=== PATIENT | female | born 1955 | race Caucasian/White ===

== ENCOUNTER 2020-09-13 16:33 | Outpatient (REF) | payer BC, SELFPAY | END 2020-09-13 16:34 | disposition home or self-care (01) | LOC: HO.LNP 16:33 | PROVIDERS: Visit Provider Hospitalist | DX: R30.0 Dysuria (principal) | CPT/HCPCS: 87086 ==

== ENCOUNTER 2020-09-23 11:01 | Outpatient (REF) | payer BC, SELFPAY | END 2020-09-23 11:02 | disposition home or self-care (01) | LOC: HO.BBR 11:01 | PROVIDERS: Visit Provider Internal Medicine Medical Oncology | DX: E83.110 Hereditary hemochromatosis (principal) | CPT/HCPCS: 99195 ==

== ENCOUNTER → 2020-10-14 11:32 | Outpatient (BNVA) | payer BC, SELFPAY | PROVIDERS: Visit Provider Internal Medicine | DX: Z76.89 Persons encountering health services in other specified circumstances (principal) ==

== ENCOUNTER 2020-10-21 12:48 | Outpatient (REF) | payer BC, SELFPAY ==
[2020-10-21 15:19] LABS: Glucose Urine UA NEG (NEG); Leukocyte Esterase Urine NEG (NEG); Nitrite Urine NEG (NEG); PH 5.5 (5.0-8.0); Urine Blood 1+ (NEG); Urine Ketones NEG (NEG); Urine Protein NEG (NEG-TRACE)
[2020-10-21 15:20] LABS: Appearance Urine CLEAR; Color Urine YELLOW
[2020-10-21 15:29] LABS: Thyroid Stimulating Hormone 5.18 uIU/mL (0.32-4.0)
[2020-10-21 15:35] LABS: Squamous Epithelial Cell Urine TRACE /LPF; WBC Urine 0 /HPF (0-4)
== END 2020-10-21 12:49 | disposition home or self-care (01) ==
LOC: HO.LAB 12:48
PROVIDERS: PCP Internal Medicine; Visit Provider Internal Medicine
DX: E03.9 Hypothyroidism, unspecified (principal); R35.0 Frequency of micturition
CPT/HCPCS: 81001; 81003; 84439; 84443

== ENCOUNTER → 2021-01-06 13:00 | Outpatient (BNV) | payer BC, SELFPAY | PROVIDERS: PCP Internal Medicine; Visit Provider Internal Medicine Medical Oncology | DX: E83.119 Hemochromatosis, unspecified (principal); M81.0 Age-related osteoporosis without current pathological fracture; Z86.000 Personal history of in-situ neoplasm of breast | CPT/HCPCS: 99213; 99214 ==

== ENCOUNTER 2021-01-10 14:59 | Outpatient (REF) | payer BC, SELFPAY | END 2021-01-10 15:00 | disposition home or self-care (01) | LOC: HO.BBR 14:59 | PROVIDERS: Visit Provider Internal Medicine Medical Oncology | DX: Z13.89 Encounter for screening for other disorder (principal) ==

== ENCOUNTER 2021-02-13 16:36 | Outpatient (REF) | payer BC, SELFPAY ==
[2021-02-13 18:09] LABS: Free T4 (Free Thyroxine) 1.22 ng/dL (0.71-1.85); Thyroid Stimulating Hormone 1.55 uIU/mL (0.32-4.0)
== END 2021-02-13 16:37 | disposition home or self-care (01) ==
LOC: HO.LAB 16:36
PROVIDERS: PCP Internal Medicine; Visit Provider Internal Medicine
DX: E03.9 Hypothyroidism, unspecified (principal)
CPT/HCPCS: 36415; 84439; 84443

== ENCOUNTER 2021-04-15 12:34 | Outpatient (REF) | payer BC, SELFPAY ==
[2021-04-15 13:56] LABS: Cholesterol 212 mg/dL; HDL Cholesterol 74 mg/dL; LDL Cholesterol Calculated 123 mg/dl; Triglycerides 76 mg/dL
== END 2021-04-15 12:35 | disposition home or self-care (01) ==
LOC: HO.LAB 12:34
PROVIDERS: Absent Provider Internal Medicine; PCP Internal Medicine; Visit Provider Internal Medicine
DX: Z00.01 Encounter for general adult medical examination with abnormal findings (principal); E03.9 Hypothyroidism, unspecified
CPT/HCPCS: 36415; 80061; 84443

== ENCOUNTER → 2021-04-21 12:50 | Outpatient (BNVA) | payer BC, SELFPAY | PROVIDERS: PCP Internal Medicine; Visit Provider Internal Medicine ==

== ENCOUNTER 2021-04-26 07:49 | Outpatient (REF) | payer BC, SELFPAY ==
--- NOTE | ~2021-04-26 | MM_ITS ---
EXAMINATION: MM SCREENING DIGITAL BREAST TOMOSYNTHESIS, BILATERAL CLINICAL INFORMATION: Screening. Asymptomatic. Prior history left lumpectomy and radiation 1997 for breast cancer. Due for yearly exam. COMPARISON: Mammography: 12/29/2019, 11/05/2018, 09/14/2017 TECHNIQUE: Digital breast tomosynthesis is performed in both the craniocaudal and mediolateral oblique views along with computer-aided detection (CAD). Synthesized 2D images are generated from the tomosynthesis. FINDINGS: There are scattered areas of fibroglandular density (ACR BI-RADS breast composition Category b). Parenchymal pattern is similar to prior exams. Left breast has post therapy changes with reduced breast size, old scarring and dystrophic calcifications posterior upper outer quadrant. Right breast is stable oval nodule posterior 3:00 position. Neither breast shows interval mass or developing density or interval architectural abnormality. There are no abnormal calcifications. The axilla are unremarkable. No significant changes. MM/MM tomosynthesis screening BI IMPRESSION: 1. No mammographic evidence of malignancy. 2. No significant changes from prior exams. 3. Post therapy changes left breast. ASSESSMENT: BI-RADS 2: Benign RECOMMENDATION: Routine annual mammography screening. This patient's information was entered into a reminder system with a target due date for their next mammogram.
== END 2021-04-26 07:50 | disposition home or self-care (01) ==
LOC: HO.MAMMO 07:49
PROVIDERS: PCP Internal Medicine; Visit Provider Internal Medicine
DX: Z12.31 Encounter for screening mammogram for malignant neoplasm of breast (principal)
CPT/HCPCS: 77063; 77067

== ENCOUNTER 2021-04-29 11:03 | Outpatient (REF) | payer BC, SELFPAY ==
[2021-04-29 14:02] LABS: Iron 147 mcg/dL (30-160); Percent Iron Saturation 49 % (15-50); Total Iron Binding Capacity 302 mcg/dL (228-428); Unsaturated Iron Binding 155 ug/dL
[2021-04-29 14:20] LABS: Ferritin 29 ng/mL (10-250)
== END 2021-04-29 11:04 | disposition home or self-care (01) ==
LOC: HO.BBR 11:03
PROVIDERS: Visit Provider Internal Medicine Medical Oncology
DX: E83.110 Hereditary hemochromatosis (principal)
CPT/HCPCS: 36415; 82728; 83540

== ENCOUNTER 2021-06-30 09:47 | Outpatient (REF) | payer BC, SELFPAY ==
--- NOTE | ~2021-06-30 | US_ITS ---
EXAMINATION: US RETROPERITONEAL COMPLETE (RENAL) CLINICAL INFORMATION: Urgency of urination. COMPARISON: None TECHNIQUE: Real-time imaging of the kidneys and bladder. FINDINGS: RIGHT KIDNEY: 11.0 x 3.9 x 5.3 cm (SAG x AP x TRV). The kidney is normal in size, contour, and echogenicity. Renal cortical thickness is normal. No calculi or focal parenchymal lesions. No hydronephrosis. LEFT KIDNEY: 10.4 x 4.3 x 4.3 cm (SAG x AP x TRV). The kidney is normal in size, contour, and echogenicity. Renal cortical thickness is normal. No calculi or focal parenchymal lesions. No hydronephrosis. BLADDER: Well distended and normal. Bilateral ureteral jets are demonstrated. Prevoid bladder volume is 492 mL. Postvoid bladder volume is 12.4 mL. US/US retroperitoneal comp IMPRESSION: Normal renal and bladder ultrasound.
== END 2021-06-30 09:48 | disposition home or self-care (01) ==
LOC: HO.US 09:47
PROVIDERS: Visit Provider Urology
DX: R39.15 Urgency of urination (principal)
CPT/HCPCS: 76770

== ENCOUNTER 2021-07-09 17:16 | Outpatient (REF) | payer BC, SELFPAY ==
[2021-07-09 18:34] LABS: Alanine Aminotransferase 15 U/L (0-31); Albumin Level 4.5 g/dL (3.5-5.0); Alkaline Phosphatase 79 U/L (39-117); Anion Gap 16 (12-20); Aspartate Amino Transferase 21 U/L (5-31); Bilirubin Total 0.3 mg/dL (0.0-1.0); Blood Urea Nitrogen 17 mg/dL (9-16); Carbon Dioxide 21 mmol/L (22-29); Chloride 106 mmol/L (96-108); Estimated Glomerular Filt Rate > 60; Glucose Random 109 mg/dL (60-115); Phosphorus 4.5 mg/dL (2.7-4.5); Potassium 4.6 mmol/L (3.3-5.1); Sodium 138 mmol/L (135-145); Total Protein 6.9 g/dL (6.5-8.0)
[2021-07-09 18:51] LABS: Free T4 (Free Thyroxine) 1.15 ng/dL (0.71-1.85); Thyroid Stimulating Hormone 2.27 uIU/mL (0.32-4.0); Vitamin D 25-OH Total 27.1 ng/mL (>30)
[2021-07-10 15:56] LABS: Calcium (PTHI) 10.2 mg/dL (8.6-10.4); PTHI 74 pg/mL (14-64)
== END 2021-07-09 17:17 | disposition home or self-care (01) ==
LOC: HO.LAB 17:16
PROVIDERS: PCP Internal Medicine; Visit Provider Internal Medicine
DX: E21.3 Hyperparathyroidism, unspecified (principal); E03.9 Hypothyroidism, unspecified; M81.0 Age-related osteoporosis without current pathological fracture; E55.9 Vitamin D deficiency, unspecified
CPT/HCPCS: 36415; 80053; 82306; 83970; 84100; 84439; 84443

== ENCOUNTER 2021-07-14 10:59 | Outpatient (REF) | payer BC, SELFPAY ==
[2021-07-14 12:04] LABS: Total Volume 24 Hour Urine 2675 mL
[2021-07-14 12:12] LABS: Creatinine, 24Hr Urine 1.1 G/Day (1.0-2.0); Creatinine, mg/dL 40.34
[2021-07-16 17:11] LABS: Calcium, 24 Hr Urine 64 mg/24 h; Calcium/Creatinine Ratio 59 mg/g creat (30-275)
== END 2021-07-14 11:00 | disposition home or self-care (01) ==
LOC: HO.LNP 10:59
PROVIDERS: Visit Provider Internal Medicine
DX: M81.0 Age-related osteoporosis without current pathological fracture (principal)
CPT/HCPCS: 82340; 82570

== ENCOUNTER 2021-07-22 15:14 | Outpatient (REF) | payer BC, SELFPAY ==
[2021-07-22 15:58] LABS: COVID-19 Test Negative (Negative); IDNOW Serial# 08D9AD1C
== END 2021-07-22 15:15 | disposition home or self-care (01) ==
LOC: HO.LAB 15:14
PROVIDERS: PCP Internal Medicine; Visit Provider Internal Medicine
DX: Z20.822 Contact with and (suspected) exposure to COVID-19 (principal)
CPT/HCPCS: 36415; 87635; C9803

== ENCOUNTER → 2021-07-28 09:41 | Outpatient (BNVA) | payer BC, SELFPAY | PROVIDERS: PCP Internal Medicine; Visit Provider Internal Medicine ==

== ENCOUNTER 2021-07-29 08:53 | Outpatient (REF) | payer BC, SELFPAY ==
--- NOTE | ~2021-07-29 | XR_ITS ---
EXAMINATION: XR CHEST CLINICAL INFORMATION: J40 - Bronchitis, not specified as acute or chronic COMPARISON: None TECHNIQUE: 2 views of the chest were obtained. FINDINGS: There are subtle bilateral apical densities which may represent pleural-parenchymal scarring and/or superimposed apical blebs. There is a subtle opacity left suprahilar region just over a centimeter. There is no hyperinflation. No lobar or segmental airspace consolidation, vascular congestion, or effusion. The heart is normal in size and the hilar and mediastinal contours are normal. The costophrenic sulci are clear. Bony structures are unremarkable. XR/XR chest 2V IMPRESSION: 1. Subtle small bilateral apical densities and left suprahilar opacity of uncertain chronicity. 2. No lobar or segmental airspace consolidation, vascular congestion, or effusion.
== END 2021-07-29 08:54 | disposition home or self-care (01) ==
LOC: HO.HMGCX 08:53
PROVIDERS: PCP Internal Medicine; Visit Provider Internal Medicine
DX: Z20.822 Contact with and (suspected) exposure to COVID-19 (principal); J40 Bronchitis, not specified as acute or chronic; J06.9 Acute upper respiratory infection, unspecified
CPT/HCPCS: 71046; U0003; U0005

== ENCOUNTER 2021-08-07 14:54 | Outpatient (REF) | payer BC, SELFPAY ==
[2021-08-07 16:29] LABS: Iron 124 mcg/dL (30-160); Percent Iron Saturation 45 % (15-50); Total Iron Binding Capacity 277 mcg/dL (228-428); Unsaturated Iron Binding 153 ug/dL
[2021-08-07 16:50] LABS: Ferritin 25 ng/mL (10-250)
== END 2021-08-07 14:55 | disposition home or self-care (01) ==
LOC: HO.BBR 14:54
PROVIDERS: Visit Provider Internal Medicine Medical Oncology
DX: E83.110 Hereditary hemochromatosis (principal)
CPT/HCPCS: 36415; 82728; 83540

== ENCOUNTER 2021-11-07 12:26 | Outpatient (REF) | payer BC, SELFPAY ==
[2021-11-07 14:31] LABS: Iron 146 mcg/dL (30-160); Percent Iron Saturation 48 % (15-50); Total Iron Binding Capacity 305 mcg/dL (228-428); Unsaturated Iron Binding 159 ug/dL
[2021-11-07 14:39] LABS: Ferritin 28 ng/mL (10-250)
== END 2021-11-07 12:27 | disposition home or self-care (01) ==
LOC: HO.BBR 12:26
PROVIDERS: PCP Internal Medicine; Visit Provider Internal Medicine Medical Oncology
DX: E83.110 Hereditary hemochromatosis (principal)
CPT/HCPCS: 36415; 82728; 83540

== ENCOUNTER 2022-01-13 08:22 | Outpatient (REF) | payer BC, SELFPAY ==
--- NOTE | ~2022-01-13 | XR_ITS ---
EXAMINATION: XR CHEST CLINICAL INFORMATION: Pleurisy. COMPARISON: Chest 07/29/2021 TECHNIQUE: 2 views of the chest were obtained. FINDINGS: The lungs are well-expanded with patchy opacity in the left upper lobe. Also visualized is bilateral apical parenchymal densities likely scarring with apical pleural thickening. Rest of the lungs are clear. Heart size and pulmonary vascularity is normal. No gross bony abnormality seen. XR/XR chest 2V IMPRESSION: The lungs are well-expanded with patchy opacity seen in left upper lobe and bilateral apical densities. No major change compared to previous study 07/29/2021.
== END 2022-01-13 08:23 | disposition home or self-care (01) ==
LOC: HO.HMGCX 08:22
PROVIDERS: PCP Internal Medicine; Visit Provider Internal Medicine
DX: R09.1 Pleurisy (principal)
CPT/HCPCS: 71046

== ENCOUNTER 2022-02-06 12:01 | Outpatient (REF) | payer BC, SELFPAY | END 2022-02-06 12:02 | disposition home or self-care (01) | LOC: HO.BBR 12:01 | PROVIDERS: Visit Provider Internal Medicine Medical Oncology | DX: Z13.89 Encounter for screening for other disorder (principal) ==

== ENCOUNTER 2022-02-26 12:49 | Outpatient (REF) | payer BC, SELFPAY | END 2022-02-26 12:50 | disposition home or self-care (01) | LOC: HO.BBR 12:49 | PROVIDERS: Visit Provider Internal Medicine Medical Oncology | DX: Z13.89 Encounter for screening for other disorder (principal) ==

== ENCOUNTER 2022-05-15 13:00 | Outpatient (REF) | payer BC, SELFPAY ==
[2022-05-15 13:18] LABS: MANUAL DIFF FLAG NO
[2022-05-15 13:20] LABS: Basophils Percent Auto 0.5 % (0-2); Eosinophils Absolute Auto 0.1 X10*3/uL (0.0-0.4); Eosinophils Percent Auto 1.8 % (0-4); Hematocrit 36.9 % (37.0-47.0); Hemoglobin 12.6 g/dl (12.0-16.0); Imm Gran Abs Auto 0.02 X10*3/uL (0.00-0.03); Imm Gran Pct Auto 0.3 % (0.0-0.4); Lymphocytes Absolute Auto 2.5 X10*3/uL (1.2-4.9); Lymphocytes Percent Auto 32.5 % (20-40); Mean Corpuscular HGB Conc 34.1 g/dl (31.0-35.0); Mean Corpuscular Volume 90.9 fL (80.0-98.0); Mean Platelet Volume 9.7 fL (9.4-12.3); Monocytes Absolute Auto 0.8 X10*3/uL (0.1-1.2); Monocytes Percent Auto 10.7 % (2-11); Neutrophils Absolute Auto 4.1 x10*3/uL (2.0-8.3); Neutrophils Percent Auto 54.2 % (45-73); Platelet Count 232 X10*3/uL (160-400); Red Blood Count 4.06 X10*6/uL (4.20-5.50); Red Cell Distribution Width 13.7 % (11.0-16.0); White Blood Count 7.6 X10*3/uL (4.8-10.8)
[2022-05-15 13:43] LABS: Iron 121 mcg/dL (30-160); Percent Iron Saturation 39 % (15-50); Total Iron Binding Capacity 310 mcg/dL (228-428); Unsaturated Iron Binding 189 ug/dL
[2022-05-15 14:03] LABS: Ferritin 20 ng/mL (10-250)
== END 2022-05-15 13:01 | disposition home or self-care (01) ==
LOC: HO.BBR 13:00
PROVIDERS: Visit Provider Internal Medicine Medical Oncology
DX: E83.110 Hereditary hemochromatosis (principal)
CPT/HCPCS: 36415; 82728; 83540; 85025

== ENCOUNTER 2022-05-22 06:22 | Day surgery (SDC) | payer BC, SELFPAY ==
[2022-05-14 10:40] VITALS: BMI 24.6
--- NOTE | 2022-05-21 12:01 | HO.ANESPROP2 ---
Documented by User: Prerna Castaneda NP 05/21/22 12:02 HPI - Anesthesia Eval Consult details Narrative: 66yo F for Colonoscopy PMFSH Active Problems Active Problems: All Active Problems (Updated 05/14/22 @ 09:47 by Olga Watson RN) Dysuria (Acute) Osteoporosis (Acute) Vitamin D deficiency (Acute) Hypothyroidism (Acute) Hyperparathyroidism (Acute) Urinary urgency (Acute) Hemochromatosis (Acute) Encounter for general adult medical examination with abnormal findings (Acute) Urinary frequency (Acute) Acute sinusitis (Acute) Bronchitis (Acute) Allergic rhinitis (Acute) Pleuritis (Acute) Past Medical History Medical History COVID-19 vaccine series completed DCIS (ductal carcinoma in situ) of breast Hemochromatosis History of breast cancer History of Graves' disease Osteoporosis Family History Family History Sister Hemochromatosis Mother Heart problem Hypertension Type 2 diabetes mellitus Hyperlipidemia Substance use disorder Mental health disorder Daughter Type 1 diabetes mellitus Father Hyperlipidemia Hypertension Type 2 diabetes mellitus Substance use disorder Daughter Mental health disorder Surgical History Surgical History H/O colonoscopy History of back surgery Hx of cataract extraction Hx of lumpectomy Social History Social History Household Members: Children Housing: House Are you a primary nurse behavioral health care to a significant other at home: No Do you presently have visiting nurse or other home services: No Alcohol intake: current Alcohol intake frequency: a few times a month Patient Tobacco Use Status: Former Tobacco user Quit Date: >5 yrs ago Years Smoked: 40 yrs Use of substances other than those prescribed or required for medical reasons: No Are you DNR?: No Advance Directives: No Advance Directives Information Provided: Yes service: No Current occupational status: employed Current occupation: [employer] Meds Allergies Allergy/AdvReac Type Severity Reaction Status Date / Time erythromycin base Allergy Intermediate Rash Verified 05/22/22 06:34 Sulfa (Sulfonamide Allergy Intermediate rash Verified 05/22/22 06:34 Antibiotics) Home Medications Medication Instructions Recorded Confirmed Last Taken Type alendronate 70 mg tablet (Fosamax) 70 mg PO QWEEK 02/14/22 06/24/22 Unknown History Exam Exam Date and Time: May 21, 2022 1201 Height,Weight and Vital Signs: Height 5 ft 3 in Weight 63.049 kg Pertinent Lab Results Pertinent Lab Results: Laboratory Tests 01/12/22 05/15/22 09:48 13:16 WBC 7.6 Hgb 12.6 Hct 36.9 L Plt Count 232 Sodium 138 Potassium 4.3 Chloride 108 Carbon Dioxide 23 BUN 12 Creatinine 0.73 Assessment and Plan Assessment Anesthesia Assessment: Chart Reviewed Documented by User: Wil Calhoun MD 05/22/22 07:28 PMFSH Past Medical History Medical History COVID-19 vaccine series completed DCIS (ductal carcinoma in situ) of breast Hemochromatosis History of breast cancer History of Graves' disease Osteoporosis Family History Family History Sister Hemochromatosis Mother Heart problem Hypertension Type 2 diabetes mellitus Hyperlipidemia Substance use disorder Mental health disorder Daughter Type 1 diabetes mellitus Father Hyperlipidemia Hypertension Type 2 diabetes mellitus Substance use disorder Daughter Mental health disorder Family history of problems with anesthesia: No Surgical History Surgical History H/O colonoscopy History of back surgery Hx of cataract extraction Hx of lumpectomy History of Problems with Anesthesia: No Social History Social History Household Members: Children Housing: House Are you a primary nurse behavioral health care to a significant other at home: No Do you presently have visiting nurse or other home services: No Alcohol intake: current Alcohol intake frequency: a few times a month Patient Tobacco Use Status: Former Tobacco user Quit Date: >5 yrs ago Years Smoked: 40 yrs Use of substances other than those prescribed or required for medical reasons: No Are you DNR?: No Advance Directives: No Advance Directives Information Provided: Yes service: No Current occupational status: employed Current occupation: [employer] Meds Allergies Allergy/AdvReac Type Severity Reaction Status Date / Time erythromycin base Allergy Intermediate Rash Verified 05/22/22 06:34 Sulfa (Sulfonamide Allergy Intermediate rash Verified 05/22/22 06:34 Antibiotics) Home Medications Medication Instructions Recorded Confirmed Last Taken Type alendronate 70 mg tablet (Fosamax) 70 mg PO QWEEK 01/12/22 05/22/22 Unknown History Exam Airway Mallampati Class: II TM Dist: >3cm Neck ROM: Full Assessment and Plan Final Anesthetic Review Family History of Problems with Anesthesia: No History of Problems with Anesthesia: No NPO: Yes ASA Class: III Final Preanesthetic Review: No Changes in Pt Med Stat, Meds/Allgs Chart Reviewed, Consent Obtained/Reviewed and Anes Risks/Benef Reviewed Patient Risk: Low Procedure Risk: Low Anesthetic Plan Anesthetic Plan: MAC: Disposition: Standard PACU
[2022-05-22 06:43] VITALS: BP 95/70; PULSE 93; RESP 16; TEMP 36.1; O2SAT 97
[2022-05-22] MEDS: Lactated Ringers 1,000 ML 100 ML IVCONT (07:00)
--- NOTE | 2022-05-22 07:29 | P.HPSUR_ITS ---
Pre-Procedural Eval Section A Date of Service: 05/22/22 Section B Chief Complaint: screening Details of Present Illness: see H&P no changes Relevant Family History (Specify if Yes): No Relevant Social History: None Present Medications: see Short Stay Collaborative assessment Medical History: No relevant PMH History of Previous Operations: No relevant previous surgery Allergies: Allergies Allergy/AdvReac Type Severity Reaction Status Date / Time erythromycin base Allergy Intermediate Rash Verified 05/22/22 06:34 Sulfa (Sulfonamide Allergy Intermediate rash Verified 05/22/22 06:34 Antibiotics) Review of Systems Sugical H&P ROS: Negative: Constitution, Cardiovascular, Respiratory, Neurological, Psychiatric, Hem-Onc, Allergic/Immunologic, Gastrointestinal, Genitourinary, Musculoskeletal, Integumentary, Endocrine and Eyes/ Ears/Nose/Throat Exam Surgical H&P Exam: Normal: HEENT, Normal: Heart, Normal: Lungs, Normal: Extremities, Normal: Abdomen, Normal: Skin and Normal: Neurological Plan Diagnosis/Plan: Unchanged I have reviewed the history and physical and performed a pertinent physical examination on my patient. No changes have occurred unless specified.
[2022-05-22 08:07] VITALS: BP 93/59; PULSE 79; RESP 16; TEMP 36.2; O2SAT 100
--- NOTE | 2022-05-22 08:10 | PM.OP ---
Brief Operative Note Date of Service: 05/22/22 Pre-op diagnosis: screening Post-op diagnosis: same Procedure: colonoscopy Surgeon: Baldemar Roger Anesthesia: MAC Was an Personal Care Worker used for this Procedure?: No Estimated blood loss (mL): 0 Pathology: other (polyp x1) Condition: stable Disposition: PACU
[2022-05-22 08:22] VITALS: BP 96/60; PULSE 78; RESP 18; TEMP 36.2; O2SAT 97
--- NOTE | 2022-05-22 08:42 | OP_ITS ---
SURGEON: Baldemar Roger MD INDICATIONS: Colon cancer screening. PREOPERATIVE DIAGNOSIS: POSTOPERATIVE DIAGNOSIS: PROCEDURE PERFORMED: Colonoscopy to the terminal ileum with snare polypectomy. ESTIMATED BLOOD LOSS: COMPLICATIONS: ANESTHESIA: ASSISTANTS: SPECIMENS: MEDICATIONS: Monitored anesthesia care. DESCRIPTION OF PROCEDURE: History and physical performed. The risks and benefits of the procedure were explained to the patient. Informed consent was obtained. The patient was placed in the left lateral decubitus position. A digital rectal exam was performed and was found to be normal. The Olympus pediatric video colonoscope was introduced into the rectum and advanced to the cecum without difficulty. The cecum was identified by transillumination, palpation, and identification of the ileocecal valve. Examination was performed. The scope was removed. She tolerated the procedure well and was taken to the recovery area in stable condition. FINDINGS: The terminal ileum was normal. The visualized colonic mucosa was normal. The quality of the prep was good. At 15 cm from the anal verge was a less than 10 mm polyp, which was removed with a snare and recovered via suction. Retroflexed examination showed small internal hemorrhoids. No other polyps were identified. IMPRESSION: Colon polyp. RECOMMENDATION: Follow up the biopsy results. MD KRYSTINA Winter/ZOHAIB / [id number]
== END 2022-05-22 08:44 | disposition home or self-care (01) ==
PROVIDERS: PCP Internal Medicine; Visit Provider Internal Medicine Gastroenterology
PROC: 0DJD8ZZ Inspection of Lower Intestinal Tract, Via Natural or Artificial Opening Endoscopic (ICD-10-PCS; CPT 45378; principal; 2022-05-22 07:30)
DX: Z12.11 Encounter for screening for malignant neoplasm of colon (principal); Z86.010 Personal history of colon polyps; K63.5 Polyp of colon; K64.8 Other hemorrhoids; E03.9 Hypothyroidism, unspecified; E83.119 Hemochromatosis, unspecified; M81.0 Age-related osteoporosis without current pathological fracture; Z85.3 Personal history of malignant neoplasm of breast; Z92.3 Personal history of irradiation; Z79.899 Other long term (current) drug therapy; Z88.1 Allergy status to other antibiotic agents; Z88.2 Allergy status to sulfonamides
CPT/HCPCS: 45385; 88305; J2405

== ENCOUNTER 2022-07-04 09:48 | Outpatient (REF) | payer BC, SELFPAY ==
[2022-07-04 10:35] LABS: Alanine Aminotransferase 13 U/L (0-31); Albumin Level 4.3 g/dL (3.5-5.0); Alkaline Phosphatase 77 U/L (39-117); Anion Gap 14 (12-20); Aspartate Amino Transferase 19 U/L (5-31); Bilirubin Total 0.5 mg/dL (0.0-1.0); Blood Urea Nitrogen 14 mg/dL (9-16); Calcium 9.4 mg/dL (8.4-10.2); Carbon Dioxide 22 mmol/L (22-29); Chloride 105 mmol/L (96-108); Estimated Glomerular Filt Rate > 60; Glucose Random 97 mg/dL (60-115); Phosphorus 3.7 mg/dL (2.7-4.5); Potassium 4.5 mmol/L (3.3-5.1); Sodium 136 mmol/L (135-145); Total Protein 6.7 g/dL (6.5-8.0)
[2022-07-04 10:58] LABS: Free T4 (Free Thyroxine) 1.62 ng/dL (0.71-1.85); Thyroid Stimulating Hormone 0.27 uIU/mL (0.32-4.0); Vitamin D 25-OH Total 30.7 ng/mL (>30)
[2022-07-06 17:32] LABS: Calcium (PTHI) 9.6 mg/dL (8.6-10.4); PTHI 77 pg/mL (16-77)
== END 2022-07-04 09:49 | disposition home or self-care (01) ==
LOC: HO.LAB 09:48
PROVIDERS: PCP Internal Medicine; Visit Provider Internal Medicine
DX: E03.9 Hypothyroidism, unspecified (principal); E55.9 Vitamin D deficiency, unspecified; M81.0 Age-related osteoporosis without current pathological fracture
CPT/HCPCS: 36415; 80053; 82306; 83970; 84100; 84439; 84443

== ENCOUNTER 2022-08-04 11:29 | Outpatient (REF) | payer BC, SELFPAY ==
--- NOTE | ~2022-08-04 | MM_ITS ---
EXAMINATION: BONE DENSITOMETRY CLINICAL INDICATION: Age-related osteoporosis without current pathological fracture. COMPARISON: Baseline BD dated 01/09/2020. This is the patient's baseline examination for the left forearm. TECHNIQUE: Using a Telly DXA System (software version: 13.1) manufactured by [employer], dual-energy x-ray absorptiometry was performed of the lumbar spine, left hip and left forearm radius 33%. The images are of good technical quality. Summary results are attached. FINDINGS: AP SPINE L1-L4: Current: BMD 0.813 g/cm2, Z-score -1.4, T-score -3.1, osteoporosis, 4.0% decrease from baseline (<5% change is not significant). Baseline: BMD 0.847 g/cm2. LEFT FEMUR, NECK: Current: BMD 0.951 g/cm2, Z-score 0.9, T-score -0.6, normal. Baseline: BMD 0.910 g/cm2. LEFT FEMUR, TOTAL: Current: BMD 0.959 g/cm2, Z-score 0.9, T-score -0.4, normal, 3.8% increase from baseline (<5% change is not significant). Baseline: BMD 0.924 g/cm2. LEFT FOREARM RADIUS 33%: BMD 0.632 g/cm2, Z-score -1.4, T-score -2.8, osteoporosis. Baseline: Not previously measured. IDENTIFIED RISK FACTORS: Hyperparathyroidism, osteoporosis, menopause. HISTORY OF FRACTURE: None listed. MEDICATIONS: Calcium supplements or multivitamin, vitamin D, bisphosphonate. MM/XR DEXA appendicular skeleton IMPRESSION: 1. DIAGNOSIS: Osteoporosis based on the lowest T-score value of -3.1 in the lumbar spine applying World Health Organization criteria. 2. 10-YEAR FRACTURE RISK PREDICTION, FRAX: According to the guidelines, FRAX calculation should only be performed on patients in the osteopenia bone density category. Therefore, FRAX was not performed on this patient. 3. Treatment Recommendations: NOF guidelines recommend consideration for treatment in postmenopausal women and men age 50 and older presenting with the following: -A hip or vertebral (clinical or morphometric) fracture. -T-score less than or equal to -2.5 at the femoral neck or spine after appropriate evaluation to exclude secondary causes. -Low bone mass at the hip or spine and a 10-year fracture probability by FRAX of greater than or equal to 3% for hip fracture or greater than or equal to 20% for major osteoporotic fracture based on the [place] adapted WHO algorithm. 4. Other Recommendations: All treatment decisions require clinical judgment and consideration of individual patient factors, including patient preferences, comorbidities, previous drug use, risk factors not captured in the FRAX model (e.g. frailty, falls, vitamin D deficiency, increased bone turnover, interval significant decline in bone density) and possible under or overestimation of fracture risk by FRAX. Additional medical evaluation for secondary cause of low bone mineral density may be appropriate. FUTURE SCAN RECOMMENDATION: People with diagnosed cases of osteoporosis or at high risk for fracture should have regular bone mineral density tests. For patients eligible for Medicare, routine testing is allowed once every 2 years. The testing frequency can be increased to one year for patients who have rapidly progressing disease, those who are receiving or discontinuing medical therapy to restore bone mass, or have additional risk factors.
== END 2022-08-04 11:30 | disposition home or self-care (01) ==
LOC: HO.MAMMO 11:29
PROVIDERS: Visit Provider Internal Medicine
DX: Z13.820 Encounter for screening for osteoporosis (principal); M81.0 Age-related osteoporosis without current pathological fracture; Z78.0 Asymptomatic menopausal state
CPT/HCPCS: 77081

== ENCOUNTER 2022-08-07 12:44 | Outpatient (REF) | payer BC, SELFPAY ==
[2022-08-07 13:08] LABS: MANUAL DIFF FLAG NO
[2022-08-07 13:11] LABS: Basophils Percent Auto 0.6 % (0-2); Eosinophils Absolute Auto 0.1 X10*3/uL (0.0-0.4); Eosinophils Percent Auto 1.6 % (0-4); Hematocrit 42.3 % (37.0-47.0); Hemoglobin 14.3 g/dl (12.0-16.0); Imm Gran Abs Auto 0.02 X10*3/uL (0.00-0.03); Imm Gran Pct Auto 0.3 % (0.0-0.4); Lymphocytes Absolute Auto 1.7 X10*3/uL (1.2-4.9); Lymphocytes Percent Auto 24.5 % (20-40); Mean Corpuscular HGB Conc 33.8 g/dl (31.0-35.0); Mean Corpuscular Hemoglobin 30.4 pg (27.0-33.0); Mean Platelet Volume 9.5 fL (9.4-12.3); Monocytes Absolute Auto 0.8 X10*3/uL (0.1-1.2); Monocytes Percent Auto 10.8 % (2-11); Neutrophils Absolute Auto 4.4 x10*3/uL (2.0-8.3); Neutrophils Percent Auto 62.2 % (45-73); Platelet Count 219 X10*3/uL (160-400); Red Cell Distribution Width 13.5 % (11.0-16.0); White Blood Count 7.1 X10*3/uL (4.8-10.8)
[2022-08-07 14:04] LABS: Iron 204 mcg/dL (30-160); Percent Iron Saturation 65 % (15-50); Total Iron Binding Capacity 313 mcg/dL (228-428); Unsaturated Iron Binding 109 ug/dL
[2022-08-07 14:23] LABS: Ferritin 21 ng/mL (10-250)
== END 2022-08-07 12:45 | disposition home or self-care (01) ==
LOC: HO.BBR 12:44
PROVIDERS: Visit Provider Internal Medicine Medical Oncology
DX: E83.110 Hereditary hemochromatosis (principal)
CPT/HCPCS: 36415; 82728; 83540; 85025

== ENCOUNTER 2022-09-10 11:45 | Outpatient (REF) | payer BC, SELFPAY ==
[2022-09-10 13:59] LABS: Free T4 (Free Thyroxine) 1.12 ng/dL (0.71-1.85); Thyroid Stimulating Hormone 4.52 uIU/mL (0.32-4.0)
== END 2022-09-10 11:46 | disposition home or self-care (01) ==
LOC: HO.LAB 11:45
PROVIDERS: PCP Internal Medicine; Visit Provider Internal Medicine
DX: E03.9 Hypothyroidism, unspecified (principal)
CPT/HCPCS: 36415; 84439; 84443

== ENCOUNTER 2022-10-30 14:00 | Outpatient (REF) | payer BC, SELFPAY | END 2022-10-30 14:01 | disposition home or self-care (01) | LOC: HO.BBR 14:00 | PROVIDERS: Visit Provider Internal Medicine Medical Oncology | DX: Z13.89 Encounter for screening for other disorder (principal) ==

== ENCOUNTER 2023-02-01 16:37 | Outpatient (REF) | payer BC, SELFPAY | END 2023-02-01 16:38 | disposition home or self-care (01) | LOC: HO.LAB 16:37 | PROVIDERS: PCP Internal Medicine; Visit Provider Internal Medicine | DX: Z13.89 Encounter for screening for other disorder (principal) ==

== ENCOUNTER → 2023-02-03 14:46 | Outpatient (BNVA) | payer BC, SELFPAY | PROVIDERS: PCP Internal Medicine; Visit Provider Internal Medicine | DX: Z13.89 Encounter for screening for other disorder (principal) ==

== ENCOUNTER 2023-02-05 11:52 | Outpatient (REF) | payer BC, SELFPAY | END 2023-02-05 11:53 | disposition home or self-care (01) | LOC: HO.BBR 11:52 | PROVIDERS: PCP Internal Medicine; Visit Provider Internal Medicine Medical Oncology | DX: Z13.89 Encounter for screening for other disorder (principal) ==

== ENCOUNTER 2023-02-22 08:50 | Outpatient (REF) | payer BC, SELFPAY ==
[2023-02-22 10:21] LABS: Total Volume 24 Hour Urine 2500 mL
[2023-02-22 10:30] LABS: Creatinine, 24Hr Urine 0.9 G/Day (1.0-2.0)
[2023-02-23 17:49] LABS: Calcium, 24 Hr Urine 25 mg/24 h; Calcium/Creatinine Ratio 30 mg/g creat (30-275); Creatinine 24Hr Urine 0.83 g/24 h (0.50-2.15)
[2023-02-28 16:54] LABS: N-Telopeptide 15 (see note); NTXCreaRU 34 mg/dL (20-275)
== END 2023-02-22 08:51 | disposition home or self-care (01) ==
LOC: HO.LNP 08:50
PROVIDERS: Visit Provider Internal Medicine
DX: M81.0 Age-related osteoporosis without current pathological fracture (principal)
CPT/HCPCS: 82340; 82523; 82570

== ENCOUNTER 2023-03-09 15:38 | Outpatient (REF) | payer BC, SELFPAY ==
--- NOTE | ~2023-03-09 | MM_ITS ---
EXAMINATION: MM SCREENING DIGITAL BREAST TOMOSYNTHESIS, BILATERAL CLINICAL INFORMATION: Screening. Asymptomatic. Remote left breast cancer status post lumpectomy and radiation, 1996. COMPARISON: Multiple prior breast imaging exams, most recent mammography 04/26/2021. TECHNIQUE: Digital breast tomosynthesis is performed in both the craniocaudal and mediolateral oblique views along with computer-aided detection (CAD). Synthesized 2D images are generated from the tomosynthesis. FINDINGS: There are scattered areas of fibroglandular density (ACR BI-RADS breast composition Category b). There are post therapy changes on the left with reduced breast size and stable scarring. There are dystrophic calcifications again seen in the scar posterior upper outer quadrant. Neither breast shows interval mass or architectural abnormality or developing density. Nodular asymmetry mid to posterior 3:00 right breast is similar to prior studies. Neither breast shows abnormal calcifications. The axilla are unremarkable. No significant changes. MM/MM tomosynthesis screening BI IMPRESSION: -No mammographic evidence of malignancy. -Post therapy changes left breast. ASSESSMENT: BI-RADS 2: Benign RECOMMENDATION: Routine annual mammography screening. This patient's information was entered into a reminder system with a target due date for their next mammogram.
== END 2023-03-09 15:39 | disposition home or self-care (01) ==
LOC: HO.MAMMO 15:38
PROVIDERS: Absent Provider Internal Medicine Medical Oncology; PCP Internal Medicine; Visit Provider Internal Medicine
DX: Z12.31 Encounter for screening mammogram for malignant neoplasm of breast (principal)
CPT/HCPCS: 77063; 77067

== ENCOUNTER 2023-03-15 16:09 | Outpatient (REF) | payer BC, SELFPAY ==
[2023-03-15 17:35] LABS: Appearance Urine Clear; Color Urine Yellow; Glucose Urine UA Negative (Negative); Leukocyte Esterase Urine Trace (Negative); Nitrite Urine Negative (Negative); Specific Gravity - Urine <= 1.005 (1.005-1.025); UMIC TRIGGER UACC YES; Urine Blood Negative (Negative); Urine Ketones Negative (Negative); Urine Protein Negative (Neg-Trace)
[2023-03-15 17:41] LABS: Bacteria Urine None Seen (None Seen); Hyaline Casts Urine 0-2 /LPF (0-2); RBC Urine 0-2 /HPF (0-2); Squamous Epithelial Cell Urine 0-2 /HPF (0-2); WBC Urine 0-5 /HPF (0-5)
[2023-03-15 18:16] LABS: Free T4 (Free Thyroxine) 1.39 ng/dL (0.71-1.85); Thyroid Stimulating Hormone 0.12 uIU/mL (0.32-4.0)
== END 2023-03-15 16:10 | disposition home or self-care (01) ==
LOC: HO.LAB 16:09
PROVIDERS: Internal Medicine; Visit Provider Internal Medicine
DX: E03.9 Hypothyroidism, unspecified (principal); R30.0 Dysuria
CPT/HCPCS: 36415; 81001; 84439; 84443

== ENCOUNTER 2023-04-13 13:55 | Outpatient (REF) | payer BC, SELFPAY | END 2023-04-13 13:56 | disposition home or self-care (01) | LOC: HO.BBR 13:55 | PROVIDERS: PCP Internal Medicine; Visit Provider Internal Medicine Medical Oncology | DX: Z13.89 Encounter for screening for other disorder (principal) ==

== ENCOUNTER 2023-05-08 10:21 | Outpatient (REF) | payer BC, SELFPAY ==
[2023-05-08 11:39] LABS: Alanine Aminotransferase 18 U/L (0-31); Albumin Level 4.4 g/dL (3.5-5.0); Alkaline Phosphatase 68 U/L (39-117); Anion Gap 15 (12-20); Aspartate Amino Transferase 24 U/L (5-31); Bilirubin Total 0.5 mg/dL (0.0-1.0); Blood Urea Nitrogen 11 mg/dL (9-16); Calcium 9.9 mg/dL (8.4-10.2); Carbon Dioxide 20 mmol/L (22-29); Chloride 108 mmol/L (96-108); Estimated Glomerular Filt Rate > 60; Glucose Random 100 mg/dL (60-115); Phosphorus 3.3 mg/dL (2.7-4.5); Potassium 4.8 mmol/L (3.3-5.1); Sodium 138 mmol/L (135-145)
[2023-05-08 11:57] LABS: Thyroid Stimulating Hormone 0.17 uIU/mL (0.32-4.0); Vitamin D 25-OH Total 38.4 ng/mL (>30)
[2023-05-11 12:39] LABS: Calcium (PTHI) 9.6 mg/dL (8.6-10.4); PTHI 111 pg/mL (16-77)
[2023-05-13 20:18] LABS: Alkaline Phosphatase Bone 9.1 mcg/L (5.6-29.0)
== END 2023-05-08 10:22 | disposition home or self-care (01) ==
LOC: HO.LAB 10:21
PROVIDERS: PCP Internal Medicine; Visit Provider Internal Medicine
DX: E03.9 Hypothyroidism, unspecified (principal); M81.0 Age-related osteoporosis without current pathological fracture; E55.9 Vitamin D deficiency, unspecified
CPT/HCPCS: 36415; 80053; 82306; 83970; 84075; 84100; 84439; 84443

== ENCOUNTER 2023-06-21 10:04 | Outpatient (REF) | payer BC, SELFPAY ==
[2023-06-21 10:23] LABS: MANUAL DIFF FLAG NO
[2023-06-21 10:26] LABS: Basophils Percent Auto 0.6 % (0-2); Eosinophils Absolute Auto 0.2 X10*3/uL (0.0-0.4); Eosinophils Percent Auto 2.2 % (0-4); Hematocrit 40.8 % (37.0-47.0); Imm Gran Abs Auto 0.02 X10*3/uL (0.00-0.03); Imm Gran Pct Auto 0.3 % (0.0-0.4); Lymphocytes Absolute Auto 1.8 X10*3/uL (1.2-4.9); Lymphocytes Percent Auto 25.9 % (20-40); Mean Corpuscular HGB Conc 34.3 g/dl (31.0-35.0); Mean Corpuscular Hemoglobin 30.3 pg (27.0-33.0); Mean Corpuscular Volume 88.3 fL (80.0-98.0); Mean Platelet Volume 9.7 fL (9.4-12.3); Monocytes Absolute Auto 0.8 X10*3/uL (0.1-1.2); Monocytes Percent Auto 10.8 % (2-11); Neutrophils Absolute Auto 4.2 x10*3/uL (2.0-8.3); Neutrophils Percent Auto 60.2 % (45-73); Platelet Count 233 X10*3/uL (160-400); Red Blood Count 4.62 X10*6/uL (4.20-5.50); Red Cell Distribution Width 13.6 % (11.0-16.0); White Blood Count 6.9 X10*3/uL (4.8-10.8)
[2023-06-21 11:17] LABS: Iron 106 mcg/dL (30-160); Percent Iron Saturation 36 % (15-50); Total Iron Binding Capacity 297 mcg/dL (228-428); Unsaturated Iron Binding 191 ug/dL
[2023-06-21 11:34] LABS: Ferritin 16 ng/mL (10-250)
== END 2023-06-21 10:05 | disposition home or self-care (01) ==
LOC: HO.BBR 10:04
PROVIDERS: PCP Internal Medicine; Visit Provider Internal Medicine Medical Oncology
DX: E83.110 Hereditary hemochromatosis (principal)
CPT/HCPCS: 36415; 82728; 83540; 85025

== ENCOUNTER 2023-06-29 15:32 | Outpatient (AMB) | payer BC, SELFPAY ==
--- NOTE | 2023-06-29 15:55 | MHC.OFFWIV ---
Intake Vital Signs 06/29/23 15:57 Height 5 ft 2 in BP 92/54 L Blood Pressure Location Rt brachial Position Sitting Pulse 87 Pulse Source Pulse Oximeter Temp 97.6 F Temp Source Temporal Artery Scan Pulse Oximetry (%) 96 Oxygen Delivery Method Room Air Intake Visit Reasons: EPRT hear pain/blocked (lobby) Intake Note: Pt is here c/o right ear pain. Pt states its been two weeks. Patient Tobacco Use Status: Former Tobacco user Quit Date: >5 yrs ago Allergies erythromycin base Allergy (Intermediate, Verified 06/29/23 15:56) Rash Sulfa (Sulfonamide Antibiotics) Allergy (Intermediate, Verified 06/29/23 15:56) rash Medication List - Last Reconciled 06/30/23 by Murtaza Awan MD alendronate (Fosamax) 70 mg PO QWEEK 30 days amoxicillin-pot clavulanate 875-125 mg 1 tab PO Q12H [id number]-duncan 325 mg-12.5 mcg -2.75 mg (Citracal-D3 Maximum Plus) 1 tab PO DAILY 30 days cetirizine 10 mg PO DAILY PRN cholecalciferol (vitamin D3) 50 mcg PO DAILY 30 days fluconazole 150 mg PO Q3D PRN 2 doses levothyroxine 100 mcg PO DAILY 30 days Do you need a note to return to daycare/school/sports/work: No HPI EPRT hear pain/blocked (lobby) HPI Details 67-year-old female presents to the office for a sick visit. Patient is unable to hear from the right ear. [facility] Medical History Allergic rhinitis Annual visit for general adult medical examination with abnormal findings COVID-19 vaccine series completed DCIS (ductal carcinoma in situ) of breast Hemochromatosis History of breast cancer History of Graves' disease Hyperparathyroidism Hypothyroidism Insomnia due to anxiety and fear Osteoporosis Osteoporosis Pain, joint, shoulder, right Urinary frequency Vitamin D deficiency Surgical History H/O colonoscopy History of back surgery Hx of cataract extraction Hx of lumpectomy Family History Sister Hemochromatosis Mother Heart problem Hypertension Type 2 diabetes mellitus Hyperlipidemia Substance use disorder Mental health disorder Daughter Type 1 diabetes mellitus Father Hyperlipidemia Hypertension Type 2 diabetes mellitus Substance use disorder Daughter Mental health disorder Social History Household Members: Children Housing: House Are you a primary pediatric care coordinator to a significant other at home: No Do you presently have visiting nurse or other home services: No Alcohol intake: current Alcohol intake frequency: a few times a month Patient Tobacco Use Status: Former Tobacco user Quit Date: >5 yrs ago Years Smoked: 40 yrs e-Cigarette/Vaping Use: Never Used service: No Current occupational status: employed Current occupation: [employer] Cognitive needs: No Hearing needs: No Vision needs: Yes Physical Exam Vital Signs: Last Vital Signs Temp 97.6 F 06/29/23 15:57 Pulse 87 06/29/23 15:57 BP 92/54 L 06/29/23 15:57 Pulse Ox 96 06/29/23 15:57 Oxygen Delivery Method Room Air 06/29/23 15:57 HEENT Other: Right ear: Wax present. Tympanic membrane not visualized Office Procedures Cerumen Removal From which ear canal was the cerumen removed: right Removal: cerumen loop/spoon Notes: patient tolerated procedure well 29875-Zfp Wax Removal by Spoon/Curette Assessment & Plan Assessment & Plan Orders: Orders AMB Cerumen Removal Today H61.21 - Impacted cerumen, right ear Coding Level of Care Code Est Pt Level 3 (73082) Diagnoses CPT Codes Office Procedure - CPT: 05283-Pvt Wax Removal by Spoon/Curette ([id number])
[2023-06-29 15:57] VITALS: BP 92/54; PULSE 87; TEMP 36.4; O2SAT 96
== END 2023-06-29 16:48 | disposition home or self-care (01) ==
PROVIDERS: PCP Internal Medicine; Visit Provider Internal Medicine
DX: H92.01 Otalgia, right ear (principal); H61.21 Impacted cerumen, right ear
CPT/HCPCS: 69210; 99213

== ENCOUNTER 2023-07-05 15:53 | Outpatient (REF) | payer BC, SELFPAY ==
[2023-07-05 17:20] LABS: Free T4 (Free Thyroxine) 1.09 ng/dL (0.71-1.85)
== END 2023-07-05 15:54 | disposition home or self-care (01) ==
LOC: HO.LAB 15:53
PROVIDERS: PCP Internal Medicine; Visit Provider Internal Medicine
DX: E03.9 Hypothyroidism, unspecified (principal)
CPT/HCPCS: 36415; 84439; 84443

== ENCOUNTER 2023-07-17 09:46 | Outpatient (REF) | payer BC, SELFPAY ==
[2023-07-17 11:19] LABS: Alanine Aminotransferase 19 U/L (0-31); Albumin Level 4.5 g/dL (3.5-5.0); Alkaline Phosphatase 68 U/L (39-117); Anion Gap 10 (12-20); Aspartate Amino Transferase 24 U/L (5-31); Bilirubin Total 0.4 mg/dL (0.0-1.0); Blood Urea Nitrogen 12 mg/dL (9-16); Calcium 9.9 mg/dL (8.4-10.2); Carbon Dioxide 23 mmol/L (22-29); Chloride 110 mmol/L (96-108); Cholesterol 252 mg/dL; Estimated Glomerular Filt Rate > 60; Glucose Random 106 mg/dL (60-115); HDL Cholesterol 94 mg/dL; LDL Cholesterol Calculated 145 mg/dl; Phosphorus 2.8 mg/dL (2.7-4.5); Potassium 4.2 mmol/L (3.3-5.1); Sodium 139 mmol/L (135-145); Total Protein 7.5 g/dL (6.5-8.0); Triglycerides 69 mg/dL
[2023-07-17 11:33] LABS: Free T4 (Free Thyroxine) 1.08 ng/dL (0.71-1.85); Vitamin D 25-OH Total 47.2 ng/mL (>30)
[2023-07-17 11:44] LABS: Appearance Urine Clear; Color Urine Yellow; Glucose Urine UA Negative (Negative); Leukocyte Esterase Urine Negative (Negative); Nitrite Urine Negative (Negative); UMIC TRIGGER UACC YES; Urine Blood Trace (Negative); Urine Ketones Negative (Negative); Urine Protein Negative (Neg-Trace)
[2023-07-17 11:48] LABS: Bacteria Urine None Seen (None Seen); Hyaline Casts Urine 0-2 /LPF (0-2); RBC Urine 0-2 /HPF (0-2); Squamous Epithelial Cell Urine 0-2 /HPF (0-2); WBC Urine 0-5 /HPF (0-5)
[2023-07-19 13:48] LABS: Calcium (PTHI) 9.6 mg/dL (8.6-10.4); PTHI 117 pg/mL (16-77)
[2023-07-25 08:34] LABS: Alkaline Phosphatase Bone 10.2 mcg/L (5.6-29.0)
[2023-07-27 03:47] LABS: N-Telopeptide 26 (see note); NTXCreaRU 42 mg/dL (20-275)
== END 2023-07-17 09:47 | disposition home or self-care (01) ==
LOC: HO.LAB 09:46
PROVIDERS: PCP Internal Medicine; Visit Provider Internal Medicine
DX: E55.9 Vitamin D deficiency, unspecified (principal); Z00.01 Encounter for general adult medical examination with abnormal findings; E03.9 Hypothyroidism, unspecified; M81.0 Age-related osteoporosis without current pathological fracture; E21.3 Hyperparathyroidism, unspecified; R30.0 Dysuria
CPT/HCPCS: 36415; 80053; 80061; 81001; 82306; 82523; 83970; 84075; 84100; 84439; 84443

== ENCOUNTER 2023-08-04 12:18 | Outpatient (AMB) | payer BC, SELFPAY ==
--- NOTE | 2023-08-04 12:18 | MHC.OFFVIS ---
Intake Intake Visit Reasons: Osteoporosis Intake Note: Osteoporosis follow up visit. 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: No Allergies erythromycin base Allergy (Intermediate, Verified 08/04/23 12:50) Rash Sulfa (Sulfonamide Antibiotics) Allergy (Intermediate, Verified 08/04/23 12:50) rash Medication List - Last Reconciled 08/04/23 by Jane Marsh, alendronate (Fosamax) 70 mg PO QWEEK 30 days yaciwtt-D8-djgl-copper-duncan 325 mg-12.5 mcg -2.75 mg (Citracal-D3 Maximum Plus) 1 tab PO DAILY 30 days cetirizine 10 mg PO DAILY PRN cholecalciferol (vitamin D3) 50 mcg PO DAILY 30 days levothyroxine 100 mcg PO DAILY 30 days HPI HPI Comments History of Present Illness Details 67 YO Female with PMHx Grave's Disease and Osteoporosis who is seen in F/U for Osteoporosis. First diagnosed in 2019 with her first screening BMD. She does have a history of Grave's disease s/p I131 ablation, now with hypothyroidism on Levothyroxine 112 mcg PO daily. Labs are in the hypothyroid range. She also had very high PTH levels in the past, and has had hypercalcemia off and on since 2003. We checked labs 06/05/2020 with Calcium 10.0, Alb 4.6, PTH 71, Vitamin D 47.5. Urine 24 hour Calcium was 81, and this was an adequate collection. Labs were repeated 08/07/2020 with Calcium 9.8, Albumin 4.4, PTH 68, Vitamin D 34.7. 24 hour urine calcium was assessed and was 59, with an adequate collection. She had an US of the thyroid which revealed what appeared to be a R sided parathyroid adenoma. We had a discussion regarding referral to Endocrine surgery for evaluation for hyperparathyroidism and potential surgical parathyroidectomy, vs attempting Fosamax therapy and reassess her BMD. She opted to attempt Fosamax therapy and this was started 06/2021, however she only used this for 3 weeks and then stopped it of her own accord. She reports no significant side effects of the medication, she stopped it due to life stressors. She then resumed this 06/2022 and remains on it now. No history of pathologic fracture or ONJ. Has 1 servings of dietary calcium per day in the form of milk, cheese or yogurt. Takes Citracal 1 tab PO daily. Taking Vitamin D 2000 IU daily. Denies ever using PPI, anticoagulant, antiepileptic or chronic glucocorticoid medication. Does no weight bearing exercise daily. Fracture history: Denies Height loss: Has lost 2 inches of height. 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 , breast fed for 1 year in total. History of Kidney stones: Denies Denies a family history of Osteoporosis or hip fracture. UTD on dental cleanings and sees dentist every 6 months. No planned upcoming dental work or extractions. DXA: 08/04/2022 FINDINGS: AP SPINE L1-L4: Current: BMD 0.813 g/cm2, Z-score -1.4, T-score -3.1, osteoporosis, 4.0% decrease from baseline (<5% change is not significant). Baseline: BMD 0.847 g/cm2. LEFT FEMUR, NECK: Current: BMD 0.951 g/cm2, Z-score 0.9, T-score -0.6, normal. Baseline: BMD 0.910 g/cm2. LEFT FEMUR, TOTAL: Current: BMD 0.959 g/cm2, Z-score 0.9, T-score -0.4, normal, 3.8% increase from baseline (<5% change is not significant). Baseline: BMD 0.924 g/cm2. LEFT FOREARM RADIUS 33%: BMD 0.632 g/cm2, Z-score -1.4, T-score -2.8, osteoporosis. Baseline: Not previously measured. Thyroid US: 06/11/2020 Right Thyroid Lobe: 2.3 x 0.8 x 1.4 cm, volume 1.4 mL. Parenchyma: The gland echotexture is heterogeneous. Thyroid vascularity is normal. Left Thyroid Lobe: 1.6 x 0.5 x 1.1 cm, volume 0.5 mL. Parenchyma: The gland echotexture is heterogeneous. Thyroid vascularity is normal. Isthmus: 0.1 cm in maximum AP dimension. RIGHT THYROID LOBE: No definitive thyroid nodules. However, there is a well-circumscribed, heterogeneously isoechoic, ovoid structure with peripheral hypoechoic rind posterior to the right thyroid lobe that may represent a lymph node, measuring 0.5 x 0.3 x 0.7 cm. ISTHMUS: No nodules. LEFT THYROID LOBE: No nodules. NODES: Other than the aforementioned nodule directly posterior to the right thyroid lobe, there are no enlarged. Thyroid lymph nodes. Labs: Laboratory Tests 07/17/23 07/17/23 07/17/23 06:35 10:16 10:16 Creatinine 0.77 Estimated GFR > 60 Albumin 4.5 N-Telopeptide X-li nked 26 25-OH Vitamin D To nichelle 47.2 TSH 0.90 Free T4 1.08 PTH Intact Calcium (PTH Intac t) 07/17/23 10:16 Creatinine Estimated GFR Albumin N-Telopeptide X-li nked 25-OH Vitamin D To nichelle TSH Free T4 PTH Intact 117 H Calcium (PTH Intac t) 9.6 PFSH Medical History Allergic rhinitis Annual visit for general adult medical examination with abnormal findings COVID-19 vaccine series completed DCIS (ductal carcinoma in situ) of breast Hemochromatosis History of breast cancer History of Graves' disease Hyperparathyroidism Hypothyroidism Insomnia due to anxiety and fear Osteoporosis Osteoporosis Pain, joint, shoulder, right Urinary frequency Vitamin D deficiency Surgical History H/O colonoscopy History of back surgery Hx of cataract extraction Hx of lumpectomy Family History Sister Hemochromatosis Mother Heart problem Hypertension Type 2 diabetes mellitus Hyperlipidemia Substance use disorder Mental health disorder Daughter Type 1 diabetes mellitus Father Hyperlipidemia Hypertension Type 2 diabetes mellitus Substance use disorder Daughter Mental health disorder Social History Household Members: Children Housing: House Are you a primary physician assistant primary care to a significant other at home: No Do you presently have visiting nurse or other home services: No Alcohol intake: current Alcohol intake frequency: a few times a month Patient Tobacco Use Status: Former Tobacco user Quit Date: >5 yrs ago Years Smoked: 40 yrs e-Cigarette/Vaping Use: Never Used service: No Current occupational status: employed Current occupation: [employer] Cognitive needs: No Hearing needs: No Vision needs: Yes Assessment & Plan Assessment & Plan (1) Hyperparathyroidism: Code(s): E21.3 - Hyperparathyroidism, unspecified Plan: Patient with elevated PTH, but with low urinary calcium. I suspect this is related to low calcium intake, with secondary hyperparathyroidism, however early primary hyperparathyroidism remains in the differential. We reviewed that her labs remain in the rod area. She does have what appears to be a parathyroid adenoma on US, which further complicates things. We reviewed management options in the form of referral to endocrine surgery for discussion about surgical parathyroidectomy. We also reviewed the option of oral bisphosphonate with repeat DEXA to assess for improvements. If BMD worsens, she will have failed treatment which will further convince us this represents PHPT and surgery would be indicated. She opted to begin Fosamax and began this 06/2022. She repeated her DXA 07/2022 which was only 1 month later thus these results are not indictative of treatment failure. Plan for now is to continue with Fosamax and repeat her BMD 06/2024 after 2 full years of treatment. If BMD is worsening, this will lend toward a diagnosis of primary hyperparathyroidism and I will discuss a surgical parathyroidectomy with her. If BMD is improving, we will continue with Fosamax. We discussed potential ADRs of flu like symptoms with body aches, osteonecrosis of the jaw and atypical fracture. All questions were answered. We also discussed proper dosing instructions, once a week on an empty stomach with a glass of water, remaining upright for 30 minutes afterwards. All of her questions were answered. She is in agreement with this plan of care. I spent 20 minutes in reviewing the record, seeing the patient and documenting in the medical record including 5 minutes on the phone with the patient. (2) Hypothyroidism: Code(s): E03.9 - Hypothyroidism, unspecified Plan: Patient with Hypothyroidism. TSH is WNL. She will remain on levothyroxine 100 mcg PO daily. (3) Vitamin D deficiency: Code(s): E55.9 - Vitamin D deficiency, unspecified Plan: Vitamin D at goal. No changes. (4) Osteoporosis: Code(s): M81.0 - Age-related osteoporosis without current pathological fracture Plan: Patient with Osteoporosis of the spine. Workup for secondary causes revealed elevated PTH with low urinary calcium on 2 checks. 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 She does have a history of Hemochromatosis and underwent menopause at a relatively young age, which is likely the reason for her Osteoporosis, but there may be some degree of PHPT. Management as per hyperparathyroidism section. Medications: Refilled levothyroxine 100 mcg PO DAILY 30 days 30 tabs 3RF E03.9 - Hypothyroidism, unspecified alendronate (Fosamax) 70 mg PO QWEEK 30 days 5 tabs 11RF cholecalciferol (vitamin D3) 50 mcg PO DAILY 30 caps 11RF 30 days E55.9 - Vitamin D deficiency, unspecified Telehealth Telehealth Location of provider rendering services: practice address Location of patient: address on file Patient Identification confirmed using: Name, : Yes Telehealth method: voice only Patient verbally consented to treatment: Yes Patient verbally consented to billing insurance company: Yes Patient informed of any privacy concerns related to visit: Yes Coding Level of Care Code Tele Est Pt Level 3 (21520) Diagnoses Hyperparathyroidism E21.3 Hypothyroidism E03.9 Vitamin D deficiency E55.9 Osteoporosis M81.0
== END 2023-08-04 16:25 | disposition home or self-care (01) ==
LOC: HO.ENCR 12:18
PROVIDERS: PCP Internal Medicine; Visit Provider Internal Medicine
DX: E21.3 Hyperparathyroidism, unspecified (principal); E03.9 Hypothyroidism, unspecified; E55.9 Vitamin D deficiency, unspecified; M81.0 Age-related osteoporosis without current pathological fracture
CPT/HCPCS: 99441

== ENCOUNTER → 2023-08-04 12:18 | Outpatient (BNVA) | payer BC, SELFPAY | PROVIDERS: PCP Internal Medicine; Visit Provider Internal Medicine ==

== ENCOUNTER 2023-09-09 12:56 | Outpatient (REF) | payer BC, SELFPAY | END 2023-09-09 12:57 | disposition home or self-care (01) | LOC: HO.BBR 12:56 | PROVIDERS: PCP Internal Medicine; Visit Provider Internal Medicine Medical Oncology | DX: Z13.89 Encounter for screening for other disorder (principal) ==

== ENCOUNTER 2023-11-09 15:35 | Outpatient (AMB) | payer BC, SELFPAY ==
--- NOTE | 2023-11-09 15:48 | A.OFFVIS_ITS ---
Intake Vital Signs 11/09/23 15:49 Height 5 ft 2.54 in Weight 144 lb 9.972 oz BMI 26.0 BP 102/66 Blood Pressure Location Rt brachial Position Sitting Pulse 85 Pulse Source Pulse Oximeter Intake Visit Reasons: Osteoporosis/Hyperparathyroidism-LVM Intake Note: Patient present for Osteoporosis and Hyperparathyroidism follow up visit. Previously followed by Dr. Presley. Soft Shoe Dancer Required: No Accompanied by: Self / Same As Patient Allergies erythromycin base Allergy (Intermediate, Verified 11/09/23 15:51) Rash Sulfa (Sulfonamide Antibiotics) Allergy (Intermediate, Verified 11/09/23 15:51) rash Medication List - Last Reconciled 11/09/23 by Reagan Muniz MD alendronate (Fosamax) 70 mg PO QWEEK 30 days kajunyt-V2-ylje-copper-duncan 325 mg-12.5 mcg -2.75 mg (Citracal-D3 Maximum Plus) 1 tab PO DAILY 30 days cetirizine 10 mg PO DAILY PRN cholecalciferol (vitamin D3) 50 mcg PO DAILY 30 days levothyroxine 100 mcg PO DAILY 30 days HPI HPI Comments History of Present Illness Details 68 YO Female with PMHx Grave's Disease and Osteoporosis who is seen in F/U for Osteoporosis. The patient last saw Dr. Presley on 08/04/2023 First diagnosed in 2019 with her first screening BMD. She does have a history of Grave's disease s/p I131 ablation, now with hypothyroidism on Levothyroxine 112 mcg PO daily. Labs are in the hypothyroid range. She also had very high PTH levels in the past, and has had hypercalcemia off and on since 2003. We checked labs 06/05/2020 with Calcium 10.0, Alb 4.6, PTH 71, Vitamin D 47.5. Urine 24 hour Calcium was 81, and this was an adequate collection. Labs were repeated 08/07/2020 with Calcium 9.8, Albumin 4.4, PTH 68, Vitamin D 34.7. 24 hour urine calcium was assessed and was 59, with an adequate collection. She had an US of the thyroid which revealed what appeared to be a R sided parathyroid adenoma. We had a discussion regarding referral to Endocrine surgery for evaluation for hyperparathyroidism and potential surgical parathyroidectomy, vs attempting Fosamax therapy and reassess her BMD. She opted to attempt Fosamax therapy and this was started 06/2021, however she only used this for 3 weeks and then stopped it of her own accord. She reports no significant side effects of the medication, she stopped it due to life stressors. She then resumed this 06/2022 and remains on it now. No history of pathologic fracture or ONJ. Has 1 servings of dietary calcium per day in the form of milk, cheese or yogurt. Takes Citracal 1 tab PO daily. Taking Vitamin D 2000 IU daily. Denies ever using PPI, anticoagulant, antiepileptic or chronic glucocorticoid medication. Does no weight bearing exercise daily. Fracture history: Denies Height loss: Has lost 2 inches of height. 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 , breast fed for 1 year in total. History of Kidney stones: Denies Denies a family history of Osteoporosis or hip fracture. UTD on dental cleanings and sees dentist every 6 months. No planned upcoming dental work or extractions. DXA: 08/04/2022 FINDINGS: AP SPINE L1-L4: Current: BMD 0.813 g/cm2, Z-score -1.4, T-score -3.1, osteoporosis, 4.0% decrease from baseline (<5% change is not significant). Baseline: BMD 0.847 g/cm2. LEFT FEMUR, NECK: Current: BMD 0.951 g/cm2, Z-score 0.9, T-score -0.6, normal. Baseline: BMD 0.910 g/cm2. LEFT FEMUR, TOTAL: Current: BMD 0.959 g/cm2, Z-score 0.9, T-score -0.4, normal, 3.8% increase from baseline (<5% change is not significant). Baseline: BMD 0.924 g/cm2. LEFT FOREARM RADIUS 33%: BMD 0.632 g/cm2, Z-score -1.4, T-score -2.8, osteoporosis. Baseline: Not previously measured. Thyroid US: 06/11/2020 Right Thyroid Lobe: 2.3 x 0.8 x 1.4 cm, volume 1.4 mL. Parenchyma: The gland echotexture is heterogeneous. Thyroid vascularity is normal. Left Thyroid Lobe: 1.6 x 0.5 x 1.1 cm, volume 0.5 mL. Parenchyma: The gland echotexture is heterogeneous. Thyroid vascularity is normal. Isthmus: 0.1 cm in maximum AP dimension. RIGHT THYROID LOBE: No definitive thyroid nodules. However, there is a well-circumscribed, heterogeneously isoechoic, ovoid structure with peripheral hypoechoic rind posterior to the right thyroid lobe that may represent a lymph node, measuring 0.5 x 0.3 x 0.7 cm. ISTHMUS: No nodules. LEFT THYROID LOBE: No nodules. NODES: Other than the aforementioned nodule directly posterior to the right thyroid lobe, there are no enlarged. Thyroid lymph nodes. Labs: Laboratory Tests 07/17/23 07/17/23 07/17/23 06:35 10:16 10:16 Creatinine 0.77 Estimated GFR > 60 Albumin 4.5 N-Telopeptide X-li nked 26 25-OH Vitamin D To nichelle 47.2 TSH 0.90 Free T4 1.08 PTH Intact Calcium (PTH Intac t) 07/17/23 10:16 Creatinine Estimated GFR Albumin N-Telopeptide X-li nked 25-OH Vitamin D To nichelle TSH Free T4 PTH Intact 117 H Calcium (PTH Intac t) 9.6 PFSH Medical History Allergic rhinitis Annual visit for general adult medical examination with abnormal findings COVID-19 vaccine series completed DCIS (ductal carcinoma in situ) of breast Hemochromatosis History of breast cancer History of Graves' disease Hyperparathyroidism Hypothyroidism Insomnia due to anxiety and fear Osteoporosis Osteoporosis Pain, joint, shoulder, right Urinary frequency Vitamin D deficiency Surgical History History of back surgery H/O colonoscopy Hx of cataract extraction Hx of lumpectomy Family History Sister Hemochromatosis Mother Heart problem Hypertension Type 2 diabetes mellitus Hyperlipidemia Substance use disorder Mental health disorder Daughter Type 1 diabetes mellitus Father Hyperlipidemia Hypertension Type 2 diabetes mellitus Substance use disorder Daughter Mental health disorder Social History Household Members: Children Housing: House Are you a primary home care and home health aides teacher to a significant other at home: No Do you presently have visiting nurse or other home services: No Alcohol intake: current Alcohol intake frequency: a few times a month Patient Tobacco Use Status: Former Tobacco user Quit Date: >5 yrs ago Years Smoked: 40 yrs e-Cigarette/Vaping Use: Never Used service: No Current occupational status: employed Current occupation: [employer] Cognitive needs: No Hearing needs: No Vision needs: Yes Physical Exam Vital Signs: Last Vital Signs Pulse 85 11/09/23 15:49 BP 102/66 11/09/23 15:49 BMI result Body Mass Index 26.0 Assessment & Plan Assessment & Plan (1) Hyperparathyroidism: Code(s): E21.3 - Hyperparathyroidism, unspecified Plan: Plan as per osteoporosis management (2) Osteoporosis: Code(s): M81.0 - Age-related osteoporosis without current pathological fracture Plan: This 68-year-old white female with history of osteoporosis with secondary workup consistent elevated PTH and low urinary calcium consistent with secondary hyperparathyroidism due to low calcium intake. Use of bisphosphonate could also raise PTH The plan is to hold bisphosphonate alendronate and recheck calcium, albumin, PTH, 24 hour urine for calcium and creatinine in 6 wks . Depending on above may consider adjusting calcium intake. If follow-up labs are consistent with primary hyperparathyroidism, patient would be a candidate for parathyroid exploration (3) Hypothyroidism: Code(s): E03.9 - Hypothyroidism, unspecified Plan: Plan is to recheck TSH and free T4 adjust levothyroxine accordingly Orders: Orders Calcium Today E21.3 - Hyperparathyroidism, unspecified, M81.0 - Age-related osteoporosis without current pathological fracture Creatinine, 24 Hr Group Today E21.3 - Hyperparathyroidism, unspecified, M81.0 - Age-related osteoporosis without current pathological fracture Free T4 (Free Thyroxine) Today E03.9 - Hypothyroidism, unspecified Albumin Level Today E21.3 - Hyperparathyroidism, unspecified, M81.0 - Age- related osteoporosis without current pathological fracture Parathyroid Hormone Intact Today E21.3 - Hyperparathyroidism, unspecified, M81.0 - Age-related osteoporosis without current pathological fracture Vitamin D 25-OH Total Today E21.3 - Hyperparathyroidism, unspecified, M81.0 - Age-related osteoporosis without current pathological fracture Calcium, 24 Hr Ur Today E21.3 - Hyperparathyroidism, unspecified, M81.0 - Age- related osteoporosis without current pathological fracture Thyroid Stimulating Hormone Today E03.9 - Hypothyroidism, unspecified Coding Level of Care Code Est Pt Level 3 (60315) Diagnoses Hyperparathyroidism E21.3 Osteoporosis M81.0 Hypothyroidism E03.9
[2023-11-09 15:49] VITALS: BP 102/66; PULSE 85; BMI 26.0
== END 2023-11-09 16:28 | disposition home or self-care (01) ==
PROVIDERS: PCP Internal Medicine; Visit Provider Internal Medicine Endocrinology, Diabetes & Metabolism
DX: E21.3 Hyperparathyroidism, unspecified (principal); M81.0 Age-related osteoporosis without current pathological fracture; E03.9 Hypothyroidism, unspecified
CPT/HCPCS: 99213

== ENCOUNTER → 2023-11-09 15:35 | Outpatient (BNVA) | payer BC, SELFPAY | PROVIDERS: PCP Internal Medicine; Visit Provider Internal Medicine Endocrinology, Diabetes & Metabolism ==

== ENCOUNTER 2023-12-10 13:46 | Outpatient (REF) | payer BC, SELFPAY ==
[2023-12-10 14:39] LABS: MANUAL DIFF FLAG NO
[2023-12-10 14:46] LABS: Basophils Percent Auto 0.4 % (0-2); Eosinophils Absolute Auto 0.1 X10*3/uL (0.0-0.4); Eosinophils Percent Auto 0.8 % (0-4); Hematocrit 40.8 % (37.0-47.0); Hemoglobin 13.9 g/dl (12.0-16.0); Imm Gran Abs Auto 0.02 X10*3/uL (0.00-0.03); Imm Gran Pct Auto 0.2 % (0.0-0.4); Lymphocytes Percent Auto 21.8 % (20-40); Mean Corpuscular HGB Conc 34.1 g/dl (31.0-35.0); Mean Corpuscular Hemoglobin 30.3 pg (27.0-33.0); Mean Corpuscular Volume 88.9 fL (80.0-98.0); Mean Platelet Volume 10.2 fL (9.4-12.3); Monocytes Absolute Auto 0.9 X10*3/uL (0.1-1.2); Monocytes Percent Auto 9.4 % (2-11); Neutrophils Absolute Auto 6.3 x10*3/uL (2.0-8.3); Neutrophils Percent Auto 67.4 % (45-73); Platelet Count 250 X10*3/uL (160-400); Red Blood Count 4.59 X10*6/uL (4.20-5.50); Red Cell Distribution Width 14.4 % (11.0-16.0); White Blood Count 9.3 X10*3/uL (4.8-10.8)
[2023-12-10 15:41] LABS: Iron 163 mcg/dL (30-160); Percent Iron Saturation 56 % (15-50); Total Iron Binding Capacity 293 mcg/dL (228-428); Unsaturated Iron Binding 130 ug/dL
[2023-12-10 15:54] LABS: Ferritin 16 ng/mL (10-250)
== END 2023-12-10 13:47 | disposition home or self-care (01) ==
LOC: HO.BBR 13:46
PROVIDERS: PCP Internal Medicine; Visit Provider Internal Medicine Medical Oncology
DX: E83.110 Hereditary hemochromatosis (principal)
CPT/HCPCS: 36415; 82728; 83540; 85025

== ENCOUNTER 2024-01-29 10:07 | Outpatient (REF) | payer BC, SELFPAY ==
[2024-01-29 11:19] LABS: Parathyroid Hormone Intact 105.9 pg/mL (8.7-77.1)
[2024-01-29 11:23] LABS: Alanine Aminotransferase 14 U/L (0-31); Albumin Level 4.3 g/dL (3.5-5.0); Alkaline Phosphatase 76 U/L (39-117); Anion Gap 12 (12-20); Aspartate Amino Transferase 20 U/L (5-31); Bilirubin Total 0.3 mg/dL (0.0-1.0); Blood Urea Nitrogen 16 mg/dL (9-16); Calcium 9.7 mg/dL (8.4-10.2); Carbon Dioxide 25 mmol/L (22-29); Chloride 104 mmol/L (96-108); Estimated Glomerular Filt Rate > 60; Glucose Random 98 mg/dL (60-115); Phosphorus 3.6 mg/dL (2.7-4.5); Potassium 4.3 mmol/L (3.3-5.1); Sodium 137 mmol/L (135-145); Total Protein 7.1 g/dL (6.5-8.0)
[2024-01-29 11:42] LABS: Free T4 (Free Thyroxine) 1.28 ng/dL (0.71-1.85); Thyroid Stimulating Hormone 2.54 uIU/mL (0.32-4.0); Vitamin D 25-OH Total 48.1 ng/mL (>30)
== END 2024-01-29 10:08 | disposition home or self-care (01) ==
LOC: HO.LAB 10:07
PROVIDERS: PCP Internal Medicine; Visit Provider Internal Medicine Endocrinology, Diabetes & Metabolism
DX: E21.3 Hyperparathyroidism, unspecified (principal); E03.9 Hypothyroidism, unspecified; M81.0 Age-related osteoporosis without current pathological fracture
CPT/HCPCS: 36415; 80053; 82306; 83970; 84100; 84439; 84443

== ENCOUNTER 2024-01-31 07:37 | Outpatient (REF) | payer BC, SELFPAY ==
[2024-01-31 08:25] LABS: Appearance Urine Cloudy; Color Urine Yellow; Glucose Urine UA Negative (Negative); Leukocyte Esterase Urine Large (3+) (Negative); Nitrite Urine Negative (Negative); UMIC TRIGGER UACC YES; Urine Blood Trace (Negative); Urine Ketones Negative (Negative); Urine Protein Negative (Neg-Trace)
[2024-01-31 08:31] LABS: Bacteria Urine Trace (None Seen); Hyaline Casts Urine 0-2 /LPF (0-2); RBC Urine 0-2 /HPF (0-2); UACC Culture Trigger YES; WBC Urine >50 /HPF (0-5)
[2024-01-31 09:03] LABS: Total Volume 24 Hour Urine 2825 mL
[2024-01-31 09:26] LABS: Creatinine, 24Hr Urine 1.1 G/Day (1.0-2.0); Creatinine, mg/dL 38.38
[2024-02-01 17:08] LABS: Calcium, 24 Hr Urine 172 mg/24 h; Calcium/Creatinine Ratio 149 mg/g creat (30-275); Creatinine 24Hr Urine 1.16 g/24 h (0.50-2.15)
== END 2024-01-31 07:38 | disposition home or self-care (01) ==
LOC: HO.LNP 07:37
PROVIDERS: Internal Medicine; Visit Provider Internal Medicine Endocrinology, Diabetes & Metabolism
DX: M81.0 Age-related osteoporosis without current pathological fracture (principal); E21.3 Hyperparathyroidism, unspecified; R30.0 Dysuria
CPT/HCPCS: 81001; 82340; 82570; 87086

== ENCOUNTER → 2024-02-08 16:12 | Outpatient (BNVA) | payer BC, SELFPAY | PROVIDERS: PCP Internal Medicine; Visit Provider Internal Medicine Endocrinology, Diabetes & Metabolism ==

== ENCOUNTER 2024-02-17 10:29 | Outpatient (AMB) | payer BC, SELFPAY ==
[2024-02-17 10:31] VITALS: BP 128/70; PULSE 91; TEMP 36.4; O2SAT 96; BMI 25.8
--- NOTE | 2024-02-17 10:31 | AM.OFFWIN_ITS ---
Intake Vital Signs 02/17/24 10:31 Height 5 ft 2 in Weight 141 lb BMI 25.8 BP 128/70 Blood Pressure Location Lt brachial Position Sitting Pulse 91 Pulse Source Pulse Oximeter Temp 97.5 F Temp Source Temporal Artery Scan Pulse Oximetry (%) 96 Oxygen Delivery Method Room Air Intake Visit Reasons: EP ?Sinus Infection Intake Note: pt is cheryle today for sinus infection started 1 week ago Patient Tobacco Use Status: Former Tobacco user Quit Date: >5 yrs ago Allergies erythromycin base Allergy (Intermediate, Verified 02/08/24 16:33) Rash Sulfa (Sulfonamide Antibiotics) Allergy (Intermediate, Verified 02/08/24 16:33) rash pseudoephedrine [From Sudafed] Allergy (Unknown, Verified 02/17/24 10:39) Unknown Do you need a note to return to daycare/school/sports/work: Yes HPI HPI Comments History of Present Illness Details 68 y/o female patient who presents to [facility] in clinic with c/o sinus pressure and pain x 1 week. Reports having head colds, ringing in ears and runny nose. Denies fevers, chills, nausea or vomiting. [facility] Medical History Allergic rhinitis Annual visit for general adult medical examination with abnormal findings COVID-19 vaccine series completed DCIS (ductal carcinoma in situ) of breast Hemochromatosis History of breast cancer History of Graves' disease Hyperparathyroidism Hypothyroidism Insomnia due to anxiety and fear Osteoporosis Osteoporosis Pain, joint, shoulder, right Urinary frequency Vitamin D deficiency Surgical History History of back surgery H/O colonoscopy Hx of cataract extraction Hx of lumpectomy Family History Sister Hemochromatosis Mother Heart problem Hypertension Type 2 diabetes mellitus Hyperlipidemia Substance use disorder Mental health disorder Daughter Type 1 diabetes mellitus Father Hyperlipidemia Hypertension Type 2 diabetes mellitus Substance use disorder Daughter Mental health disorder Social History Household Members: Children Housing: House Are you a primary interior plant caretaker to a significant other at home: No Do you presently have visiting nurse or other home services: No Alcohol intake: current Alcohol intake frequency: a few times a month Patient Tobacco Use Status: Former Tobacco user Quit Date: >5 yrs ago Years Smoked: 40 yrs e-Cigarette/Vaping Use: Never Used service: No Current occupational status: employed Current occupation: [employer] Cognitive needs: No Hearing needs: No Vision needs: Yes Review of Systems Const All systems reviewed & are unremarkable except as noted in HPI and below Physical Exam Vital Signs: Last Vital Signs Temp 97.5 F 02/17/24 10:31 Pulse 91 02/17/24 10:31 BP 128/70 02/17/24 10:31 Pulse Ox 96 02/17/24 10:31 Oxygen Delivery Method Room Air 02/17/24 10:31 BMI result Body Mass Index 25.8 Const General: comfortable and no acute distress Orientation/consciousness: patient oriented x3 HEENT Head: Yes normocephalic Ears: external ears normal, TM's normal bilaterally and TM abnormal with fluid behind the TM bilateral General nose exam: Abnormal mucous membranes and turbinates present boggy and erythematous Face and sinus: Yes Facial tenderness on exam of face and sinuses Mouth: moist mucous membranes Throat: Yes posterior oropharynx normal Resp Effort & Inspection: normal respiratory effort and able to speak in complete sentences Auscultation: clear to auscultation bilaterally, no crackles, no rales, no rhonchi and no wheezes Cardio Rate: regular rate Rhythm: regular rhythm Neuro General: patient oriented x3 Assessment & Plan Assessment & Plan (1) Acute rhinosinusitis: Code(s): J01.90 - Acute sinusitis, unspecified Plan: - Abx for 7 days - Continue taking Zrytec as directed - RTC if not better. Orders: Orders SARS-CoV2/FLU/RSV Today J01.90 - Acute sinusitis, unspecified Medications: New amoxicillin 500 mg PO BID 7 days 14 caps 0RF J01.90 - Acute sinusitis, unspecified Coding Level of Care Code Est Pt Level 3 (92664) Diagnoses Acute rhinosinusitis J01.90 Time Spent (min) 15
== END 2024-02-17 11:40 | disposition home or self-care (01) ==
PROVIDERS: PCP Internal Medicine; Visit Provider Nurse Practitioner Family
DX: J01.90 Acute sinusitis, unspecified (principal)
CPT/HCPCS: 99213

== ENCOUNTER 2024-02-17 10:54 | Outpatient (REF) | payer BC, SELFPAY ==
[2024-02-17 15:40] LABS: Influenza A PCR NEGATIVE (Negative); Influenza B PCR NEGATIVE (Negative); Resp Syncy Virus RNA Qual PCR NEGATIVE (Negative); SARS COV2 PCR INHOUSE NEGATIVE (Negative)
== END 2024-02-17 10:55 | disposition home or self-care (01) ==
LOC: HO.LAB 10:54
PROVIDERS: Visit Provider Nurse Practitioner Family
DX: J01.90 Acute sinusitis, unspecified (principal)
CPT/HCPCS: 0241U

== ENCOUNTER 2024-03-03 15:34 | Outpatient (REF) | payer BC, SELFPAY | END 2024-03-03 15:35 | disposition home or self-care (01) | LOC: HO.BBR 15:34 | PROVIDERS: PCP Internal Medicine; Visit Provider Internal Medicine Medical Oncology | DX: Z13.89 Encounter for screening for other disorder (principal) ==

== ENCOUNTER 2024-05-02 13:19 | Outpatient (AMB) | payer BC, SELFPAY ==
--- NOTE | 2024-05-02 13:22 | AM.OFFWIN_ITS ---
Intake Vital Signs 05/02/24 13:23 Height 5 ft 2 in BP 108/70 Blood Pressure Location Rt brachial Position Sitting Pulse 92 Pulse Source Pulse Oximeter Temp 98.1 F Temp Source Oral Intake Visit Reasons: EP RT ear blocked/ head pressure Intake Note: pt is here for right ear blocked and head pressure and teeth pain Patient Tobacco Use Status: Former Tobacco user Quit Date: >5 yrs ago Allergies erythromycin base Allergy (Intermediate, Verified 05/02/24 13:23) Rash Sulfa (Sulfonamide Antibiotics) Allergy (Intermediate, Verified 05/02/24 13:23) rash pseudoephedrine [From Sudafed] Allergy (Unknown, Verified 05/02/24 13:23) Unknown Do you need a note to return to daycare/school/sports/work: Yes HPI HPI Comments History of Present Illness Details Patient is a 68-year-old female with past medical history of hypo thyroidism presenting with right ear blockage, pain, head pressure and tooth pain x 6 days. She also is complaining of reduced hearing on the right side. She has been taking a daily allergy pill and the congestion with minimal improvement. She did try Sudafed but it made her heart rate go up. She does have a history of sinus infections requiring Augmentin. Denies fevers. [facility] Medical History Allergic rhinitis Annual visit for general adult medical examination with abnormal findings COVID-19 vaccine series completed DCIS (ductal carcinoma in situ) of breast Hemochromatosis History of breast cancer History of Graves' disease Hyperparathyroidism Hypothyroidism Insomnia due to anxiety and fear Osteoporosis Osteoporosis Pain, joint, shoulder, right Urinary frequency Vitamin D deficiency Surgical History History of back surgery H/O colonoscopy Hx of cataract extraction Hx of lumpectomy Family History Sister Hemochromatosis Mother Heart problem Hypertension Type 2 diabetes mellitus Hyperlipidemia Substance use disorder Mental health disorder Daughter Type 1 diabetes mellitus Father Hyperlipidemia Hypertension Type 2 diabetes mellitus Substance use disorder Daughter Mental health disorder Social History Household Members: Children Housing: House Are you a primary acute care clinical nurse specialist to a significant other at home: No Do you presently have visiting nurse or other home services: No Alcohol intake: current Alcohol intake frequency: a few times a month Patient Tobacco Use Status: Former Tobacco user Years Smoked: 40 yrs e-Cigarette/Vaping Use: Never Used service: No Current occupational status: employed Current occupation: [employer] Cognitive needs: No Hearing needs: No Vision needs: Yes Review of Systems Const All systems reviewed & are unremarkable except as noted in HPI and below Physical Exam Vital Signs: Last Vital Signs Temp 98.1 F 05/02/24 13:23 Pulse 92 05/02/24 13:23 BP 108/70 05/02/24 13:23 Const General: cooperative, healthy appearing, comfortable and no acute distress Orientation/consciousness: patient oriented x3 Limitations: no limitations HEENT Head: Yes normal to inspection Ears: hearing grossly abnormal bilaterally (Reduced hearing on the right side), external ears normal, TM normal on the left, hearing grossly impaired on the right and unable to visualize TM on the right (Cerumen impaction) General nose exam: Normal external nose present, Normal nares present and No nasal discharge present Face and sinus: Yes normal facial exam and Yes sinuses nontender Mouth: Normal oral and palatal mucosa present and moist mucous membranes Throat: Yes posterior oropharynx normal Eyes General: appearance normal, both eyes and all related structures Neck Neck: Yes normal visual inspection Resp Effort & Inspection: normal respiratory effort, able to speak in complete sentences, Actively coughing, no respiratory distress, not tachypneic, no tripod positioning and no use of accessory muscles Auscultation: clear to auscultation bilaterally Cardio Rate: regular rate Rhythm: regular rhythm Heart sounds: normal S1 and S2 Skin General skin exam: no rashes or lesions noted Neuro General: patient oriented x3 Extrem General: Yes normal to inspection and Yes no clubbing, cyanosis or edema Office Procedures Cerumen Removal From which ear canal was the cerumen removed: right Removal: irrigation and otoscope w/curette Notes: patient tolerated procedure well, no complications and ear canal clear [id number] Wax Removal by Spoon/Curette Assessment & Plan Assessment & Plan (1) Impacted cerumen of right ear: Code(s): H61.21 - Impacted cerumen, right ear Plan: Removed cerumen with curette and flushing, hearing greatly improved. Recommended patient use Debrox drops as prophylaxis 1 to 2 times a month. (2) Acute sinusitis: Code(s): J01.90 - Acute sinusitis, unspecified Qualifiers: Sinusitis location: maxillary Recurrence: not specified as recurrent Qualified Code(s): J01.00 - Acute maxillary sinusitis, unspecified Plan: As it has been 6 days and her symptoms are getting worse despite using a decongestant, will prescribe prednisone and Augmentin. Plan as above Medications: New prednisone 20 mg PO DAILY 5 tabs 0RF amoxicillin-pot clavulanate 875-125 mg 1 tab PO Q12H 14 tabs 0RF Coding Level of Care Code Est Pt Level 4 (31371) Diagnoses Impacted cerumen of right ear H61.21 Acute maxillary sinusitis, recurrence not specified J01.00 Sinusitis location: maxillary Recurrence: not specified as recurrent CPT Codes Office Procedure - CPT: 06040-Nau Wax Removal by Spoon/Curette ([id number])
[2024-05-02 13:23] VITALS: BP 108/70; PULSE 92; TEMP 36.7
--- OUTSIDE RECORDS SUMMARY | 2024-05-05 09:58 | XMS_ITS | Patient Health Record ---
Author Organization [facility] Address [address] [place] [address] Care Team Providers Care Technologist Development Name Role Phone Ana BAILON, Cecy Primary Care Provider Baldemar Lopez Jr Unavailable ALLERGIES Allergen (clinical drug ingredient) Drug/Non Drug Allergy documented on EMR Reaction Allergy Type Onset Date Status Sulfa Unknown Drug Allergy Active erythromycin Erythromycin Unknown Drug Allergy A ctive sulfamethoxazole / trimethoprim Bactrim Unknown Drug Allergy Active REASON FOR REFERRAL No Information MEDICATIONS Medication SIG (Take, Route, Frequency, Duration) Notes Start Date End Date Status MiraLax (colon prep) 17 GM/SCOOP mixed with Gatorade or Crystal Light Orally begin at 5:00 p.m. the day before the procedure for 1 day 01/26/2022 Active Vitamin D3 70122 UNIT Orally Active Levothyroxine Sodium 112 MCG TK 1 T PO QD Orally Active Shannan Allergy 180 MG 1 tablet Swallow whole with water; do not take with fruit juices. Orally Once a day for 30 day(s) Active traZODone HCl 100 MG 1 tablet at bedtime Orally Once a day for 30 day(s) Active IMMUNIZATIONS Vaccine Route Administration Date Status Comme nts Influenza Unknown 10/15/2021 Administered SOCIAL HISTORY Tobacco Use: Social History Observation Description Date Details (start date - stop date) Never Smoker NA - NA Sex Assigned At : Social History Observation Description Sex Assigned At Unknown Tobacco Use/Smoking Question Answer Notes Patient is a nonsmoker PROBLEMS Problem Type ICD Code Onset Dates Problem Status W/U Status Risk SNOMED Code Notes Problem Colon cancer screening (Z12.11) Active confirmed 835512903 Problem Encounter for other preprocedural examination (Z01.818) Active confirmed 656054289 PLAN OF TREATMENT Future Test Test Name Order Date COLONOSCOPY 04/05/2015 COLONOSCOPY 01/26/2022 Insurance Providers Payer Name Payer Address Payer Phone Subscriber Number Group Number Insured Name Patient Relationship to Insured Coverage Start Date Coverage End Date [facility] [address] [place], [place] [id number] DAYRON ARCE Self - patient is the insured MEDICAL (GENERAL) HISTORY Medical History History ICD Code Colonoscopy 05/14, five-year followup for her personal history of colon polyps Hypothyroidism Hemochromatosis Osteoporosis Surgical History Surgery Date(Month/Year) back surgery breast cancer status-post lumpectomy and radiation therapy in 1996
== END 2024-05-02 14:01 | disposition home or self-care (01) ==
PROVIDERS: PCP Internal Medicine; Visit Provider Physician Assistant
DX: H61.21 Impacted cerumen, right ear (principal); J01.00 Acute maxillary sinusitis, unspecified
CPT/HCPCS: 69210; 99214

== ENCOUNTER 2024-06-02 12:48 | Outpatient (REF) | payer BC, SELFPAY ==
[2024-06-02 13:17] LABS: MANUAL DIFF FLAG NO
[2024-06-02 13:19] LABS: Basophils Absolute Auto 0.1 X10*3/uL (0.0-0.2); Basophils Percent Auto 0.8 % (0-2); Eosinophils Absolute Auto 0.2 X10*3/uL (0.0-0.4); Hematocrit 43.1 % (37.0-47.0); Hemoglobin 14.9 g/dl (12.0-16.0); Imm Gran Abs Auto 0.03 X10*3/uL (0.00-0.03); Imm Gran Pct Auto 0.4 % (0.0-0.4); Lymphocytes Absolute Auto 2.1 X10*3/uL (1.2-4.9); Lymphocytes Percent Auto 28.3 % (20-40); Mean Corpuscular HGB Conc 34.6 g/dl (31.0-35.0); Mean Corpuscular Hemoglobin 30.3 pg (27.0-33.0); Mean Corpuscular Volume 87.6 fL (80.0-98.0); Mean Platelet Volume 9.7 fL (9.4-12.3); Monocytes Absolute Auto 0.9 X10*3/uL (0.1-1.2); Monocytes Percent Auto 12.3 % (2-11); Neutrophils Absolute Auto 4.3 x10*3/uL (2.0-8.3); Neutrophils Percent Auto 56.2 % (45-73); Platelet Count 237 X10*3/uL (160-400); Red Blood Count 4.92 X10*6/uL (4.20-5.50); Red Cell Distribution Width 15.1 % (11.0-16.0); White Blood Count 7.6 X10*3/uL (4.8-10.8)
[2024-06-02 14:00] LABS: Iron 190 mcg/dL (30-160); Percent Iron Saturation 60 % (15-50); Total Iron Binding Capacity 316 mcg/dL (228-428); Unsaturated Iron Binding 126 ug/dL
[2024-06-02 14:17] LABS: Ferritin 16 ng/mL (10-250)
== END 2024-06-02 12:49 | disposition home or self-care (01) ==
LOC: HO.BBR 12:48
PROVIDERS: PCP Internal Medicine; Visit Provider Internal Medicine Medical Oncology
DX: E83.110 Hereditary hemochromatosis (principal)
CPT/HCPCS: 36415; 82728; 83540; 85025

== ENCOUNTER 2024-06-29 15:32 | Outpatient (AMB) | payer BC, SELFPAY ==
[2024-06-29 15:49] VITALS: BP 110/70; PULSE 81; O2SAT 94; BMI 27.2
--- NOTE | 2024-06-29 15:49 | MHC.PC.OV ---
Vital Signs 06/29/24 15:49 Height 5 ft 2 in Weight 149 lb BMI 27.2 BP 110/70 Blood Pressure Location Rt brachial Position Sitting Pulse 81 Pulse Source Pulse Oximeter Pulse Oximetry (%) 94 Oxygen Delivery Method Room Air Intake Visit Reasons: Annual PE/ok Intake Note: Pt is here today for her PE: Last mammogram 03/09/23, bone density scan 08/04/22, colonoscopy 05/22/22 Allergies erythromycin base Allergy (Intermediate, Verified 06/29/24 16:08) Rash Sulfa (Sulfonamide Antibiotics) Allergy (Intermediate, Verified 06/29/24 16:08) rash pseudoephedrine [From Sudafed] Allergy (Unknown, Verified 06/29/24 16:08) Unknown Medication List - Last Reconciled 06/29/24 by Cecy Perez MD [id number] 325 mg-12.5 mcg -2.75 mg (Citracal-D3 Maximum Plus) 1 tab PO DAILY 30 days cetirizine 10 mg PO DAILY PRN cholecalciferol (vitamin D3) 50 mcg PO DAILY 30 days levothyroxine 100 mcg PO DAILY Tobacco use date assessed: 06/29/24 Fall risk assessment: No Falls in past year Last assessed Fall Risk: 06/29/24 Dental Screening Dental Screen Date: 06/29/24 Did you have a dental visit in the last 12 months?: Yes Did you have a dental problem in the last 6 months where you did not have access to dental care?: No Was dental information given to patient?: Patient has dentist HPI Annual PE/ok HPI Details 68 -year-old lady with osteoporosis, history of Graves disease s/p radiation tx now with hypothyroidism, hyperparathyroidism followed by endocrine clinic, has hemochromatosis 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 She is due for her screening mammogram and bone density scan, last mammogram was on 03/09/23, and last bone density scan done 08/04/22 which showed osteoporosis in her lumbar spine and normal bone density in left femoral neck and left femur.. Her last colon cancer screening was done by colonoscopy 05/22/22, and is due for recheck in 2031. She has been feeling well otherwise, with no complaints at present time. 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 History of Graves' disease History of breast cancer Hemochromatosis Hyperparathyroidism Hypothyroidism Vitamin D deficiency Osteoporosis Surgical History History of back surgery H/O colonoscopy Hx of cataract extraction Hx of lumpectomy Family History Sister Hemochromatosis Mother Heart problem Hypertension Type 2 diabetes mellitus Hyperlipidemia Substance use disorder Mental health disorder Daughter Type 1 diabetes mellitus Father Hyperlipidemia Hypertension Type 2 diabetes mellitus Substance use disorder Daughter Mental health disorder Social History Household Members: Children Housing: House Are you a primary nurse behavioral health care to a significant other at home: No Do you presently have visiting nurse or other home services: No Alcohol intake: current Alcohol intake frequency: a few times a month Patient Tobacco Use Status: Former Tobacco user Years Smoked: 40 yrs e-Cigarette/Vaping Use: Never Used service: No Current occupational status: employed Current occupation: [employer] Cognitive needs: No Hearing needs: No Vision needs: Yes Questionnaire PHQ-9 Over the last 2 weeks, how often have you been bothered by any of the following problems? 1. Little interest or pleasure in doing things: not at all 2. Feeling down, depressed, or hopeless: not at all 3. Trouble falling or staying asleep, or sleeping too much: several days 4. Feeling tired or having little energy: several days 5. Poor appetite or overeating: several days 6. Feeling bad about yourself - or that you are a failure or have let yourself or your family down: not at all 7. Trouble concentrating on things, such as reading the newspaper or watching television: not at all 8. Moving or speaking so slowly that other people could have noticed. Or the opposite - being so fidgety or restless that you have been moving around a lot more than usual: not at all 9. Thoughts that you would be better off or of hurting yourself in some way: not at all Total score: 3 Depression Screening Interpretation: Negative Depression Screening Done: Yes 40847 - PHQ-9 Billing: Yes Source: Developed by Drs. Reagan Mast, Zabrina Rae, Santino Laguerre and colleagues, with an educational torrie from [employer]. Thrive Questionnaire Date Thrive assessed: 06/29/24 I am a: Patient What is your living situation today?: I have a steady place to live Within the past 12 months, did the food you bought not last and you didn't have the money to get more?: Often true Within the past 12 months, did you worry whether your food would run out before you got money to buy more?: Never true Do you have trouble paying for medicines?: No Do you have trouble getting transportation to medical appointments?: No Do you have trouble paying your heating and electricity bill?: No Do you have trouble taking care of your child, family member or friend?: No Do you have trouble with day-to-day activities such as bathing, preparing meals, shopping, managing finances, etc.?: No Are you currently unemployed and looking for a job?: No Are you interested in more education?: I choose not to answer this question Please select the resources that you would like help with: Housing/Care Home Currently or been in a relationship where the following occur: No concerns reported THRIVE Score: 1 AUDIT C Alcohol Use Questionnaire (AUDIT-C) 1. How often do you have a drink containing alcohol?: Never Total Score: 0 ESCOBAR-7 AMB Questionnaire ESCOBAR-7 Date ESCOBAR - 7 assessed: 06/29/24 Feeling nervous, anxious, or on edge: 0 = Not at all Not being able to stop or control worryin = Not at all Worrying too much about different things: 1 = Several days Trouble relaxin = Several days Being so restless that it is hard to sit still: 1 = Several days Becoming easily annoyed or irritable: 0 = Not at all Feeling afraid as if something awful might happen: 1 = Several days Total ESCOBAR-7 score (0-4 normal; 5-9 mild; 10-14 moderate; 15-21 severe): 4 Source: Developed by Zabrina Sheridan Kurt Kroenke and colleagues, with an educational torrie from [employer]. ESCOBAR-7 Assessment Billing ESCOBAR-7 Assessment Tool: ESCOBAR-7 Assessment 65138 Review of Systems Const Denies excessive sweating, Denies fatigue, Denies frequent falls, Denies headache(s) and Denies malaise Eyes Details: Goes to [facility]. Denies change in vision ENT Denies change in voice, Denies dysphagia, Denies dizziness, Denies headache(s), Denies hoarseness and Denies nasal congestion Card Denies chest pain, Denies syncope, Denies irregular heart rhythm and Denies dyspnea Resp Denies cough and Denies dyspnea GI Denies abdominal pain, Denies change in bowel habits, Denies dysphagia and Denies nausea Reports no additional complaints Musc Reports as per HPI, Denies myalgias, Denies muscle cramps, Denies numbness and Denies tingling Skin/Breast Denies breast pain, Denies breast mass and Denies rash Neuro Denies dizziness, Denies syncope, Denies frequent falls, Denies headache(s), Denies numbness and Denies tingling Psych Reports no additional complaints Endo Denies cold intolerance, Denies excessive sweating, Denies fatigue and Denies heat intolerance Leif/Lymph Denies easy bruising Aller/Immun Reports no additional complaints Physical exam (Primary Care) Vital Signs: Last Vital Signs Pulse 81 06/29/24 15:49 BP 110/70 06/29/24 15:49 Pulse Ox 94 06/29/24 15:49 Oxygen Delivery Method Room Air 06/29/24 15:49 BMI result Body Mass Index 27.2 Tobacco/Smoking Status: Tobacco use Status Tobacco use date assessed 06/29/24 06/29/24 15:52 Patient Tobacco Use Status Former Tobacco user 06/29/24 15:52 e-Cigarette/Vaping Use Never Used 06/29/24 15:52 PHQ-9: PHQ-9 Score PHQ-9: Total score 3 07/01/24 01:16 Depression Screening Interpretation: Negative Thrive Assessment: Date of Thrive Assessment Date Thrive assessed 06/29/24 06/29/24 15:52 Currently or been in a relationship where the following occur: No concerns reported Advance Care Planning discussion: Completed/Scanned Who was present: Patient Forms completed: Health Care Proxy Time spent: 16-45 minutes Actual minutes spent: 16 Const General: cooperative, comfortable and no acute distress Orientation/consciousness: patient oriented x3 Limitations: no limitations HENMT Ears: hearing grossly normal bilaterally, external ears normal, TM's normal bilaterally and EAC's normal General nose exam: Normal external nose present Mouth: Normal oral and palatal mucosa present, oropharynx normal and moist mucous membranes Eyes General: appearance normal, both eyes and all related structures Neck Neck: Yes full ROM, Yes no lymphadenopathy and Yes supple Chest Breast/axilla palpation: normal palpation of the breasts and normal palpation of the axillae Resp Effort & Inspection: normal respiratory effort and able to speak in complete sentences Auscultation: clear to auscultation bilaterally Cardio Rate: regular rate Rhythm: regular rhythm Heart sounds: S1 normal heart sound present and S2 normal heart sound present GI Other: Normal bowel sounds, soft, nontender with no mass palpated General: Yes no CVA tenderness Back/Spine/Pelvis Back: no CVA tenderness and No back tenderness Skin General skin exam: no rashes or lesions noted Neuro General: patient oriented x3, gait normal, tone normal, moves all extremities, Normal light touch and pain sensation and no focal motor deficits Cognition (Neuro): normal cognition Gait exam (Neuro): Normal gait present Extrem General: Yes full ROM, Yes no joint enlargement, Yes no clubbing, cyanosis or edema, Yes no calf tenderness and Yes normal gait Psych Appearance: grossly normal and well kempt Mental Status: mental status grossly normal Speech and movement: Normal speech and movement present Affect: normal affect Attitude: cooperative Thought process: Normal thought process present Thought content: Normal thought content present Results Reviewed Results Reviewed: Name: Daja Morataya Age/Sex: 68/F : 1955 Unit#: [id number] Attend Dr: Lilian Castellon MD Re06/02/24 Status: DEP REF Location: [facility] Disch: SPEC : [id number] ELISABET: 06/02/24 STATUS: COMP REQ : [id number] RECD: 06/02/[address]: Lilian Castellon MD COMP: 06/02/24 ENTERED: 06/02/[address]: ORDERED: CBC Auto Diff Test Result Flag Reference WBC 7.6 4.8-10.8 X10*3/uL RBC 4.92 4.20-5.50 X10*6/uL HGB 14.9 12.0-16.0 g/dl HCT 43.1 37.0-47.0 % MCV 87.6 80.0-98.0 fL MCH 30.3 27.0-33.0 pg MCHC 34.6 31.0-35.0 g/dl RDW 15.1 11.0-16.0 % PLT 237 160-400 X10*3/uL MPV 9.7 9.4-12.3 fL Neut Pct Auto 56.2 45-73 % ImGran Pct Auto 0.4 0.0-0.4 % Lymp Pct Auto 28.3 20-40 % [place] Pct Auto 12.3 H 2-11 % Eos Pct Auto 2.0 0-4 % Baso Pct Auto 0.8 0-2 % NRBC Pct Auto 0.0 0.0-0.2 /100WBC ANC Neut Abs # 4.3 2.0-8.3 x10*3/uL ImGran Abs Auto 0.03 0.00-0.03 X10*3/uL Lymph Abs Auto 2.1 1.2-4.9 X10*3/uL [place] Abs Auto 0.9 0.1-1.2 X10*3/uL Eos Abs Auto 0.2 0.0-0.4 X10*3/uL Baso Abs Auto 0.1 0.0-0.2 X10*3/uL NRBC Abs Auto 0.000 0.0-0.012 X10*3/uL Name: Daja Morataya Age/Sex: 68/F : 1955 Unit#: [id number] Attend Dr: Lilian Castellon MD Re06/02/24 Status: DEP REF Location: [facility] Disch: SPEC : [id number] ELISABET: 06/02/24-1303 STATUS: COMP REQ : [id number] RECD: 06/02/24-[address]: Lilian Castellon MD COMP: 06/02/24-1417 ENTERED: 06/02/24-[address] [facility] [address]: ORDERED: IRON PROF, Ferritin Test Result Flag Reference Iron 190 H 30-160 mcg/dL TIBC 316 228-428 mcg/dL Saturation 60 H 15-50 % UIBC 126 ug/dL Ferritin 16 10-250 ng/mL Assessment and Plan Assessment & Plan (1) Annual visit for general adult medical examination with abnormal findings: Code(s): Z00.01 - Encounter for general adult medical examination with abnormal findings Plan: Will check appropriate labs. Continue regular dental visit every 6 months and regular eye exams, at least every 2 years. Take adequate calcium in diet and vitamin-D 3 at 2000 IU per cap once a day, in addition to weight-bearing exercises to help maintain good muscle tone and weight control. Instructed to do self-breast exam, and continue to get yearly mammogram, up-to-date with her bone density scan. Up-to-date with her screening colonoscopy,. She has had 2 COVID vaccines but does not want to get further boosters, does not want to get flu shot and pneumococcal vaccine (2) Hypothyroidism: Code(s): E03.9 - Hypothyroidism, unspecified Qualifiers: Hypothyroidism type: postablative Qualified Code(s): E89.0 - Postprocedural hypothyroidism Plan: Ordered TSH and free T4, currently on levothyroxine 100 mcg daily and feels fine on current dose (3) Osteoporosis: Code(s): M81.0 - Age-related osteoporosis without current pathological fracture Plan: Followed by Dr. Muniz, encouraged to continue doing regular weight-bearing exercise, continue with calcium from dietary sources and continue with taking vitamin-D 3 supplements as directed. (4) Hemochromatosis: Code(s): E83.119 - Hemochromatosis, unspecified Plan: Followed by Dr. Castellon (5) Hyperparathyroidism: Code(s): E21.3 - Hyperparathyroidism, unspecified Plan: Followed by Dr. Muniz who in turn has referred her to see Dr. Saha for surgical removal of parathyroid (6) Hyperlipidemia: Code(s): E78.5 - Hyperlipidemia, unspecified Plan: Fasting lipid panel ordered, at reinforced importance of adhering to healthy diet, and getting regular exercise (7) Advanced directives, counseling/discussion: Code(s): Z71.89 - Other specified counseling Plan: Initiated the conversation about Advanced Directives. Advanced Directives help patients prepare for current and future decisions about their medical treatment and place of care. Discussed with patient that it is a process where a patients current condition and prognosis are reviewed, their wishes for information regarding their illness are elicited, and likely medical dilemmas are presented and options discussed. Healthcare proxy form completed today. The form can be amended as needed, reviewed yearly and make changes as needed Orders: Orders Lipid Panel 08/29/24 E03.9 - Hypothyroidism, unspecified, E55.9 - Vitamin D deficiency, unspecified, E78.5 - Hyperlipidemia, unspecified, M81.0 - Age-related osteoporosis without current pathological fracture, Z00.01 - Encounter for general adult medical examination with abnormal findings Vitamin D 25-OH Total 08/29/24 E03.9 - Hypothyroidism, unspecified, E55.9 - Vitamin D deficiency, unspecified, E78.5 - Hyperlipidemia, unspecified, M81.0 - Age-related osteoporosis without current pathological fracture, Z00.01 - Encounter for general adult medical examination with abnormal findings Free T4 (Free Thyroxine) 08/29/24 E03.9 - Hypothyroidism, unspecified, E55.9 - Vitamin D deficiency, unspecified, E78.5 - Hyperlipidemia, unspecified, M81.0 - Age-related osteoporosis without current pathological fracture, Z00.01 - Encounter for general adult medical examination with abnormal findings Alanine Aminotransferase 08/29/24 E03.9 - Hypothyroidism, unspecified, E55.9 - Vitamin D deficiency, unspecified, E78.5 - Hyperlipidemia, unspecified, M81.0 - Age-related osteoporosis without current pathological fracture, Z00.01 - Encounter for general adult medical examination with abnormal findings Aspartate Amino Transferase 08/29/24 E03.9 - Hypothyroidism, unspecified, E55.9 - Vitamin D deficiency, unspecified, E78.5 - Hyperlipidemia, unspecified, M81.0 - Age-related osteoporosis without current pathological fracture, Z00.01 - Encounter for general adult medical examination with abnormal findings Thyroid Stimulating Hormone 08/29/24 E03.9 - Hypothyroidism, unspecified, E55.9 - Vitamin D deficiency, unspecified, E78.5 - Hyperlipidemia, unspecified, M81.0 - Age-related osteoporosis without current pathological fracture, Z00.01 - Encounter for general adult medical examination with abnormal findings Coding Level of Care Code Est Pt Prev Care >65y(66063) Diagnoses Annual visit for general adult medical examination with abnormal findings Z00.01 Postablative hypothyroidism E89.0 Hypothyroidism type: postablative Osteoporosis M81.0 Hemochromatosis E83.119 Hyperparathyroidism E21.3 Hyperlipidemia E78.5 Advanced directives, counseling/discussion Z71.89 Additional Codes ESCOBAR-7 Assessment Billing - ESCOBAR-7 Assessment Tool: ESCOBAR-7 Assessment 56721 ([id number]) Vital Signs *Quality* - Advance Care Planning discussion: Completed/Scanned ([id number]) Vital Signs *Quality* - Time spent: 16-45 minutes ([id number])
== END 2024-06-29 16:53 | disposition home or self-care (01) ==
PROVIDERS: PCP Internal Medicine; Visit Provider Internal Medicine
DX: Z00.00 Encounter for general adult medical examination without abnormal findings (principal); E21.3 Hyperparathyroidism, unspecified; E89.0 Postprocedural hypothyroidism; M81.0 Age-related osteoporosis without current pathological fracture; E83.119 Hemochromatosis, unspecified; E78.5 Hyperlipidemia, unspecified; Z71.89 Other specified counseling
CPT/HCPCS: 1123F; 99397; 99497

== ENCOUNTER 2024-08-18 15:06 | Outpatient (REF) | payer BC, SELFPAY ==
--- NOTE | ~2024-08-18 | MM_ITS ---
EXAMINATION: MM SCREENING DIGITAL BREAST TOMOSYNTHESIS, BILATERAL CLINICAL INFORMATION: Screening. Asymptomatic. COMPARISON: Mammography: Comparison is made with available priors TECHNIQUE: Digital breast mammography with tomosynthesis is performed in both the craniocaudal and mediolateral oblique views along with computer-aided detection (CAD). FINDINGS: There are scattered areas of fibroglandular density (ACR BI-RADS breast composition Category b). Status post left lumpectomy changes are stable. There are no significant masses, abnormal calcifications, or other abnormalities. MM/MM tomosynthesis screening BI IMPRESSION: No mammographic evidence of malignancy. ASSESSMENT: BI-RADS BI-RADS 2 - Benign Findings RECOMMENDATION: Routine annual mammography screening. 1 year F/U This examination should not preclude the clinical evaluation of a suspicious palpable abnormality. This patient's information was entered into a reminder system with a target due date for their next mammogram. Electronically signed by: Michelle Bermeo DO 08/31/2024 08:37 AM EDT
== END 2024-08-18 15:07 | disposition home or self-care (01) ==
LOC: HO.MAMMO 15:06
PROVIDERS: PCP Internal Medicine; Visit Provider Internal Medicine Medical Oncology
DX: Z12.31 Encounter for screening mammogram for malignant neoplasm of breast (principal)
CPT/HCPCS: 77063; 77067

== ENCOUNTER → 2024-08-18 15:15 | Outpatient (BNV) | payer BC, SELFPAY | PROVIDERS: PCP Internal Medicine; Visit Provider Internal Medicine | DX: Z12.31 Encounter for screening mammogram for malignant neoplasm of breast (principal) | CPT/HCPCS: 77063; 77067 ==

== ENCOUNTER 2024-09-08 11:52 | Outpatient (REF) | payer BC, SELFPAY | END 2024-09-08 11:53 | disposition home or self-care (01) | LOC: HO.BBR 11:52 | PROVIDERS: PCP Internal Medicine; Visit Provider Internal Medicine Medical Oncology | DX: Z13.89 Encounter for screening for other disorder (principal) ==

== ENCOUNTER 2024-09-12 12:29 | Outpatient (REF) | payer BC, SELFPAY ==
[2024-09-12 14:32] LABS: Alanine Aminotransferase 15 U/L (0-31); Aspartate Amino Transferase 21 U/L (5-31); Cholesterol 232 mg/dL (<200); HDL Cholesterol 76 mg/dL (>40); LDL Cholesterol Calculated 131 mg/dL (<100); Triglycerides 129 mg/dL (<150)
[2024-09-12 14:33] LABS: Free T4 (Free Thyroxine) 1.06 ng/dL (0.71-1.85); Thyroid Stimulating Hormone 21.78 uIU/mL (0.32-4.0); Vitamin D 25-OH Total 45.3 ng/mL (>30)
== END 2024-09-12 12:30 | disposition home or self-care (01) ==
LOC: HO.LAB 12:29
PROVIDERS: PCP Internal Medicine; Visit Provider Internal Medicine
DX: Z00.01 Encounter for general adult medical examination with abnormal findings (principal); M81.0 Age-related osteoporosis without current pathological fracture; E55.9 Vitamin D deficiency, unspecified; E03.9 Hypothyroidism, unspecified; E78.5 Hyperlipidemia, unspecified
CPT/HCPCS: 36415; 80061; 82306; 84439; 84443; 84450; 84460

== ENCOUNTER 2024-09-15 11:05 | Outpatient (AMB) | payer BC, SELFPAY ==
--- NOTE | 2024-09-15 11:02 | A.OFFPC_ITS ---
Intake Visit Reasons: Follow up labs/Do not move Intake Note: Pt is having a telehealth visit to f/u lab Allergies erythromycin base Allergy (Intermediate, Verified 09/15/24 11:39) Rash Sulfa (Sulfonamide Antibiotics) Allergy (Intermediate, Verified 09/15/24 11:39) rash pseudoephedrine [From Sudafed] Allergy (Unknown, Verified 09/15/24 11:39) Unknown Medication List - Last Reconciled 09/15/24 by Cecy Perez MD [id number] 325 mg-12.5 mcg -2.75 mg (Citracal-D3 Maximum Plus) 1 tab PO DAILY 30 days cetirizine 10 mg PO DAILY PRN cholecalciferol (vitamin D3) 50 mcg PO DAILY 30 days levothyroxine 100 mcg PO DAILY Tobacco use date assessed: 09/15/24 Fall risk assessment: No Falls in past year Last assessed Fall Risk: 09/15/24 Dental Screening Dental Screen Date: 09/15/24 Did you have a dental visit in the last 12 months?: Yes Did you have a dental problem in the last 6 months where you did not have access to dental care?: No Was dental information given to patient?: Patient has dentist HPI Follow up labs/Do not move HPI Details 69 year-old lady with osteoporosis, hist ory of Graves disease s/p radiation tx now with hypothyroidism, hyperparathyroidism followed by endocrine clinic, has hemochromatosis, 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 Her lipid levels have improved, with diet and exercise. Currently not on any statin. She was recently found to have a left upper lobe lung nodule on a CT scan done of her neck for evaluation of hyperparathyroidism, ordered by Dr. Saha. It also showed a 7 mm soft tissue right paratracheal nodule within the common carotid in trachea that is hypodense which may reflect an enlarged parathyroid gland or parathyroid adenoma. She was referred to Dr. Guerrier from Interventional Pulmonary Medicine at [facility] for evaluation of lung mass. Patient states that she just had her biopsy done yesterday with results still pending. Continues to smoke 4-5 cigarettes a day, but has cut back in the last 2 weeks, she was placed on a 7 mg nicotine patch to help her quit smoking. Patient complains of feeling very stressed, given these new developments , and would like to see if she can get a prescription for something to help her with the acute anxiety attacks , to take only as needed. [facility] Medical History (Updated 09/16/24 @ 04:33 by Cecy Perez MD) Mass of upper lobe of left lung Anxiety in acute stress reaction Hyperlipidemia Annual visit for general adult medical examination with abnormal findings COVID-19 vaccine series completed Osteoporosis Allergic rhinitis 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 History of Graves' disease History of breast cancer Hemochromatosis Hyperparathyroidism Hypothyroidism Vitamin D deficiency Osteoporosis Surgical History History of back surgery H/O colonoscopy Hx of cataract extraction Hx of lumpectomy Family History Sister Hemochromatosis Mother Heart problem Hypertension Type 2 diabetes mellitus Hyperlipidemia Substance use disorder Mental health disorder Daughter Type 1 diabetes mellitus Father Hyperlipidemia Hypertension Type 2 diabetes mellitus Substance use disorder Daughter Mental health disorder Social History Household Members: Children Housing: House Are you a primary critical care paramedic to a significant other at home: No Do you presently have visiting nurse or other home services: No Alcohol intake: current Alcohol intake frequency: a few times a month Patient Tobacco Use Status: Former Tobacco user Years Smoked: 40 yrs e-Cigarette/Vaping Use: Never Used service: No Current occupational status: employed Current occupation: [employer] Cognitive needs: No Hearing needs: No Vision needs: Yes Questionnaire Thrive Questionnaire Date Thrive assessed: 06/29/24 ESCOBAR-7 AMB Questionnaire ESCOBAR-7 Date ESCOBAR - 7 assessed: 09/15/24 Feeling nervous, anxious, or on edge: 1 = Several days Not being able to stop or control worryin = Several days Worrying too much about different things: 1 = Several days Trouble relaxin = Not at all Being so restless that it is hard to sit still: 0 = Not at all Becoming easily annoyed or irritable: 0 = Not at all Feeling afraid as if something awful might happen: 1 = Several days Total ESCOBAR-7 score (0-4 normal; 5-9 mild; 10-14 moderate; 15-21 severe): 4 Source: Developed by Drs. Reagan Mast, Zabrina Rae, Santino Laguerre and colleagues, with an educational torrie from [employer]. ESCOBAR-7 Assessment Billing ESCOBAR-7 Assessment Tool: ESCOBAR-7 Assessment 52975 Review of Systems Const Reports no additional complaints, Denies headache(s), Denies lethargy, Denies malaise, Denies poor appetite and Denies weight loss ENT Denies headache(s) Card Denies chest pain, Denies chest pain with activity, Denies irregular heart rhythm, Denies lightheadedness, Denies dyspnea and Denies dyspnea on exertion Resp Denies chest congestion, Denies cough, Denies hemoptysis, Denies pain on ins piration, Denies dyspnea, Denies dyspnea on exertion and Denies wheezing GI Reports no additional complaints Musc Reports no additional complaints Neuro Denies headache(s) Psych Reports as per HPI Aller/Immun Denies wheezing Physical exam (Primary Care) Tobacco/Smoking Status: Tobacco use Status Tobacco use date assessed 09/15/24 09/15/24 11:03 Patient Tobacco Use Status Former Tobacco user 09/15/24 11:03 e-Cigarette/Vaping Use Never Used 09/15/24 11:03 Thrive Assessment: Date of Thrive Assessment Date Thrive assessed 06/29/24 09/15/24 11:03 Telehealth Telehealth Telehealth Platform: [facility] Location of provider rendering services: practice address Location of patient: address on file Patient Identification confirmed using: Name, : Yes Telehealth method: video Patient verbally consented to treatment: Yes Patient verbally consented to billing insurance company: Yes Patient informed of any privacy concerns related to visit: Yes Minutes spent on Phone/Video with Pt.: 15 Results Reviewed Results Reviewed: Name: Daja Morataya Age/Sex: 69/F : 1955 Unit#: [id number] Attend Dr: Cecy Perez MD Re09/12/24 Status: DEP REF Location: .LAB Disch: SPEC : [id number] ELISABET: 09/12/24-9 STATUS: COMP REQ : [id number] RECD: 09/12/[address] [facility] [address]: Cecy Perez MD COMP: 09/12/243 ENTERED: 09/12/[address] [facility] [address]: ORDERED: AST, ALT, Lipid Panel, Vitamin D 25-OH, Free T4, TSH Test Result Flag Reference AST (GOT) 21 5-31 U/L ALT (GPT) 15 0-31 U/L Triglyceride 129 <150 mg/dL Desirable Triglyceride: less than 150 mg/dL Borderline High Triglyceride 150-199 mg/dL High Triglyceride: 200-499 mg/dL Very High Triglyceride: greater than or equal to 5OO mg/dL Cholesterol 232 H <200 mg/dL Desirable Cholesterol: less than 200 mg/dL Borderline High Cholesterol: 200-239 mg/dL High Cholesterol: greater than 239 mg/dL LDL Calculated 131 H <100 mg/dL Desirable LDL: less than 100 mg/dL Near Optimal/Above Optimal LDL: 110-129 mg/dL Borderline High LDL: 130-159 mg/dL High LDL: 160-189 mg/dL Very High LDL: greater than or equal to 190 mg/dL HDL 76 >40 mg/dL Desirable HDL: greater than 40 mg/dL Note: This HDL assay may give artificially low results in patients with liver disease. Vit D 25-OH Tot 45.3 >30 ng/mL Health Based Reference Values* < 20 ng/mL Deficient 20-30 ng/mL Insufficient > 30 ng/mL Sufficient *Alcon ORTEGA. N Engl J Med. 2007;357:266-280 Care must be taken in interpreting Vitamin D results from different laboratories and methodologies. Published data demonstrated that results from patients undergoing hemodialysis may show a negative bias when tested with various automated 25-OH vitamin D assays when compared to LC-MS/MS. When testing samples from patients whose predominant form of Vitamin D is Vitamin D2, such as patients receiving Vitamin D2 supplementation, results that are subtherapeutic should be confirmed with another method such as LC-MS/MS. Free T4 1.06 0.71-1.85 ng/dL TSH 3rd Gen. 21.78 H 0.32-4.0 uIU/mL Note: A sustained TSH level above 2.5 uIU/mL may warrant further investigation. TSH 3rd Generation ([facility]) Coding Level of Care Code Tele Est Pt Level 4 (92072) Complex EM visit Add On G2211 Diagnoses Anxiety in acute stress reaction F41.1; F43.0 Pure hypercholesterolemia E78.00 Hyperlipidemia type: pure hypercholesterolemia Mass of upper lobe of left lung R91.8 Additional Codes ESCOBAR-7 Assessment Billing - ESCOBAR-7 Assessment Tool: ESCOBAR-7 Assessment 57094 ([id number]) Assessment & Plan Assessment & Plan (1) Anxiety in acute stress reaction: Code(s): F41.1 - Generalized anxiety disorder; F43.0 - Acute stress reaction Category: Medical Plan: Patient was given a prescription for short course of lorazepam 0.5 mg to take 1 tablet once a day only as needed for acute anxiety attacks. Recommended referral for therapy but patient declined. States that she has a very good support system with her family and friends. (2) Hyperlipidemia: Code(s): E78.5 - Hyperlipidemia, unspecified Category: Medical Qualifiers: Hyperlipidemia type: pure hypercholesterolemia Qualified Code(s): E78.00 - Pure hypercholesterolemia, unspecified Plan: Reviewed recent fasting lipid levels with patient which showed improvement in her LDL cholesterol. Continue with adhering to healthy eating habits and regular exercise. (3) Mass of upper lobe of left lung: Code(s): R91.8 - Other nonspecific abnormal finding of lung field Category: Medical Plan: Had biopsy of the left upper lobe mass done at [facility] with results still pending. She is also being followed by Dr. Christin Burnett, Thoracic surgeon at [facility], who ordered pulmonary function testing to evaluate whether or not she has enough lung capacity to tolerate lung surgery if the biopsy shows cancer Medications: New lorazepam 0.5 mg PO DAILY PRN 20 tabs 0RF Acute anxiety attacks
== END 2024-09-15 12:00 | disposition home or self-care (01) ==
LOC: HO.HMCC 11:05
PROVIDERS: PCP Internal Medicine; Visit Provider Internal Medicine
DX: E78.00 Pure hypercholesterolemia, unspecified (principal); F41.1 Generalized anxiety disorder; F43.0 Acute stress reaction; R91.8 Other nonspecific abnormal finding of lung field

== ENCOUNTER → 2024-09-15 11:05 | Outpatient (BNVA) | payer BC, SELFPAY | PROVIDERS: PCP Internal Medicine; Visit Provider Internal Medicine | DX: F41.1 Generalized anxiety disorder (principal); F43.0 Acute stress reaction; E78.00 Pure hypercholesterolemia, unspecified; R91.8 Other nonspecific abnormal finding of lung field | CPT/HCPCS: 96127 ==

== ENCOUNTER 2024-12-15 08:01 | Outpatient (AMB) | payer BC, SELFPAY ==
[2024-12-15 08:03] VITALS: BP 100/70; PULSE 84; TEMP 36.2; O2SAT 97; BMI 26.5
--- NOTE | 2024-12-15 08:03 | AM.OFFWIN_ITS ---
Intake Vital Signs 12/15/24 08:03 Height 5 ft 2 in Weight 145 lb BMI 26.5 BP 100/70 Blood Pressure Location Lt brachial Position Sitting Pulse 84 Pulse Source Pulse Oximeter Temp 97.2 F Temp Source Oral Pulse Oximetry (%) 97 Oxygen Delivery Method Room Air Intake Visit Reasons: EP RT ear blockage Intake Note: Pt is here today c/o Rt ear blocked Patient Tobacco Use Status: Former Tobacco user Allergies erythromycin base Allergy (Intermediate, Verified 12/15/24 08:03) Rash Sulfa (Sulfonamide Antibiotics) Allergy (Intermediate, Verified 12/15/24 08:03) rash pseudoephedrine [From Sudafed] Allergy (Unknown, Verified 12/15/24 08:03) Unknown HPI HPI Comments History of Present Illness Details History of Present Illness The patient is a 69-year-old female presenting with hearing loss and ear congestion. - She reports a two-week history of righ t ear blockage, with some reduction in hearing. Previous interventions with Debrox ear drops exacerbated the issue. - There is no pain noted, only decreased auditory ability on the right side. - Recent respiratory symptoms due to a r esolved COVID-19 infection, causing congestion and a productive cough. - The patient had a lung lobectomy withi n the last few months then got Covid and has had some congestion since then. Physical Exam General: Cooperative, healthy appearing, comfortable, no acute distress and well developed Orientation: Patient oriented x3 Limitations: No limitations Head: Normal to inspection Ears: External ears normal, TM right blockage with cerumen, TM left some cerumen with effusion noted Nose: Normal external nose present Face and sinus: Normal facial exam Eyes: Appearance normal, both eyes and all related structures Neck: Normal visual inspection and Yes full ROM Respiratory: Normal respiratory effort and able to speak in complete sentences. Skin: No rashes or lesions noted Neuro: Patient oriented x3 Extremities: Normal to inspection COUNT INCLUDES THE [facility] Medical History (Updated 12/15/24 @ 08:29 by Coco Stockton PA-C) Adenocarcinoma of upper lobe of left lung Anxiety in acute stress reaction Hyperlipidemia Annual visit for general adult medical examination with abnormal findings COVID-19 vaccine series completed Osteoporosis Allergic rhinitis 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 History of Graves' disease History of breast cancer Hemochromatosis Hyperparathyroidism Hypothyroidism Vitamin D deficiency Osteoporosis Surgical History History of back surgery H/O colonoscopy Hx of cataract extraction Hx of lumpectomy Family History Sister Hemochromatosis Mother Heart problem Hypertension Type 2 diabetes mellitus Hyperlipidemia Substance use disorder Mental health disorder Daughter Type 1 diabetes mellitus Father Hyperlipidemia Hypertension Type 2 diabetes mellitus Substance use disorder Daughter Mental health disorder Social History Household Members: Children Housing: House Are you a primary career technical education teacher to a significant other at home: No Do you presently have visiting nurse or other home services: No Alcohol intake: current Alcohol intake frequency: a few times a month Patient Tobacco Use Status: Former Tobacco user Years Smoked: 40 yrs e-Cigarette/Vaping Use: Never Used service: No Current occupational status: employed Current occupation: [employer] Cognitive needs: No Hearing needs: No Vision needs: Yes Review of Systems Const All systems reviewed & are unremarkable except as noted in HPI and below Physical Exam Vital Signs: Last Vital Signs Temp 97.2 F 12/15/24 08:03 Pulse 84 12/15/24 08:03 BP 100/70 12/15/24 08:03 Pulse Ox 97 12/15/24 08:03 Oxygen Delivery Method Room Air 12/15/24 08:03 BMI result Body Mass Index 26.5 Office Procedures Cerumen Removal From which ear canal was the cerumen removed: bilateral Removal: irrigation Notes: patient tolerated procedure well, no complications and ear canal clear [id number] Irrigation/Lavage Assessment & Plan Assessment & Plan (1) Bilateral impacted cerumen: Code(s): H61.23 - Impacted cerumen, bilateral Plan: I plan to have the patient's ears flushed to address the impacted cerumen in the right ear and inspect both ears post-procedure to assess for infections. The consideration of Flonase usage will also be reviewed once further clarity is achieved following ear irrigation. Understanding her recent COVID-19 infection and resultant congestion, supportive care will be provided, though further evaluation may be required should these symptoms persist. Bilateral ears cleared with flushing. Patient was informed and verbally consented to the use of an ambient scribe for clinic note documentation during this visit. Coding Level of Care Code Est Pt Level 4 (05445) Diagnoses Bilateral impacted cerumen H61.23 CPT Codes Office Procedure - CPT: 52367-Axu Irrigation/Lavage ([id number])
== END 2024-12-15 09:18 | disposition home or self-care (01) ==
PROVIDERS: PCP Internal Medicine; Visit Provider Physician Assistant
DX: H61.23 Impacted cerumen, bilateral (principal)

== ENCOUNTER → 2024-12-15 08:01 | Outpatient (BNVA) | payer BC, SELFPAY | PROVIDERS: PCP Internal Medicine; Visit Provider Physician Assistant | DX: H61.23 Impacted cerumen, bilateral (principal) | CPT/HCPCS: 69209 ==

== ENCOUNTER 2024-12-20 12:52 | Outpatient (REF) | payer BC, SELFPAY ==
--- OUTSIDE RECORDS SUMMARY | 2024-12-20 14:43 | XMS_ITS ---
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 [address] [place] [address] 02/21/2024 Mojgan Arora Plan Of Treatment Next Appt Details Provider Name:Mojgan samuel, 07/20/2025 10:00:00 AM, [address] [place] [address], [address], [place], [address], Progress Notes * EVI MORALESINEDOB:1954 (69 yo F)Acc No.[id number]:02/21/2024 PROGRESS NOTES Patient:?DAYRON MORALES Appointment Provider:?Mojgan samuel M.D. :1955???Age:68 Y???Sex:Female D ate:02/21/2024 Address:[address] [place], [place] [id number] Pcp:ENRRIQUE FAN MD Subjective: * Chief Complaints: * ???1. 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 * Medical History:? Objective: * Vitals:? Assessment: Plan: * Treatment: * Images: Billing Information: * Visit Code:? * Procedure Codes:? * Electronic signature of Mitch Arora MD on 12/20/2024 at 02:43 PM EST Sign off status: Pending * Appointment Provider:?Mojgan Arora M.D. Date:?02/21/2024 Generated for Owen guevara/Colleen/Jeff on:?12/20/2024 02:43 PM EST
--- OUTSIDE RECORDS SUMMARY | 2024-12-20 14:43 | XMS_ITS ---
Author Organization [employer] [facility] Address [address] [place] [address] [place] [address] Care Team Providers Care Artificial Limb Fitter Name Role Phone MENG BAILON, ENRRIQUE Primary Care Provider Mojgan Willson Unavailable [phone] Allergies Allergen (clinical drug ingredient) Drug/Non Drug Allergy documented on EMR Reaction Allergy Type Onset Date Status sulfamethoxazole / trimethoprim Bactrim Unknown Drug Allergy Active erythromycin Erythromycin Unknown Drug Allergy A ctive Results Component Value Reference Range Notes Urinalysis Reviewed date:07/13/2024 03:33:19 PM Interpretation: Performing Lab: Notes/Report: PH 5.0 PROTEIN Neg GLUCOSE Neg BLOOD Trace REASON FOR VISIT Annual TRANSITIONAL NURSE Physical, Annual TRANSITIONAL NURSE Physical 60-85+ Medications Medication SIG (Take, Route, Frequency, Duration) Notes Start Date End Date Status Vitamin D3 50 MCG (1999) 1 capsule Or ally Once a day for 30 day(s) Active Levothyroxine Sodium 112 MCG 1 tablet on an empty stomach in the morning Orally Once a day for 30 day(s) Active Calcium 1 tab Oral for 14 days Active Cetirizine HCl 10 MG 1 tablet Orally Onc e a day Active Social History Tobacco Use: Social History Observation Description Date Details (start date - stop date) Former Smoker NA - NA Sexual History Question Answer Notes Had sex in the past 12 months (vaginal, oral, or anal)? No AUDIT-C (Standard) Question Answer Notes Did you have a drink containing alcohol in the p ast year? No Points 0 Interpretation Negative Tobacco Control (Standard) Question Answer Notes Tobacco use: Former smoker Vital Signs Temperature 98.1 degrees Fahrenheit 07/13/20 24 Blood pressure systolic 98 mm Hg 07/13/20 24 Blood pressure diastolic 64 mm Hg 024 Height 5 ft 1.5 in in 07/13/2024 Weight 146 lbs 07/13/2024 BMI 27.14 kg/m2 07/13/2024 Encounters Encounter Location Date Provider Diagnosis Total [address] [place] [address] 07/13/2024 Mojgan Arora Encounter for gynecological examination (general) (routine) without abnormal findings Z01.419 ; Encounter for screening mammogram for malignant neoplasm of breast Z12.31 ; Personal history of malignant neoplasm of breast Z85.3 ; Age-related osteoporosis without current pathological fracture M81.0 and Postmenopausal atrophic vaginitis N95.2 Assessments Encounter Date Diagnosis (ICD Code) Assessment Notes Treatment Notes Treatment Clinical Notes Section Notes 07/13/2024 Encounter for gynecological examination (general) (routine) without abnormal findings (ICD-10 - Z01.419) NO PAP TEST DUE IN 2025. 07/13/2024 Encounter for screening mammogram for malignant neoplasm of breast (ICD-10 - Z12.31) REGULAR MAMMOGRAMS AND SBE'S WERE RECOMMENDED. 07/13/2024 Personal history of malignant neoplasm of breast (ICD-10 - Z85.3) CONTINUE FOLLOW UP WITH DR DE LUNA. 07/13/2024 Age-related osteoporosis without current pathological fracture (ICD-10 - M81.0) DISCUSSED HER LAST BMD AND ITX IMPLICATIONS. ADEQUATE CALCIUM AND VIT D. WEIGHT BEARING EXERCISES. OSTEO PRECAUTIONS. 07/13/2024 Postmenopausal atrophic vaginitis (ICD-10 - N95.2) DISCUSSED FINDINGS, DX AND TX OPTIONS. PAT IS ASYMPTOMATIC. Plan Of Treatment Treatment Notes Assessment Notes Encounter for gynecological examination (general) (routine) without abnormal findings NO PAP TEST DUE IN 2025. Encounter for screening mamm ogram for malignant neoplasm of breast REGULAR MAMMOGRAMS AND SBE'S WERE RECOMMENDED. Personal history of malignan t neoplasm of breast CONTINUE FOLLOW UP WITH DR DE LUNA. Age-related osteoporosis wit hout current pathological fracture DISCUSSED HER LAST BMD AND ITX IMPLICATIONS. ADEQUATE CALCIUM AND VIT D. WEIGHT BEARING EXERCISES. OSTEO PRECAUTIONS. Postmenopausal atrophic vaginitis DISCUSSED FINDINGS, DX AND TX OPTIONS. PAT IS ASYMPTOMATIC. Pending Test Test Name Order Date MAMMOGRAM, SCREENING 07/13/2024 BONE DENSITY 07/13/2024 MM Digital Mammo Screening 07/13/2024 Next Appt Details Follow Up: 1 Year, Reason: Provider Name:Mojgan Dianna iVto samuel, 07/20/2025 10:00:00 AM, [address], [address], [place], [address], Progress Notes * EVI MORALESINEDOB:1954 (68 yo F)Acc No.[id number]:07/13/2024 PROGRESS NOTES Patient:?DAYRON MORALES Appointment Provider:?Mojgan samuel M.D. :1955???Age:68 Y???Sex:Female D ate:07/13/2024 Address:[address] [place], [place] [id number] Pcp:ENRRIQUE FAN MD Subjective: * Chief Complaints: * ???Annual TRANSITIONAL NURSE PhysicalAnnual TRANSITIONAL NURSE Physical 60-85+ * HPI: ???New/Follow-up Patient Consult:? PAT ENTERED MENOPAUSE IN 2003.? SHE IS AND NOT SEXUALLY ACTIVE. S/P LEFT LUMPECTOMY FOR DCIS IN 1996 AT [facility].? SHE IS FOLLOWED BY DR DE LUNA AND HAS BEEN DOING WELL. SHE HAD C/O INCOMPLETE BLADDER EMPTYING IN 2020 AND WAS SEEN BY DR QUIROZ.? WORK UP WAS NORMAL. SHE WAS FOUND TO BE OSTEOPOROTIC IN 2019 WITH T-SCORE OF -2.8 AT [facility] AND HER LAW OFFICE MANAGER STARTED HER ON FOSAMAX.? SHE WAS ADVISED TO DISCONTINUE THIS RECENTLY.? SHE HAS HYPER PARATHYROIDISM AND IS SCHEDULED FOR PARATHYROIDECTOMY TO DONE BY DR SARGENT. HER LAST MAMMOGRAM DONE IN FEBRUARY 2023 SHOWED BREASTS ARE NOT DENSE AND LEFT BREAST ULTRASOUND SHOWED NORMAL FINDINGS. HER LAST PAP TEST IN 2022 WAS NEGATIVE AND HPV NEGATIVE. HER LAST BMD IN 2019 SHOWED THE LOWEST T-SCORE WAS -2.8.? SHE WAS STARTED ON FOSAMAX? BY DR MITTAL.? DR MARIN HAS REPLACED DR MITTAL AND HE RECOMMENDED THE PAT CONSIDER PARATHYROIDECTOMY.? SHE IS IN THE PROCESS OF SETTING THIS UP. SHE HAD A COLONOSCOPY DONE IN 2015. MODERNA X 5. ???Annual:? Patient presents for annual exam, ages 60-85, postmenopausal. ?General Health Maintenance:?Current breast complaints:?no breast pain, mass, discharge, or skin changes ?Urinary problems:?patient reports no urinary health problems or bowel health problems ?Calcium intake:?takes adequate calcium via diet and supplementation ?Significant TRANSITIONAL NURSE problems:?no significant vessel ordinary seaman symptoms or problems * ROS:?general:?no?chest pain.?no?palpitations.?no?headache.?no?cough.?no?shortness of breath.?no?fever.?no?unexplained weight loss.?no?nausea/vomiting.?no?change in bowel movements.?no blood in stool.?no?genitourinary complaints.?no?skin complaints.? * Medical History:? * Gin Operator History:?/ Para?3/3.?Sexual activity?not currently sexually active.?Last Pap Smear:?02/15/23 NIL, NEG HPV, 03/04/19 NIL, NEG HPV, 2011 ? neg.?Mammogram:?03/26/23 [place], 12/2021, 12/2019, 11/05/2018.?Abnormal Pap Smear:?no history of abnormal pap smears.?LMP and menses?2004, menopause.?Colonoscopy?yes Colonoscopy.?Bone Density:?08/04/22 (No Report) 01/09/202015.? * OB History:?Total pregnancies?3.?Total living children?3.? * Surgical History:?Lumpectomy 1997Liver Biopsy 1998Back Surgery 2004Bilateral cataract 2019Colonoscopy * Hospitalization/Major Diagno stic Procedure:?3 Vaginal Deliveries See Surgical Hx * Family History:?Mother: dece ased.?Father: .?Paternal Grand Mother: breast cancer.? * Social History:?Tobacco Use:?Tobacco Control (Standard)?Tobacco use:?Former smoker ???Sexual History:?Sexual History?Had sex in the past 12 months (vaginal, oral, or anal)??No ?Details of Sexual History?Are you sexually active??No ???Drugs/Alcohol:?Drugs?Have you used drugs other than those for medical reasons in the past 12 months??No ???Miscellaneous:?Children: yes, 3. ?Exercise: yes, walking. ?Home smoke detector use: yes. ?Marital status: . ?Natural support system: yes. 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 ?Sexually active: no. ???Drug/Alcohol:?AUDIT-C (Standard)?Did you have a drink containing alcohol in the past year??No ?Points?0 ?Interpretation?Negative * Medications:?TakingCetirizin e HCl 10 MG Tablet 1 tablet Orally Once a day Calcium 1 tab Oral Vitamin D3 50 MCG (2000 UT) Capsule 1 capsule Orally Once a day Levothyroxine Sodium 112 MCG Tablet 1 tablet on an empty stomach in the morning Orally Once a day Taking Cetirizine HCl 10 MG Tablet 1 tablet Orally Once a day Taking Calcium 1 tab Oral Taking Vitamin D3 50 MCG (2000 UT) Capsule 1 capsule Orally Once a day Taking Levothyroxine Sodium 112 MCG Tablet 1 tablet on an empty stomach in the morning Orally Once a day DiscontinuedAlendronate Sodium 70 MG Tablet 1 tablet 30 minutes before the first food, beverage or medicine of the day with plain water Orally Medication List reviewed and reconciled with the patientDiscontinued Alendronate Sodium 70 MG Tablet 1 tablet 30 minutes before the first food, beverage or medicine of the day with plain water Orally Medication List reviewed and reconciled with the patient * Allergies:?Bactrim: AllergyE rythromycin: Allergyno[Allergies Verified] Objective: * Vitals:?Ht: 5 ft 1.5 in, Wt: 146 lbs, BMI:27.14Index, BP: 98/64 mm Hg, Temp: 98.1 F. * Examination: ???General Exam: ?CONSTITUTIONAL:?NECK/THYROID:?RESPIRATORY:?Auscultation: clear to auscultation bilaterally, Respiratory Effort: normal.?CARDIOVASCULAR:?Auscultation: regular rate and rhythm.?BREAST, Right:?BREAST, Left:?GASTROINTESTINAL:?MUSCULOSKELETAL:?SKIN:?NEURO/PSYCH:?Genitourinary: ?EXTERNAL GENITALIA:?VAGINA:?BLADDER:?URETHRA:?CERVIX:?UTERUS:?ADNEXA:?ANUS AND PERINEUM:? Assessment: * Assessment: 1.?Encounter for gynecologic al examination (general) (routine) without abnormal findings - Z01.419???2.?Encounter for screening mammogram for malignant neoplasm of breast - Z12.31???3.?Personal history of malignant neoplasm of breast - Z85.3?? 4.?Age-related osteoporosis without current pathological fracture - M81.0???5.?Postmenopausal atrophic vaginitis - N95.2??? Plan: * Treatment: ? Value Reference Range ?PH 5.0 * ?PROTEIN Neg * ?GLUCOSE Neg * ?BLOOD Trace * D.LUIZ 07/13/2024 03:06:09 PM EDT > Notes: NO PAP TEST DUE IN 2025.??2.?Encounter for screening mammogram for malignant neoplasm of breast?Imaging: MM Digital Mammo Screening Notes: REGULAR MAMMOGRAMS AND SBE'S WERE RECOMMENDED.??3.?Personal history of malignant neoplasm of breast? Notes: CONTINUE FOLLOW UP WITH DR DE LUNA.??4.?Age-related osteoporosis without current pathological fracture?Imaging: BONE DENSITY Notes: DISCUSSED HER LAST BMD AND ITX IMPLICATIONS. ADEQUATE CALCIUM AND VIT D. WEIGHT BEARING EXERCISES. OSTEO PRECAUTIONS.??5.?Postmenopausal atrophic vaginitis? Notes: DISCUSSED FINDINGS, DX AND TX OPTIONS. PAT IS ASYMPTOMATIC.?? * Imaging:? * ?Imaging: MAMMOGRAM, SCR EENING * Procedure Codes:? * Preventive Medicine:? ??YOUR PREVENTIVE WELLNESS PLAN:?Osteoporosis prevention?Calcium, D, strength training.?Breast Cancer Screening (Mammogram):?annually.?Cervical Cancer Screening (Pap Smear):?q 3 years with HPV screen.?Colorectal Cancer Screening:?q 10 years.? * Follow Up:?1 Year * Images: Billing Information: * Visit Code:? 36185 Preventive Care Est Pt. Age 65 and over. * Procedure Codes:? * Sign off status: Completed true * Appointment Provider:?Mojgan Arora M.D. Date:?07/13/2024 Generated for Owen guevara/Colleen/eTransmitting on:?12/20/2024 02:43 PM EST History and Physical Notes * HPI (History of Present Illness) Category Sub-Category Detail Notes Category Not es New/Follow-up Patient Consult PAT ENTERED MENOPAUSE IN 2003. SHE IS AND NOT SEXUALLY ACTIVE. S/P LEFT LUMPECTOMY FOR DCIS IN 1996 AT [facility]. SHE IS FOLLOWED BY DR DE LUNA AND HAS BEEN DOING WELL. SHE HAD C/O INCOMPLETE BLADDER EMPTYING IN 2020 AND WAS SEEN BY DR QUIROZ. WORK UP WAS NORMAL. SHE WAS FOUND TO BE OSTEOPOROTIC IN 2019 WITH T-SCORE [facility] -2.8 [facility] AND HER LAW OFFICE MANAGER STARTED HER ON FOSAMAX. SHE WAS ADVISED TO DISCONTINUE THIS RECENTLY. SHE HAS HYPER PARATHYROIDISM AND IS SCHEDULED FOR PARATHYROIDECTOMY TO DONE BY DR SARGENT. HER LAST MAMMOGRAM DONE IN FEBRUARY 2023 SHOWED BREASTS ARE NOT DENSE AND LEFT BREAST ULTRASOUND SHOWED NORMAL FINDINGS. HER LAST PAP TEST IN 2022 WAS NEGATIVE AND HPV NEGATIVE. HER LAST BMD IN 2019 SHOWED THE LOWEST T-SCORE WAS -2.8. SHE WAS STARTED ON FOSAMAX BY DR MITTAL. DR MARIN HAS REPLACED DR MITTAL AND HE RECOMMENDED THE PAT CONSIDER PARATHYROIDECTOMY. SHE IS IN THE PROCESS OF SETTING THIS UP. SHE HAD A COLONOSCOPY DONE IN 2014. MODERNA X 5. Annual General Health Maintenance: Current breast complaints:: no breast pain, mass, discharge, or skin changes Urinary problems:: patient r eports no urinary health problems or bowel health problems Calcium intake:: takes adequ ate calcium via diet and supplementation Significant TRANSITIONAL NURSE problems:: n o significant vessel ordinary seaman symptoms or problems Examination Category Sub-Category Detail Notes Category Not es General Exam CONSTITUTIONAL: General Appearan ce:: alert, in no acute distress, normal, well nourished NECK/THYROID: Thyroid:: normal size and shape Inspection/Palpation:: normal RESPIRATORY: Auscultation: clear to auscultation bilaterally, Respiratory Effort: normal CARDIOVASCULAR: Auscultation: regula r rate and rhythm GASTROINTESTINAL: Hernias:: no hernias present, no inguinal adenopathy Liver and Spleen:: normal Abdomen:: no masses, nontender, nondiste nded MUSCULOSKELETAL: Inspection/Palpation:: no clubb ing, cyanosis, or edema SKIN: Skin:: normal NEURO/PSYCH: Mood/Affect:: normal Orientation:: time , place, person BREAST, Right: Inspection/Palpation :: no discharge, no masses present, no nipple retraction, no skin changes, no skin dimpling, no tenderness, no lymphadenopathy, no axillary mass, no axillary tenderness BREAST, Left: Inspection/Palpation :: no discharge, no masses present, no nipple retraction, no skin changes, no skin dimpling, no tenderness, no lymphadenopathy, no axillary mass, no axillary tenderness Genitourinary EXTERNAL GENITALIA: External Genitalia:: nor mal, no lesions VAGINA: Vagina:: atrophic vaginal tissue , minimal moisture BLADDER: Bladder:: no mass, nontender URETHRA: Urethra:: no erythema or lesions present CERVIX: Cervix:: no lesions, nontender UTERUS: Uterus:: nontender, normal conto ur, normal mobility, normal size ADNEXA: Adnexa:: no masses, no tendernes s ANUS AND PERINEUM: Anus/Perineum:: visually norm al
--- OUTSIDE RECORDS SUMMARY | 2024-12-20 14:43 | XMS_ITS | Patient Health Record ---
Author Organization [facility] Address [address] [place] [address] Care Team Providers Care Chandelier Maker Name Role Phone Ana BAILON, Cecy Primary [...] for 1 day 01/26/2022 Active Vitamin D3 25217 UNIT Orally Active Levothyroxine Sodium 112 MCG [...] Problem Colon cancer screening (Z12.11) Active confirmed 908135400 Problem Encounter for other preprocedural examination (Z01.818) Active confirmed 317635432 PLAN OF TREATMENT Future Test Test Name Order Date COLONOSCOPY 04/05/2015 COLONOSCOPY 01/26/2022 Insurance Providers Payer Name Payer Address Payer Phone Subscriber Number Group Number Insured Name Patient Relationship to Insured Coverage Start Date Coverage End Date [facility] [address] [place], [place] [id number] DAYRON ARCE Self - patient is the insured MEDICAL (GENERAL) HISTORY Medical History History ICD Code Colonoscopy 05/14, five-year followup for her personal history of colon polyps Hypothyroidism Hemochromatosis Osteoporosis Surgical History Surgery Date(Month/Year) back surgery breast cancer status-post lumpectomy and radiation therapy in 1996
--- OUTSIDE RECORDS SUMMARY | 2024-12-20 14:43 | XMS_ITS | Patient Health Record ---
Author Organization [email or web address] [facility] Address [address] [place] [address] Care Team Providers Care Automatic Centrifugal Station Operator Name Role Phone ENRRIQUE FAN MD Primary Care Provider Mojgan Willson [phone] Allergies Allergen (clinical drug ingredient) Drug/Non Drug Allergy documented on EMR Reaction Allergy Type Onset Date Status sulfamethoxazole / trimethoprim Bactrim Unknown Drug Allergy Active erythromycin Erythromycin Unknown Drug Allergy A ctive Results Component Value Reference Range Notes Urinalysis Reviewed date:07/13/2024 03:33:19 PM Interpretation: Performing Lab: Notes/Report: PH 5.0 PROTEIN Neg GLUCOSE Neg BLOOD Trace Reason For Referral No Information Medications Medication SIG (Take, Route, Frequency, Duration) [...] Question Answer Notes Tobacco use: Former smoker Problems Problem Type SNOMED Code ICD Code Onset Dates Problem Status W/U Status Risk Notes Problem Postmenopausal atrophic vaginitis (07096684) Postmenopausal atrophic vaginitis (N95.2) Active confirmed Problem Age-related osteoporosis (695123112) Age-related osteoporosis without current pathological fracture (M81.0) Active confirmed Problem Hypothyroidism (54206491) Hypothyroidism, unspecified (E03.9) Active confirmed Problem 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 Problem Hemochromatosis (684905566) Other hemochromatosis (E83.118) Active confirmed Problem Chronic interstitial cystitis (746829926) Interstitial cystitis (chronic) without hematuria (N30.10) Active confirmed Problem Personal history of primary malignant neoplasm of breast (812780629) Personal history of malignant neoplasm of breast (Z85.3) Active confirmed Problem History of carcinoma in situ of breast (59888034556315718 ) Personal history of in-situ neoplasm of breast (Z86.000) Active confirmed Vital Signs Temperature 98.1 degrees Fahrenheit 07/13/2024 Blood pressure diastolic 64 mm Hg 07/13/2024 Height 5 ft 1.5 in in 07/13/2024 Blood pressure systolic 98 mm Hg 07/13/2024 Weight 146 lbs 07/13/2024 BMI 27.14 kg/m2 07/13/2024 Encounters Encounter Location Date Provider Diagnosis [address] [address] 07/13/2024 Mojgan Arora Encounter for gynecological examination [...] OPTIONS. PAT IS ASYMPTOMATIC. Plan Of Treatment Pending Test Test Name Order Date MAMMOGRAM, SCREENING 03/10/2021 MAMMOGRAM, SCREENING 02/15/2023 MAMMOGRAM, SCREENING 07/13/2024 Urinalysis 03/10/2021 Urinalysis 01/14/2021 Urinalysis 03/14/2019 THIN PREP,HPV,RUCHI IF HPV+ (>29YR)(DIAG) 03/14/2019 BONE DENSITY 03/14/2019 BONE DENSITY 02/15/2023 BONE DENSITY 07/13/2024 MM Digital Mammo Screening 07/13/2024 MM Digital Mammo Screening 03/14/2019 MM Digital Mammo Screening 03/10/2021 MM Digital Mammo Screening 02/15/2023 Next Appt Details Provider Name:Mojgan Padron jimmie, 07/20/2025 10:00:00 AM, [address], [address], [place], [address], Insurance Providers Payer Name Payer Address Payer Phone Subscriber Number Group Number Insured Name Patient Relationship to Insured Coverage Start Date Coverage End Date [employer] [address] [place] [address] [id number] DAYRON MORALES Self - patient is the insured Medical (General) History Medical History History ICD Code Postmenopausal atrophic vaginitis N95.2 Personal history of in-situ neoplasm of breast Z86.000 Inconclusive mammogram R92.2 Interstitial cystitis (chronic) without hematuria N30.10 Age-related osteoporosis without current pathological fracture M81.0 Other hemochromatosis E83.118 Hypothyroidism, unspecified E03.9 Intraductal carcinoma in situ of left br east D05.12 Surgical History Surgery Date(Month/Year) Lumpectomy 1996 Liver Biopsy 1997 Back Surgery 2003 Bilateral cataract 2018 Colonoscopy Hospitalization History Reason Date(Month/Year) See Surgical Hx 3 Vaginal Deliveries
--- OUTSIDE RECORDS SUMMARY | 2024-12-20 14:43 | XMS_ITS | Data Portability ---
Author Organization PRAKASH Dheeraj Kaufman [facility], [facility] Address [address] [place] [address] Assessment Encounter Date Assessment Date Assessment LastModified by Organization Details LastModified Time 04/27/2024 04/27/2024 ICD-10: Right severe congenital hallux valgus, valgus lesser toe deformities, metatarsus adductus, midfoot arthritis CHIEF COMPLAINT: Right foot pain HISTORY OF PRESENT ILLNESS: Daja is a 68-year-old woman who I am seeing today in follow-up with regard to chronic progressively worsening right forefoot deformity. She has had a bunion since she was a child. She saw Dr. Lamonte Allen in 2010 and surgery was discussed at that time although she was not ready to go through with surgery at that time. Her deformities have worsened since then. I last saw her in May 2022 and we discussed surgery at that time. She localizes pain to her bunion/medial eminence and less so her second and third toes. Her third toe impinges against her fourth toe. She denies any midfoot pain or tenderness. Her pain level is 2/10 and she develops a painful callus over the dorsomedial aspect of her first metatarsal head. She has tried orthotics, shoe wear modification and medications. She has to wear accommodative sneakers. She would like to schedule surgery in the near future. She may need to have her parathyroids removed in the near future and will be seeing an endocrine surgeon to discuss this. 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 She has been diagnosed with osteoporosis and started on alendronate. She has hypothyroidism. Past family, medical, social history and review of systems has been reviewed, updated and signed by me and is located in the patient? s chart. She has hemochromatosis. PHYSICAL EXAM: General: 5'2 , 145 lbs, healthy appearing, in no acute distress Psych: alert and oriented x3, normal mood Skin: intact without ulceration or lesion, normal turgor Lungs: respirations unlabored Cardiac: heart rate regular, normal peripheral pulses Musculoskeletal: On standing exam, she has a broad forefoot with severe hallux valgus and severe left second and third valgus MTP deformities (windswept foot). There are no PIP deformities. She has no TMT instability or tenderness. There is tenderness over the second metatarsal head both dorsally and plantarly. Her hallux valgus deformity is not fully passively correctable. There is stiffness with sagittal plane range of motion. There is no sesamoid tenderness. She is distally neurovascularly intact. X-RAYS: Three standing views of the right foot were ordered, obtained and reviewed by me today at [facility], demonstrating severe incongruent hallux valgus deformity with hallux valgus angle of 63 degrees and MOUSTAPHA of 12 degrees. There is metatarsus adductus and midfoot arthritis especially of the second TMT joint. There are severe second and third MTP valgus deformities/latera l subluxations. She has a bipartite tibial sesamoid. IMPRESSION: Right severe congenital hallux valgus, valgus lesser toe deformities, metatarsus adductus, midfoot arthritis PLAN: I discussed these findings with Daja. Her metatarsus adductus makes this a challenging deformity to correct. In the absence of any midfoot pain, I am hesitant to recommend a Lapidus procedure and lateral closing wedge second and third TMT arthrodeses. Given her severe congenital deformity and pain predominantly over the bunion, I have recommended a hallux MTP fusion with plate-screw construct, calcaneal autograft, second and third metatarsal shortening (Umesh) osteotomies with lateral translation of the second and third metatarsal heads via the osteotomies, second and third MTP angular correction with medial collateral ligament repair/imbrication and pinning across the MTP joints. It is possible that she will require second and third metatarsal head resections to correct her deformities but I am hesitant to do so. She will be able to heel weightbear in a postop shoe or CAM boot following surgery. Her K wires will remain in place for 5-6 weeks and she will not be able to get back into a sneaker for at least 6 weeks. She will be out of work for at least 6 weeks. All questions were answered. Risks include, but are not limited to, wound healing problems, deep infection, nerve/vessel injury, nonunion, malunion, symptomatic hardware, persistent pain, need for further surgery. The expected postoperative course was outlined in detail. The patient understands the nature and magnitude of this surgery and wishes to proceed. All questions were answered. The patient is ambulatory, but has weakness and/or instability of their extremity which requires stabilization from this semi-rigid/rigid orthosis to improve their function. Verbal and written instructions for the use and application of this item were given. Patient was instructed that should the brace result in increased pain, decreased sensation, increased swelling or an overall worsening of their medical condition, to please contact our office immediately. [email or web address] Not available 04/27/2024 14:39:03 Plan of Treatment Reminders Order Date Submit Date Provider Last Modified By Organization Details Last Modified Time Details Appointments None recorded. Lab None recorded. Referral None recorded. Procedures None recorded. Surgeries hallux valgus correction (SURG) 2023 024 [email or web address] Not available 4 15:40:08 Imaging XR, foot, 3 or more view - RM 107-- new 3V FOOT WB, 2V ANKLE WB 2023 024 [email or web address] Not available 4 14:43:25 XR, ankle, 2 view 2023 024 [email or web address] Not available 4 14:43:26 Medication Orders None recorded. Patient TargetsNo targets recorded. Patient InstructionsNo instructions recorded. Reason for Referral None Reported. Medical Equipment None Reported. Allergies Allergen ID Allergen Name Allergen Category Reaction Reaction Severity Criticality Documentation Date Start Date Code Code System Note Provider Name and Address Organization Details Recorded Time 96120 erythromy amy medicatio n Not available Not available Not available 01/31/20242021 4053 RxNorm Not Available [facility] 4 10:54:00 81753 Bactrim medicatio n Not available Not available Not available 01/31/20242021 31349 9 RxNorm Not Available [facility] 4 10:54:00 43816 Substance with sulfonami de structure and antibacte rial mechanism of action (substanc e) medicatio n Not available Not available Not available 01/31/20242021 62778 8003 SNOMED Not Available [facility] 10:54:00 Medications Name Sig Start Date Stop Date Status Note LastModified by Organization Details LastModified Time amoxicillin 500 mg capsule TAKE 1 CAPSULE BY MOUTH TWICE DAILY FOR 7 DAYS active Not Available Not Available No t Available cetirizine 10 mg tablet TAKE 1 TABLET BY MOUTH DAILY NEEDED FOR ALLERGY SYMPTOMS active Not Available Not Available No t Available alendronate 70 mg tablet TAKE 1 TABLET BY MOUTH ONCE A WEEK active Not Available Not Available No t Available levothyroxine 100 mcg tablet TAKE 1 TABLET BY MOUTH DAILY active Not Available Not Available No t Available cholecalcifero l (vitamin D3) 50 mcg (2,000 unit) capsule TAKE 1 CAPSULE BY MOUTH EVERY DAY active Not Available Not Available No t Available Vitals Date Recorded Body height Body mass index (BMI) Body weight Provider Name and Address Organization Details Last Updated DateTime 04/27/2024 157.48 cm 26.5 kg/m2 64436.89 g JUNO Bustamante [facility] 04/27/2024 14:19:13 Social History None recorded. Functional Status None recorded. Mental Status None recorded. Family History Nothing Reported. Medical History No medical history recorded. Gynecological HistoryNo gynecological history recorded. Obstetrics History GPAL:G 0 P 0 0 0 0 Past Encounters Encounter ID Performer Location Encounter Start Date Encounter Closed Date Diagnosis/Indication Diagnosis SNOMED-CT Code Diagnosis ICD10 Code Diagnosis Note [id number] MD Marlene Armstrong [address] [place] [address] 04/27/2024 13:43:28 05/17/2024 09:27:05 Foot pain 24541163 M79.671 Acquired h allux rigidus 7157121 M20.20 M20.21 Acquired r ight hallux valgus 3280063754 36194 M20.11 Overriding toes 41872560 3 M20.5X9 Health Concerns Section Related Observation LastModified by Organization Detai ls LastModified Time None Recorded Concern Status LastModified by Organization Details LastModified Time None Recorded Advance Directives Directive None Recorded Payers Encounter Date Sequence Insurance Name Policy Number Policy Saravia Covered Member ID Saravia Member ID Guarantor Name 04/27/2024 1 [facility] [employer]GRAM [id number] Daja Morataya [id number] Daja Morataya OBGyn Episode No OBEpisode recorded.
== END 2024-12-20 12:53 | disposition home or self-care (01) ==
LOC: HO.BBR 12:52
PROVIDERS: PCP Internal Medicine; Visit Provider Internal Medicine Medical Oncology
DX: Z13.89 Encounter for screening for other disorder (principal)

== ENCOUNTER 2025-02-09 09:31 | Outpatient (AMB) | payer BC, SELFPAY ==
--- NOTE | 2025-02-09 09:40 | AM.OFFWIN_ITS ---
Intake Vital Signs 02/09/25 09:42 Height 5 ft 2 in Weight 142 lb BMI 26.0 BP 124/80 Blood Pressure Location Lt brachial Position Sitting Pulse 84 Pulse Source Pulse Oximeter Temp 97.8 F Temp Source Oral Pulse Oximetry (%) 98 Oxygen Delivery Method Room Air Intake Visit Reasons: EP Sinus congestion Intake Note: Patient here for sinus pressure, teeth pain since Wednesday. Patient Tobacco Use Status: Former Tobacco user Allergies erythromycin base Allergy (Intermediate, Verified 02/09/25 09:42) Rash Sulfa (Sulfonamide Antibiotics) Allergy (Intermediate, Verified 02/09/25 09:42) rash pseudoephedrine [From Sudafed] Allergy (Unknown, Verified 02/09/25 09:42) Unknown Do you need a note to return to daycare/school/sports/work: No HPI HPI Comments History of Present Illness Details This is a 69-year-old female who presented to the walk-in clinic complaining of sinus pain/pressure, sinus/nasal congestion, and rhinorrhea x 4 days. Patient states she is prone to frequent sinus infections and typically requires antibiotics. Patient states she has been using an ybtr-pok-xsokjal sinus medication although can not remember what this was called. She denies any fevers or chills. She also feels as though her ears are blocked/muffled. 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 History of Graves' disease History of breast cancer Hemochromatosis Hyperparathyroidism Hypothyroidism Vitamin D deficiency Osteoporosis Surgical History History of back surgery H/O colonoscopy Hx of cataract extraction Hx of lumpectomy Family History Sister Hemochromatosis Mother Heart problem Hypertension Type 2 diabetes mellitus Hyperlipidemia Substance use disorder Mental health disorder Daughter Type 1 diabetes mellitus Father Hyperlipidemia Hypertension Type 2 diabetes mellitus Substance use disorder Daughter Mental health disorder Social History Household Members: Children Housing: House Are you a primary daycare provider to a significant other at home: No Do you presently have visiting nurse or other home services: No Alcohol intake: current Alcohol intake frequency: a few times a month Patient Tobacco Use Status: Former Tobacco user Years Smoked: 40 yrs e-Cigarette/Vaping Use: Never Used service: No Current occupational status: employed Current occupation: [employer] Cognitive needs: No Hearing needs: No Vision needs: Yes Review of Systems Const All systems reviewed & are unremarkable except as noted in HPI and below Reports no additional complaints Eyes Reports no additional complaints ENT Reports no additional complaints Card Reports no additional complaints Resp Reports no additional complaints GI Reports no additional complaints Reports no additional complaints Musc Reports no additional complaints Skin/Breast Reports system reviewed and no additional complaints, except as documented Neuro Reports no additional complaints Psych Reports no additional complaints Endo Reports no additional complaints Leif/Lymph Reports no additional complaints Aller/Immun Reports no additional complaints Physical Exam Vital Signs: Last Vital Signs Temp 97.8 F 02/09/25 09:42 Pulse 84 02/09/25 09:42 BP 124/80 02/09/25 09:42 Pulse Ox 98 02/09/25 09:42 Oxygen Delivery Method Room Air 02/09/25 09:42 BMI result Body Mass Index 26.0 Const Other: Vital signs reviewed. Constitutional: Non-toxic appearing. No acute distress. Well-developed and well-nourished. HEENT: Normocephalic and atraumatic. Tympanic membranes without erythema, edema, or bulging bilaterally although there is fluid/effusion present behind both TMs. External auditory canals without erythema or edema bilaterally. Moist mucous membranes. No pharyngeal erythema or exudates.+ Frontal and maxillary sinus tenderness to palpation. Skin: Warm and dry. No rashes or lesions noted. Neck: Full and painless range of motion. No cervical lymphadenopathy. Cardio: Regular rate. No lower extremity edema. No JVD. Pulmonary: No respiratory distress. No accessory muscle usage. Gastrointestinal: Soft, nontender, and nondistended in all 4 quadrants. Musculoskeletal: Normal range of motion in joints throughout the body. No deformity or other signs of injury. Neuro: Alert and oriented x4. Cranial nerves 2-12 grossly intact. No focal deficits appreciated. Psych: Normal mood and affect. Assessment & Plan Assessment & Plan (1) Acute rhinosinusitis: Code(s): J01.90 - Acute sinusitis, unspecified Plan This is a 69-year-old female who presented to the walk-in clinic complaining of sinus pain/pressure, sinus/nasal congestion, and rhinorrhea x 4 days. On physical examination, there is fluid/effusion behind bilateral tympanic membranes without erythema or bulging bilateral tympanic membranes. Additionally, she has frontal and maxillary sinus tenderness to palpation. Given patient's history of frequent sinus infections, she was given a prescription for p.o. amoxicillin 500 mg twice daily x7 days. I also recommended utilizing biag-nnp-sopqmzo fluticasone nasal spray to help with inflammation. Patient advised to follow-up here for persistent or worsening symptoms. Patient verbalized her understanding and she is in agreement with the plan. Medications: New amoxicillin 500 mg PO BID 14 tabs 0RF Coding Level of Care Code Est Pt Level 3 (49439) Diagnoses Acute rhinosinusitis J01.90
[2025-02-09 09:42] VITALS: BP 124/80; PULSE 84; TEMP 36.6; O2SAT 98; BMI 26.0
--- OUTSIDE RECORDS SUMMARY | 2025-02-09 10:24 | XMS_ITS ---
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 :1955???Age:68 Y???Sex:Female D ate:02/21/2024 Address:[address] [place], [place] [id number] Pcp:ENRRIQUE FAN MD Subjective: * Chief Complaints: * ???1. 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 * Medical History:? Objective: * Vitals:? Assessment: Plan: * Treatment: * Images: Billing Information: * Visit Code:? * Procedure Codes:? * Electronic signature of Mitch Arora MD on 02/09/2025 at 10:24 AM EDT Sign off status: Pending * Appointment Provider:?Mojgan Arora M.D. Date:?02/21/2024 Generated for Owen guevara/Colleen/Jeff on:?02/09/2025 10:24 AM EDT
--- OUTSIDE RECORDS SUMMARY | 2025-02-09 10:25 | XMS_ITS | Patient Health Record ---
Author Organization [facility] Address [address] [place] [address] Care Team Providers Care Wet End Helper Name Role Phone Ana BAILON, Cecy Primary Care Provider Baldemar Lopez Jr Unavailable Allergies Allergen (clinical drug ingredient) Drug/Non Drug Allergy documented on EMR Reaction Allergy Type Onset Date Status Sulfa Unknown Drug Allergy Active erythromycin Erythromycin Unknown Drug Allergy A ctive Bactrim Unknown Drug Allergy Active Reason For Referral No Information Medications Medication SIG (Take, Route, Frequency, Duration) Notes Start Date End Date Status MiraLax (colon prep) 17 GM/SCOOP mixed with Gatorade or Crystal Light Orally begin at 5:00 p.m. the day before the procedure for 1 day 01/26/2022 Active Vitamin D3 94745 UNIT Orally Active Levothyroxine Sodium 112 MCG TK 1 T PO QD Orally Active Shannan Allergy 180 MG 1 tablet Swallow whole with water; do not take with fruit juices. Orally Once a day for 30 day(s) Active traZODone HCl 100 MG 1 tablet at bedtime Orally Once a day for 30 day(s) Active Immunizations Vaccine Route Administration Date Status Comme nts Influenza Unknown 10/15/2021 Administered Social History Tobacco Use: Social History Observation Description Date Details (start date - stop date) Never Smoker NA - NA Tobacco Use/Smoking Question Answer Notes Patient is a nonsmoker Problems Problem Type SNOMED Code ICD Code Onset Dates Problem Status W/U Status Risk Notes Problem 809172851 Colon cancer screening (Z12.11) Active confirmed Problem 910497751 Encounter for other preprocedural examination (Z01.818) Active confirmed Plan Of Treatment Future Test Test Name Order Date COLONOSCOPY 04/05/2015 COLONOSCOPY 01/26/2022 Insurance Providers Payer Name Payer Address Payer Phone Subscriber Number Group Number Insured Name Patient Relationship to Insured Coverage Start Date Coverage End Date [facility] [address] [place], [place] [id number] DAYRON ARCE Self - patient is the insured Medical (General) History Medical History History ICD Code Colonoscopy 05/14, five-year followup for her personal history of colon polyps Hypothyroidism Hemochromatosis Osteoporosis Surgical History Surgery Date(Month/Year) back surgery breast cancer status-post lumpectomy and radiation therapy in 1996
--- OUTSIDE RECORDS SUMMARY | 2025-02-09 10:25 | XMS_ITS | Patient Health Record ---
Author Organization [facility] Address [address] [facility] [address] [place] [address] Care Team Providers Care Lacrosse Player Name Role Phone ENRRIQUE FAN MD Primary Care Provider Mojgan Willson Unavailable [phone] Allergies Allergen (clinical drug ingredient) Drug/Non Drug Allergy documented on EMR Reaction Allergy Type Onset Date Status Bactrim Unknown Drug Allergy Active erythromycin Erythromycin [...] Status Risk Notes Problem Postmenopausal atrophic vaginitis (28891123) Postmenopausal atrophic vaginitis (N95.2) Active confirmed Problem Age-related osteoporosis (412200464) Age-related osteoporosis without current pathological fracture (M81.0) Active confirmed Problem Hypothyroidism (07990803) Hypothyroidism, unspecified (E03.9) Active confirmed Problem Intraductal carcinoma in situ of left breast (8773547675852409) 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 Problem Hemochromatosis (974808483) Other hemochromatosis (E83.118) Active confirmed Problem Chronic interstitial cystitis (366229970) Interstitial cystitis (chronic) without hematuria (N30.10) Active confirmed Problem Personal history of primary malignant neoplasm of breast (847652951) Personal history of malignant neoplasm of breast (Z85.3) Active confirmed Problem History of carcinoma in situ of breast (69932844568384325 ) Personal history of in-situ neoplasm of breast (Z86.000) Active confirmed Vital Signs Temperature 98.1 degrees Fahrenheit 07/13/2024 Blood pressure diastolic 64 mm Hg 07/13/2024 Height 5 ft 1.5 in in 07/13/2024 Blood pressure systolic 98 mm Hg 07/13/2024 Weight 146 lbs 07/13/2024 BMI 27.14 kg/m2 07/13/2024 Encounters Encounter Location Date Provider Diagnosis [address] [address] 07/13/2024 Mojgan Arora Encounter for gynecological examination [...] Name:Mojgan Padron jimmie, 07/20/2025 10:00:00 AM, [address] [facility], [address], [place], [address], Insurance Providers Payer Name Payer Address Payer Phone Subscriber Number Group Number Insured Name Patient Relationship to Insured Coverage Start Date Coverage End Date [employer] [place] [address] [place] [address] [phone] [id number] DAYRON MORALES Self - patient is the [...]
--- OUTSIDE RECORDS SUMMARY | 2025-02-09 10:25 | XMS_ITS ---
Author Organization [facility] Address [address] [place] [address] Care Team Providers Care Seafood And Service Meat Manager Name Role Phone MENG BAILON, ENRRIQUE Primary Care Provider Mojgan Willson Unavailable [phone] Allergies Allergen (clinical drug ingredient) Drug/Non Drug Allergy documented on EMR Reaction Allergy Type Onset Date Status Bactrim Unknown Drug Allergy Active erythromycin Erythromycin Unknown Drug Allergy A ctive Results Component Value Reference Range Notes Urinalysis Reviewed date:07/13/2024 03:33:19 PM Interpretation: Performing Lab: Notes/Report: PH 5.0 PROTEIN Neg GLUCOSE Neg BLOOD Trace REASON FOR VISIT Annual PEANUT PICKER Physical, Annual PEANUT PICKER Physical 60-85+ Medications Medication SIG (Take, Route, [...] Notes Tobacco use: Former smoker Vital Signs Height 5 ft 1.5 in in 07/13/2024 Weight 146 lbs 07/13/2024 BMI 27.14 kg/m2 07/13/2024 Blood pressure systolic 98 mm Hg 07/13/20 24 Blood pressure diastolic 64 mm Hg 024 Temperature 98.1 degrees Fahrenheit 07/13/20 24 Encounters Encounter Location Date Provider Diagnosis Total [address] [place] [address] 07/13/2024 Mojgan Arora Encounter for gynecological examination [...] Follow Up: 1 Year, Reason: Provider Name:Mojgan Bustamante Vito samuel, 07/20/2025 10:00:00 AM, [address], [address], [place], [address], Progress Notes * EVI MORALESINEDOB:1954 (68 yo F)Acc No.[id number]:07/13/2024 PROGRESS NOTES Patient:?DAYRON MORALES Appointment Provider:?Mojgan samuel M.D. :1955???Age:68 Y???Sex:Female D ate:07/13/2024 Address:[address] [place], [place] [id number] Pcp:ENRRIQUE FAN MD Subjective: * Chief Complaints: * ???Annual PEANUT PICKER PhysicalAnnual PEANUT PICKER Physical 60-85+ * HPI: ???New/Follow-up Patient Consult:? PAT ENTERED MENOPAUSE IN 2003.? SHE IS AND NOT SEXUALLY ACTIVE. S/P LEFT LUMPECTOMY FOR DCIS IN 1996 AT [facility].? SHE IS FOLLOWED BY DR DE LUNA AND HAS BEEN DOING WELL. SHE HAD C/O INCOMPLETE BLADDER EMPTYING IN 2020 AND WAS SEEN BY DR QUIROZ.? WORK UP WAS NORMAL. SHE WAS FOUND TO BE OSTEOPOROTIC IN 2019 WITH T-SCORE OF -2.8 AT [facility] AND HER BAKERY SUPERVISOR STARTED HER ON FOSAMAX.? SHE WAS ADVISED [...] COLONOSCOPY DONE IN 2014. MODERNA X 5. ???Annual:? Patient presents for annual exam, ages 60-85, postmenopausal. ?General Health Maintenance:?Current breast complaints:?no breast pain, mass, discharge, or skin changes ?Urinary problems:?patient reports no urinary health problems or bowel health problems ?Calcium intake:?takes adequate calcium via diet and supplementation ?Significant PEANUT PICKER problems:?no significant honey producer symptoms or problems * ROS:?general:?no?chest pain.?no?palpitations.?no?headache.?no?cough.?no?shortness of breath.?no?fever.?no?unexplained weight loss.?no?nausea/vomiting.?no?change in bowel movements.?no blood in stool.?no?genitourinary complaints.?no?skin complaints.? * Medical History:? * Feather Sawyer History:?/ Para?3/3.?Sexual activity?not currently sexually active.?Last Pap Smear:?02/15/23 NIL, NEG HPV, 03/04/19 NIL, NEG HPV, 2011 ? neg.?Mammogram:?03/26/23 [place], 12/2021, 12/2019, 11/05/2018.?Abnormal Pap Smear:?no history of [...] . ?Natural support system: yes. 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 ?Sexually active: no. ???Drug/Alcohol:?AUDIT-C (Standard)?Did you have [...] Temp: 98.1 F. * Examination: ???General Exam: ?CONSTITUTIONAL:?General Appearance:?alert, in no acute distress, normal, well nourished ?NECK/THYROID:?Inspection/Palpation:?normal ?Thyroid:?normal size and shape ?RESPIRATORY:?Auscultation: clear to auscultation bilaterally, Respiratory Effort: normal.?CARDIOVASCULAR:?Auscultation: regular rate and rhythm.?BREAST, Right:?Inspection/Palpation:?no discharge, no masses present, no nipple retraction, no skin changes, no skin dimpling, no tenderness, no lymphadenopathy, no axillary mass, no axillary tenderness ?BREAST, Left:?Inspection/Palpation:?no discharge, no masses present, no nipple retraction, no skin changes, no skin dimpling, no tenderness, no lymphadenopathy, no axillary mass, no axillary tenderness ?GASTROINTESTINAL:?Abdomen:?no masses, nontender, nondistended ?Liver and Spleen:?normal ?Hernias:?no hernias present, no inguinal adenopathy ?MUSCULOSKELETAL:?Inspection/Palpation:?no clubbing, cyanosis, or edema ?SKIN:?Skin:?normal ?NEURO/PSYCH:?Orientation:?time , place, person ?Mood/Affect:?normal?Genitourinary: ?EXTERNAL GENITALIA:?External Genitalia:?normal, no lesions ?VAGINA:?Vagina:?atrophic vaginal tissue, minimal moisture ?BLADDER:?Bladder:?no mass, nontender ?URETHRA:?Urethra:?no erythema or lesions present ?CERVIX:?Cervix:?no lesions, nontender ?UTERUS:?Uterus:?nontender, normal contour, normal mobility, normal size ?ADNEXA:?Adnexa:?no masses, no tenderness ?ANUS AND PERINEUM:?Anus/Perineum:?visually normal??? Assessment: * Assessment: 1.?Encounter for gynecologic al [...] * ?GLUCOSE Neg * ?BLOOD Trace * DLUIZ Lerner 07/13/2024 03:06:09 PM EDT > Notes: NO [...] * Images: Billing Information: * Visit Code:? 74161 Preventive Care Est Pt. Age 65 and over. * Procedure Codes:? * Sign off status: Completed true * Appointment Provider:?Mojgan Arora M.D. Date:?07/13/2024 Generated for Owen guevara/Colleen/Rdsmitting on:?02/09/2025 10:24 AM EDT History and Physical Notes * HPI (History of Present Illness) Category Sub-Category Detail Notes Category Not es New/Follow-up Patient Consult PAT ENTERED MENOPAUSE IN 2003. SHE IS AND NOT SEXUALLY ACTIVE. S/P LEFT LUMPECTOMY FOR DCIS IN 1996 AT [facility]. SHE IS FOLLOWED BY DR DE LUNA AND HAS BEEN DOING WELL. SHE HAD C/O INCOMPLETE BLADDER EMPTYING IN 2020 AND WAS SEEN BY DR QUIROZ. WORK UP WAS NORMAL. SHE WAS FOUND TO BE OSTEOPOROTIC IN 2019 WITH T-SCORE OF -2.8 AT [facility] AND HER BAKERY SUPERVISOR STARTED HER ON FOSAMAX. SHE WAS ADVISED [...] or skin changes Urinary problems:: patient r epomiles no urinary health problems or bowel health problems Calcium intake:: takes adequ ate calcium via diet and supplementation Significant PEANUT PICKER problems:: n o significant honey producer symptoms or problems Examination Category Sub-Category Detail Notes Category Not es General Exam CONSTITUTIONAL: General Appearan ce:: alert, in no acute distress, normal, well nourished NECK/THYROID: Inspection/Palpation:: normal Thyroid:: normal size and shape RESPIRATORY: Auscultation: clear to auscultation bilaterally, Respiratory Effort: normal CARDIOVASCULAR: Auscultation: regula r rate and rhythm GASTROINTESTINAL: Abdomen:: no masses, nontender , nondistended Liver and Spleen:: normal Hernias:: no hernias present, no inguina l adenopathy MUSCULOSKELETAL: Inspection/Palpation:: no clubb ing, cyanosis, or edema SKIN: Skin:: normal NEURO/PSYCH: Orientation:: time , place, pers on Mood/Affect:: normal BREAST, Right: Inspection/Palpation :: no discharge, no [...]
== END 2025-02-09 10:43 | disposition home or self-care (01) ==
PROVIDERS: PCP Internal Medicine; Visit Provider Physician Assistant Medical
DX: J01.90 Acute sinusitis, unspecified (principal)

== ENCOUNTER → 2025-02-09 09:31 | Outpatient (BNVA) | payer BC, SELFPAY | PROVIDERS: PCP Internal Medicine; Visit Provider Physician Assistant Medical ==

== ENCOUNTER 2025-03-16 14:58 | Outpatient (REF) | payer BC, SELFPAY ==
--- OUTSIDE RECORDS SUMMARY | 2025-03-16 15:06 | XMS_ITS ---
Author Organization [employer] [facility] Address [address] [place] [address] [place] [address] Care Team Providers Care Credit Front Office Developer Name Role Phone MENG BAILON, ENRRIQUE Primary Care Provider Mojgan Willson Unavailable [phone] Allergies Allergen (clinical drug ingredient) Drug/Non Drug Allergy documented on EMR Reaction Allergy Type Onset Date Status sulfamethoxazole / trimethoprim Bactrim Unknown Drug Allergy Active erythromycin Erythromycin Unknown Drug Allergy A ctive Results Component Value Reference Range Notes Urinalysis Reviewed date:07/13/2024 03:33:19 PM Interpretation: Performing Lab: Notes/Report: PH 5.0 PROTEIN Neg GLUCOSE Neg BLOOD Trace REASON FOR VISIT 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 :1955???Age:68 Y???Sex:Female D ate:07/13/2024 Address:[address] [place], [place] [id number] Pcp:ENRRIQUE FAN MD Subjective: * Chief Complaints: * ???Annual PLANT OPERATIONS VICE PRESIDENT PhysicalAnnual PLANT OPERATIONS VICE PRESIDENT Physical 60-85+ * HPI: ???New/Follow-up Patient Consult:? PAT ENTERED MENOPAUSE IN 2003.? SHE IS AND NOT SEXUALLY ACTIVE. S/P LEFT LUMPECTOMY FOR DCIS IN 1996 AT [facility].? SHE IS FOLLOWED BY DR DE LUNA AND HAS BEEN DOING WELL. SHE HAD C/O INCOMPLETE BLADDER EMPTYING IN 2020 AND WAS SEEN BY DR QUIROZ.? WORK UP WAS NORMAL. SHE WAS FOUND TO BE OSTEOPOROTIC IN 2019 WITH T-SCORE OF -2.8 AT [facility] AND HER SOLAR INSTALLER STARTED HER ON FOSAMAX.? SHE WAS ADVISED [...] adequate calcium via diet and supplementation ?Significant PLANT OPERATIONS VICE PRESIDENT problems:?no significant slicing machine operator symptoms or problems * ROS:?general:?no?chest pain.?no?palpitations.?no?headache.?no?cough.?no?shortness of breath.?no?fever.?no?unexplained weight loss.?no?nausea/vomiting.?no?change in bowel movements.?no blood in stool.?no?genitourinary complaints.?no?skin complaints.? * Medical History:? * Geophysical Party Chief History:?/ Para?3/3.?Sexual activity?not currently sexually active.?Last Pap Smear:?02/15/23 NIL, NEG HPV, 03/04/19 NIL, NEG HPV, 2011 ? neg.?Mammogram:?03/26/23 [place], 12/2021, 12/2019, 11/05/2018.?Abnormal Pap Smear:?no history of [...] . ?Natural support system: yes. 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 ?Sexually active: no. ???Drug/Alcohol:?AUDIT-C (Standard)?Did you have [...] * Images: Billing Information: * Visit Code:? 72155 Preventive Care Est Pt. Age 65 and over. * Procedure Codes:? * Sign off status: Completed true * Appointment Provider:?Mojgan Arora M.D. Date:?07/13/2024 Generated for Owen guevara/Colleen/Jensenitting on:?03/16/2025 03:06 PM EDT History and Physical Notes * HPI (History of Present Illness) Category Sub-Category Detail Notes Category Not es New/Follow-up Patient Consult PAT ENTERED MENOPAUSE IN 2003. SHE IS AND NOT SEXUALLY ACTIVE. S/P LEFT LUMPECTOMY FOR DCIS IN 1996 AT [facility]. SHE IS FOLLOWED BY DR DE LUNA AND HAS BEEN DOING WELL. SHE HAD C/O INCOMPLETE BLADDER EMPTYING IN 2020 AND WAS SEEN BY DR QUIROZ. WORK UP WAS NORMAL. SHE WAS FOUND TO BE OSTEOPOROTIC IN 2019 WITH T-SCORE OF -2.8 AT [facility] AND HER SOLAR INSTALLER STARTED HER ON FOSAMAX. SHE WAS ADVISED [...] or skin changes Urinary problems:: patient r betty no urinary health problems or bowel health problems Calcium intake:: takes adequ ate calcium via diet and supplementation Significant PLANT OPERATIONS VICE PRESIDENT problems:: n o significant slicing machine operator symptoms or problems Examination Category Sub-Category Detail [...]
--- OUTSIDE RECORDS SUMMARY | 2025-03-16 15:06 | XMS_ITS | Patient Health Record ---
Author Organization [facility] Address [address] [place] [address] Care Team Providers Care Aemt Name Role Phone Ana BAILON, Cecy Primary Care Provider Baldemar Lopez Jr Unavailable Allergies Allergen (clinical drug ingredient) Drug/Non Drug Allergy documented on EMR Reaction Allergy Type Onset Date Status Sulfa Unknown Drug Allergy Active erythromycin Erythromycin Unknown Drug Allergy A ctive sulfamethoxazole / trimethoprim Bactrim Unknown Drug Allergy Active Reason For Referral No Information Medications Medication SIG (Take, Route, Frequency, Duration) Notes Start Date End Date Status MiraLax (colon prep) 17 GM/SCOOP mixed with Gatorade or Crystal Light Orally begin at 5:00 p.m. the day before the procedure for 1 day 01/26/2022 Active Vitamin D3 99556 UNIT Orally Active Levothyroxine Sodium 112 MCG [...] Problem Status W/U Status Risk Notes Problem 629994859 Colon cancer screening (Z12.11) Active confirmed Problem 336945115 Encounter for other preprocedural examination (Z01.818) Active confirmed Plan Of Treatment Future Test Test Name Order Date COLONOSCOPY 04/05/2015 COLONOSCOPY 01/26/2022 Insurance Providers Payer Name Payer Address Payer Phone Subscriber Number Group Number Insured Name Patient Relationship to Insured Coverage Start Date Coverage End Date [facility] [address] [place], [place] [id number] DAYRON ARCE Self - patient is the insured Medical (General) History Medical History History ICD Code Colonoscopy 05/14, five-year followup for her personal history of colon polyps Hypothyroidism Hemochromatosis Osteoporosis Surgical History Surgery Date(Month/Year) back surgery breast cancer status-post lumpectomy and radiation therapy in 1996
--- OUTSIDE RECORDS SUMMARY | 2025-03-16 15:06 | XMS_ITS | Data Portability ---
Author Organization [facility] Address [address] [place] [address] Assessment Encounter Date Assessment Date Assessment LastModified [...] discuss this. 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 She has been diagnosed with [...] obtained and reviewed by me today at [facility], demonstrating severe incongruent hallux valgus deformity with [...] Surgeries hallux valgus correction (SURG) 2023 024 Not available 4 15:40:08 Imaging XR, foot, [...] Name and Address Organization Details Recorded Time 15671 erythromy amy medicatio n Not available Not available Not available 01/31/20242021 4053 RxNorm Not Available [facility] 4 10:54:00 35209 Bactrim medicatio n Not available Not available Not available 01/31/20242021 17094 9 RxNorm Not Available [facility] 4 10:54:00 09952 Substance with sulfonami de structure and antibacte rial mechanism of action (substanc e) medicatio n Not available Not available Not available 01/31/20242021 52394 8003 SNOMED Not Available [facility] 10:54:00 Medications Name Sig Start Date Stop [...] Updated DateTime 04/27/2024 157.48 cm 26.5 kg/m2 08112.89 g JUNO Bustamante [facility] 04/27/2024 14:19:13 Social History None recorded. Functional Status None recorded. Mental Status None recorded. Family History Nothing Reported. Medical History No medical history recorded. Gynecological HistoryNo gynecological history recorded. Obstetrics History GPAL:G 0 P 0 0 0 0 Past Encounters Encounter ID Performer Location Encounter Start Date Encounter Closed Date Diagnosis/Indication Diagnosis SNOMED-CT Code Diagnosis ICD10 Code Diagnosis Note [id number] MD Marlene Armstrong [address] [place] [address] 04/27/2024 13:43:28 05/17/2024 09:27:05 Foot pain 38738640 M79.671 Acquired h allux rigidus 2265268 M20.20 M20.21 Acquired r ight hallux valgus 0220918681 79234 M20.11 Overriding toes 29194144 3 M20.5X9 Health Concerns Section Related Observation LastModified by Organization Detai ls LastModified Time None Recorded Concern Status LastModified by Organization Details LastModified Time None Recorded Advance Directives Directive None Recorded Payers Encounter Date Sequence Insurance Name Policy Number Policy Saravia Covered Member ID Saravia Member ID Guarantor Name 04/27/2024 1 [facility]: [employer] [id number] Daja Morataya [id number] Daja Morataya OBGyn Episode No OBEpisode recorded.
--- OUTSIDE RECORDS SUMMARY | 2025-03-16 15:06 | XMS_ITS ---
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 :1955???Age:68 Y???Sex:Female D ate:02/21/2024 Address:[address] [place], [place] [id number] Pcp:ENRRIQUE FAN MD Subjective: * Chief Complaints: * ???1. 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 * Medical History:? Objective: * Vitals:? Assessment: Plan: * Treatment: * Images: Billing Information: * Visit Code:? * Procedure Codes:? * Electronic signature of Mitch Arora MD on 03/16/2025 at 03:05 PM EDT Sign off status: Pending * Appointment Provider:?Mojgan Arora M.D. Date:?02/21/2024 Generated for Owen guevara/Colleen/Jeff on:?03/16/2025 03:05 PM EDT
--- OUTSIDE RECORDS SUMMARY | 2025-03-16 15:07 | XMS_ITS | Patient Health Record ---
Author Organization [facility] [place] [facility] Address [address] [place] [address] Care Team Providers Care Order Booker Name Role Phone ENRRIQUE FAN MD Primary Care Provider Mojgan Willson [phone] Allergies Allergen (clinical drug ingredient) Drug/Non Drug [...] Status Risk Notes Problem Postmenopausal atrophic vaginitis (20691534) Postmenopausal atrophic vaginitis (N95.2) Active confirmed Problem Age-related osteoporosis (848178026) Age-related osteoporosis without current pathological fracture (M81.0) Active confirmed Problem Hypothyroidism (97015722) Hypothyroidism, unspecified (E03.9) Active confirmed Problem 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) 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 Problem Hemochromatosis (853424152) Other hemochromatosis (E83.118) Active confirmed Problem Chronic interstitial cystitis (732869026) Interstitial cystitis (chronic) without hematuria (N30.10) Active confirmed Problem Personal history of primary malignant neoplasm of breast (653528648) Personal history of malignant neoplasm of breast (Z85.3) Active confirmed Problem History of carcinoma in situ of breast (43801844547620246 ) Personal history of in-situ neoplasm of breast (Z86.000) Active confirmed Vital Signs Temperature 98.1 degrees Fahrenheit 07/13/2024 Blood pressure diastolic 64 mm Hg 07/13/2024 Height 5 ft 1.5 in in 07/13/2024 Blood pressure systolic 98 mm Hg 07/13/2024 Weight 146 lbs 07/13/2024 BMI 27.14 kg/m2 07/13/2024 Encounters Encounter Location Date Provider Diagnosis [address] [address] 07/13/2024 Mojgan Arora Encounter for gynecological examination [...] Name:Mojgan Padron jimmie, 07/20/2025 10:00:00 AM, [address], [address], [place], [address], Insurance Providers Payer Name Payer Address Payer Phone Subscriber Number Group Number Insured Name Patient Relationship to Insured Coverage Start Date Coverage End Date [employer] [address] [place] [address] [id number] DAYRON MORALES Self - patient is the [...]
== END 2025-03-16 14:59 | disposition home or self-care (01) ==
LOC: HO.BBR 14:58
PROVIDERS: PCP Internal Medicine; Visit Provider Internal Medicine
DX: Z13.89 Encounter for screening for other disorder (principal)

== ENCOUNTER 2025-04-20 11:51 | Outpatient (AMB) | payer BC, SELFPAY ==
--- OUTSIDE RECORDS SUMMARY | 2025-04-20 11:54 | XMS_ITS ---
Author Organization 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 :1955???Age:68 Y???Sex:Female D ate:02/21/2024 Address:[address] [place], [place] [phone] Pcp:ENRRIQUE FAN MD Subjective: * Chief Complaints: * ???1. 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 * Medical History:? Objective: * Vitals:? Assessment: Plan: * Treatment: * Images: Billing Information: * Visit Code:? * Procedure Codes:? * Electronic signature of Mitch Arora MD on 04/20/2025 at 11:53 AM EDT Sign off status: Pending * Appointment Provider:?Mojgan Arora M.D. Date:?02/21/2024 Generated for Owen guevara/Colleen/Jeff on:?04/20/2025 11:53 AM EDT
--- NOTE | 2025-04-20 13:18 | AM.OFFWIN_ITS ---
Intake Vital Signs 04/20/25 13:20 Weight 142 lb BP 120/78 Blood Pressure Location Lt brachial Position Sitting Pulse 74 Pulse Source Pulse Oximeter Temp 97.5 F Temp Source Oral Pulse Oximetry (%) 97 Oxygen Delivery Method Room Air Intake Visit Reasons: PE Sinus congestion 1+ week Intake Note: Patient here for sinus congestion, headaches and teeth pain that has been present for a couple of weeks with no improvement w/OTC meds. Patient Tobacco Use Status: Former Tobacco user Allergies erythromycin base Allergy (Intermediate, Verified 04/20/25 13:19) Rash Sulfa (Sulfonamide Antibiotics) Allergy (Intermediate, Verified 04/20/25 13:19) rash pseudoephedrine [From Sudafed] Allergy (Unknown, Verified 04/20/25 13:19) Unknown Do you need a note to return to daycare/school/sports/work: Yes HPI HPI Comments History of Present Illness Details 69 y/o Female patient who [facility] with c/o Sinus congestion, headaches and teeth/Gum pain for couple of weeks. Reports used OTC medications with no relief. She usually takes Claritin PRN. Pt has been seen here multiple times in the past and this year for Sinus pressure ?infection. She is always given Abx with some relief. Denies fevers, chills, nausea or vomiting. 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 History of Graves' disease History of breast cancer Hemochromatosis Hyperparathyroidism Hypothyroidism Vitamin D deficiency Osteoporosis Surgical History History of back surgery H/O colonoscopy Hx of cataract extraction Hx of lumpectomy Family History Sister Hemochromatosis Mother Heart problem Hypertension Type 2 diabetes mellitus Hyperlipidemia Substance use disorder Mental health disorder Daughter Type 1 diabetes mellitus Father Hyperlipidemia Hypertension Type 2 diabetes mellitus Substance use disorder Daughter Mental health disorder Social History Household Members: Children Housing: House Are you a primary day care director to a significant other at home: No Do you presently have visiting nurse or other home services: No Alcohol intake: current Alcohol intake frequency: a few times a month Patient Tobacco Use Status: Former Tobacco user Years Smoked: 40 yrs e-Cigarette/Vaping Use: Never Used service: No Current occupational status: employed Current occupation: [employer] Cognitive needs: No Hearing needs: No Vision needs: Yes Review of Systems Const All systems reviewed & are unremarkable except as noted in HPI and below Physical Exam Vital Signs: Last Vital Signs Temp 97.5 F 04/20/25 13:20 Pulse 74 04/20/25 13:20 BP 120/78 04/20/25 13:20 Pulse Ox 97 04/20/25 13:20 Oxygen Delivery Method Room Air 04/20/25 13:20 Const General: comfortable and no acute distress Nutritional Appearance: well nourished Orientation/consciousness: patient oriented x3 HEENT Head: Yes normocephalic Ears: external ears normal and TM abnormal with fluid behind the TM bilateral General nose exam: Abnormal mucous membranes and turbinates present boggy Face and sinus: Yes sinuses nontender Mouth: moist mucous membranes Resp Effort & Inspection: normal respiratory effort and able to speak in complete sentences Auscultation: clear to auscultation bilaterally, no crackles, no rales, no rhonchi and no wheezes Cardio Rhythm: regular rhythm Heart sounds: S1 normal heart sound present and S2 normal heart sound present Neuro General: patient oriented x3 Assessment & Plan Assessment & Plan (1) Allergic rhinitis: Code(s): J30.9 - Allergic rhinitis, unspecified Qualifiers: Allergic rhinitis seasonality: seasonal Allergic rhinitis trigger: pollen Qualified Code(s): J30.1 - Allergic rhinitis due to pollen Plan: Ordered Shannan BID Pt will benefit referral to ENT for further evaluation and management. Medications: New fexofenadine (Shannan Allergy) 60 mg PO BID 14 tabs 2RF 7 days J30.1 - Allergic rhinitis due to pollen fexofenadine (Shannan Allergy) 60 mg PO BID 7 days 14 tabs 0RF J30.1 - Allergic rhinitis due to pollen Discontinued cetirizine Discontinued Reason: Patient Completed Course 10 mg PO DAILY PRN 30 tabs 1RF allergy symptoms Coding Level of Care Code Est Pt Level 4 (35234) Diagnoses Seasonal allergic rhinitis due to pollen J30.1 Allergic rhinitis seasonality: seasonal Allergic rhinitis trigger: pollen Time Spent (min) 20
[2025-04-20 13:20] VITALS: BP 120/78; PULSE 74; TEMP 36.4; O2SAT 97
== END 2025-04-20 14:08 | disposition home or self-care (01) ==
PROVIDERS: PCP Internal Medicine; Visit Provider Nurse Practitioner Family
DX: J30.1 Allergic rhinitis due to pollen (principal)

== ENCOUNTER → 2025-04-20 11:51 | Outpatient (BNVA) | payer BC, SELFPAY | PROVIDERS: PCP Internal Medicine; Visit Provider Nurse Practitioner Family ==

== ENCOUNTER 2025-05-31 13:58 | Outpatient (REF) | payer BC, SELFPAY ==
--- OUTSIDE RECORDS SUMMARY | 2024-02-21 09:00 | XMS_ITS ---
Author Organization [facility] [employer] [facility] Address [address] [place] [address] [address] [place] [address] Care Team Providers Care Loom Control Chain Builder Name Role Phone MENG BAILON, ENRRIQUE Primary Care Provider Mojgan Willson Unavailable [phone] REASON FOR VISIT Annual DOPE HEATER Physical Encounters Encounter Location Date Provider Diagnosis [facility] [employer] [address] [place] [address] 02/21/2024 Mojgan Arora Plan Of Treatment Next Appt Details Provider Name:Mojgan samuel, 07/20/2025 10:00:00 AM, [address] [place] [address], [facility] [address], [place], [address], Progress Notes * EVI MORALESINEDOB:1954 (69 yo F)Acc No.[id number]:02/21/2024 PROGRESS NOTES Patient: DAYRON MORALES Appointment Provider: Sy Arora M.D. :1955 A ge:68 Y S ex:Female Date:02/21/2024 Address:[address] [place], [place] [phone] Pcp:ENRRIQUE FAN MD Subjective: * Chief Complaints: * 1 . Annual DOPE HEATER Physical. * Medical History: Objective: * Vitals: Assessment: Plan: * Treatment: * Images: Billing Information: * Visit Code: * Procedure Codes: * Electronic signature of Mitch Arora MD on 05/31/2025 at 02:01 PM EDT Sign off status: Pending * Appointment Provider: Sy Arora M.D. Date: 0 02/21/2024 Generated for Owen guevara/Colleen/Jeff on: 0 05/31/2025 02:01 PM EDT
--- OUTSIDE RECORDS SUMMARY | 2025-05-31 14:02 | XMS_ITS | Data Portability ---
Author Organization PRAKASH Dheeraj Kaufman [facility], [facility] Address [address] [place] [address] Assessment Encounter Date Assessment Date Assessment LastModified [...] discuss this. 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 She has been diagnosed with osteoporosis and started on alendronate. She has hypothyroidism. Past family, medical, social history and review of systems has been reviewed, updated and signed by me and is located in the patient s chart. She has hemochromatosis. PHYSICAL EXAM: [...] obtained and reviewed by me today at [facility], demonstrating severe incongruent hallux valgus deformity [...] Surgeries hallux valgus correction (SURG) 2023 024 [email or web address] Not available 4 15:40:08 Imaging XR, foot, [...] Name and Address Organization Details Recorded Time 09411 erythromy amy medicatio n Not available Not available Not available 01/31/20242021 4053 RxNorm Not Available [facility] 4 10:54:00 94218 Bactrim medicatio n Not available Not available Not available 01/31/20242021 10134 9 RxNorm Not Available [facility] 4 10:54:00 51002 Substance with sulfonami de structure and antibacte rial mechanism of action (substanc e) medicatio n Not available Not available Not available 01/31/20242021 43685 8003 SNOMED Not Available [facility] 10:[facility]00 Medications Name Sig Start Date Stop [...] Updated DateTime 04/27/2024 157.48 cm 26.5 kg/m2 40165.89 g JUNO EDWARDSPAULINE Bustamante [facility] 04/27/2024 14:19:13 Social History None recorded. Functional Status None recorded. Mental Status None recorded. Family History Nothing Reported. Medical History No medical history recorded. Gynecological HistoryNo gynecological history recorded. Obstetrics History GPAL:G 0 P 0 0 0 0 Past Encounters Encounter ID Performer Location Encounter Start Date Encounter Closed Date Diagnosis/Indication Diagnosis SNOMED-CT Code Diagnosis ICD10 Code Diagnosis Note [id number] MD Marlene Armstrong [address] [place] [address] 04/27/2024 13:43:28 05/17/2024 09:27:05 Foot pain 05402752 M79.671 Acquired h allux rigidus 5170010 M20.20 M20.21 Acquired r ight hallux valgus 3802278419 71635 M20.11 Overriding toes 24466184 3 M20.5X9 Health Concerns Section Related Observation LastModified by Organization Detai ls LastModified Time None Recorded Concern Status LastModified by Organization Details LastModified Time None Recorded Advance Directives Directive None Recorded Payers Insurance Date Sequence Insurance Name Policy Number Policy Saravia Covered Member ID Saravia Member ID Guarantor Name 05/18/2024 1 [facility]: [employer] EM[employer] 111 Daja Morataya [id number] Daja Morataya OBGyn Episode No OBEpisode recorded.
--- OUTSIDE RECORDS SUMMARY | 2025-05-31 14:02 | XMS_ITS | Patient Health Record ---
Author Organization [facility] Address [address] [place] [address] Care Team Providers Care Special Certificate Dictator Name Role Phone Ana BAILON, Cecy Primary [...] for 1 day 01/26/2022 Active Vitamin D3 26050 UNIT Orally Active Levothyroxine Sodium 112 MCG [...] Problem Status W/U Status Risk Notes Problem [id number] Colon cancer screening (Z12.11) Active confirmed Problem 334474564 Encounter for other preprocedural examination (Z01.818) Active confirmed Plan Of Treatment Future Test Test Name Order Date COLONOSCOPY 04/05/2015 COLONOSCOPY 01/26/2022 Insurance Providers Payer Name Payer Address Payer Phone Subscriber Number Group Number Insured Name Patient Relationship to Insured Coverage Start Date Coverage End Date [facility] [address] [place], [place] [id number] DAYRON ARCE Self - patient is the insured Medical (General) History Medical History History ICD Code Colonoscopy 05/14, five-year followup for her personal history of colon polyps Hypothyroidism Hemochromatosis Osteoporosis Surgical History Surgery Date(Month/Year) back surgery breast cancer status-post lumpectomy and radiation therapy in 1996
== END 2025-05-31 13:59 | disposition home or self-care (01) ==
LOC: HO.BBR 13:58
PROVIDERS: PCP Internal Medicine; Visit Provider Internal Medicine Medical Oncology
DX: Z13.89 Encounter for screening for other disorder (principal)

== ENCOUNTER 2025-06-12 16:42 | Outpatient (REF) | payer BC, SELFPAY ==
--- OUTSIDE RECORDS SUMMARY | 2024-02-21 09:00 | XMS_ITS ---
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 :1955 A ge:68 Y S ex:Female Date:02/21/2024 Address:[address] [place], [place] [id number] Pcp:ENRRIQUE FAN MD Subjective: * Chief Complaints: * 1 . 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 * Medical History: Objective: * Vitals: Assessment: Plan: * Treatment: * Images: Billing Information: * Visit Code: * Procedure Codes: * Electronic signature of Mitch Arora MD on 06/12/2025 at 04:52 PM EDT Sign off status: Pending * Appointment Provider: Sy Arora M.D. Date: 0 02/21/2024 Generated for Owen guevara/Colleen/Jeff on: 0 06/12/2025 04:52 PM EDT
--- OUTSIDE RECORDS SUMMARY | 2025-06-12 16:52 | XMS_ITS | Patient Health Record ---
Author Organization [facility] Address [address] [place] [address] Care Team Providers Care Tinner Helper Name Role Phone Ana BAILON, Cecy [...] for 1 day 01/26/2022 Active Vitamin D3 89541 UNIT Orally Active Levothyroxine Sodium 112 MCG [...] Problem Status W/U Status Risk Notes Problem 769937960 Colon cancer screening (Z12.11) Active confirmed Problem 456172429 Encounter for other preprocedural examination (Z01.818) Active confirmed Plan Of Treatment Future Test Test Name Order Date COLONOSCOPY 04/05/2015 COLONOSCOPY 01/26/2022 Insurance Providers Payer Name Payer Address Payer Phone Subscriber Number Group Number Insured Name Patient Relationship to Insured Coverage Start Date Coverage End Date [facility] [address] [place], [place] [id number] DAYRON ARCE Self - patient is the insured Medical (General) History Medical History History ICD Code Colonoscopy 05/14, five-year followup for her personal history of colon polyps Hypothyroidism Hemochromatosis Osteoporosis Surgical History Surgery Date(Month/Year) back surgery breast cancer status-post lumpectomy and radiation therapy in 1996
--- OUTSIDE RECORDS SUMMARY | 2025-06-12 16:52 | XMS_ITS | Data Portability ---
Author Organization PRAKASH Dheeraj Kaufman [facility] Address [address] [place] [address] Assessment Encounter Date Assessment Date Assessment LastModified [...] discuss this. 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 She has been diagnosed with [...] obtained and reviewed by me today at [facility], demonstrating severe incongruent hallux valgus deformity with [...] Surgeries hallux valgus correction (SURG) 2023 024 [email or web address] Not available 4 15:40:08 Imaging XR, foot, [...] Name and Address Organization Details Recorded Time 17667 erythromy amy medicatio n Not available Not available Not available 01/31/20242021 4053 RxNorm Not Available [facility] 4 10:54:00 02567 Bactrim medicatio n Not available Not available Not available 01/31/20242021 17209 9 RxNorm Not Available [facility] 4 10:54:00 98711 Substance with sulfonami de structure and antibacte rial mechanism of action (substanc e) medicatio n Not available Not available Not available 01/31/20242021 89113 8003 SNOMED Not Available [facility] [...] Updated DateTime 04/27/2024 157.48 cm 26.5 kg/m2 88089.89 g JUNO EDWARDSPAULINE Bust[facility] 04/27/2024 [...] SNOMED-CT Code Diagnosis ICD10 Code Diagnosis Note [id number] MD Marlene Armstrong [address] [place] [address] 04/27/2024 13:43:28 05/17/2024 09:27:05 Foot pain 31345447 M79.671 Acquired h allux rigidus 2338159 M20.20 M20.21 Acquired r ight hallux valgus 8737135025 60658 M20.11 Overriding toes 78417428 3 M20.5X9 Health Concerns Section Related Observation LastModified by Organization Detai ls LastModified Time None Recorded Concern Status LastModified by Organization Details LastModified Time None Recorded Advance Directives Directive None Recorded Payers Insurance Date Sequence Insurance Name Policy Number Policy Saravia Covered Member ID Saravia Member ID Guarantor Name 05/18/2024 1 [facility]: [employer] 111 Daja Morataya [id number] Daja Morataya OBGyn Episode No OBEpisode recorded.
[2025-06-12 17:39] LABS: Albumin Level 4.5 g/dL (3.5-5.0); Calcium 9.9 mg/dL (8.4-10.2)
[2025-06-12 17:48] LABS: Parathyroid Hormone Intact 107.1 pg/mL (8.7-77.1)
[2025-06-12 18:03] LABS: Free T4 (Free Thyroxine) 1.28 ng/dL (0.71-1.85); Thyroid Stimulating Hormone 0.17 uIU/mL (0.32-4.0)
== END 2025-06-12 16:43 | disposition home or self-care (01) ==
LOC: HO.LAB 16:42
PROVIDERS: PCP Internal Medicine; Visit Provider Internal Medicine Endocrinology, Diabetes & Metabolism
DX: E89.0 Postprocedural hypothyroidism (principal); E21.3 Hyperparathyroidism, unspecified
CPT/HCPCS: 36415; 82040; 82306; 82310; 83970; 84439; 84443

== ENCOUNTER 2025-07-24 15:43 | Outpatient (AMB) | payer BC, SELFPAY ==
--- OUTSIDE RECORDS SUMMARY | 2024-02-21 09:00 | XMS_ITS ---
Author Organization [employer] [facility] Address [address] [place] [address] [address] [place] [address] Care Team Providers Care Clinical Operations Manager Name Role Phone MENG BAILON, ENRRIQUE Primary Care Provider Mojgan Willson Unavailable [phone] REASON FOR VISIT Annual PARTY PLANNER Physical Encounters Encounter Location Date Provider Diagnosis [facility] [address] [place] [address] 02/21/2024 Mojgan Arora Plan Of Treatment Next Appt Details Provider Name:Mojgan samuel, 08/24/2025 01:20:00 PM, [address] [place] [address], [address], [place], [address], Progress Notes * EVI MORALESINEDOB:1954 (69 yo F)Acc No.[id number]:02/21/2024 PROGRESS NOTES Patient: DAYRON MORALES Appointment Provider: Sy Arora M.D. :1955 A ge:68 Y S ex:Female Date:02/21/2024 Address:[address] [place], [place] [id number] Pcp:ENRRIQUE FAN MD Subjective: * Chief Complaints: * 1 . Annual PARTY PLANNER Physical. * Medical History: Objective: * Vitals: Assessment: Plan: * Treatment: * Images: Billing Information: * Visit Code: * Procedure Codes: * Electronic signature of Mitch Arora MD on 07/24/2025 at 04:31 PM EDT Sign off status: Pending * Appointment Provider: Sy Arora M.D. Date: 0 02/21/2024 Generated for Owen guevara/Colleen/Jeff on: 0 07/24/2025 04:31 PM EDT
--- OUTSIDE RECORDS SUMMARY | 2025-07-20 06:00 | XMS_ITS ---
Author Organization [employer] [facility] Address [address] [place] [address] [address] [place] [address] Care Team Providers Care Analytical Engineer Name Role Phone MENG BAILON, ENRRIQUE Primary Care Provider Mojgan Willson Unavailable [phone] REASON FOR VISIT Annual NEON TUBE PUMPER Physical Encounters Encounter Location Date Provider Diagnosis [facility] [employer] [address] [place] [address] 07/20/2025 Mojgan Arora Plan Of Treatment Next Appt Details Provider Name:Mojgan saumel, 08/24/2025 01:20:00 PM, [address] [place] [address], [address], [place], [address], Progress Notes * EVI MORALESINEDOB:1954 (69 yo F)Acc No.[id number]:07/20/2025 PROGRESS NOTES Patient: DAYRON MORALES Appointment Provider: Sy Arora M.D. :1955 A ge:69 Y S ex:Female Date:07/20/2025 Address:[address] [place], [place] [address] Pcp:ENRRIQUE FAN MD Subjective: * Chief Complaints: * 1 . Annual NEON TUBE PUMPER Physical. * Medical History: Objective: * Vitals: Assessment: Plan: * Treatment: * Images: Billing Information: * Visit Code: * Procedure Codes: * Electronic signature of Mitch Arora MD on 07/24/2025 at 04:31 PM EDT Sign off status: Pending * Appointment Provider: Sy Arora M.D. Date: 0 07/20/2025 Generated for Owen guevara/Colleen/Jeff on: 0 07/24/2025 04:31 PM EDT
[2025-07-24 16:03] VITALS: BP 92/54; PULSE 86; O2SAT 97; BMI 27.0
--- NOTE | 2025-07-24 16:03 | MHC.OFFVIS ---
Vital Signs 07/24/25 16:03 Height 5 ft 2.32 in Weight 149 lb 0.52 oz BMI 27.0 BP 92/54 L Blood Pressure Location Lt brachial Position Sitting Pulse 86 Pulse Source Pulse Oximeter Pulse Oximetry (%) 97 Oxygen Delivery Method Room Air Intake Visit Reasons: osteo/hyperparathyroid/post-ablative hypothyroid A Intake Note: Patient presents today for Osteoporosis, Hyperparathyroidism, post-ablative, and Hypothyroidism follow up. Overlock Sleeve Setter Required: No Accompanied by: Self / Same As Patient Allergies erythromycin base Allergy (Intermediate, Verified 07/24/25 16:05) Rash Sulfa (Sulfonamide Antibiotics) Allergy (Intermediate, Verified 07/24/25 16:05) rash pseudoephedrine (From Sudafed) Allergy (Unknown, Verified 07/24/25 16:05) Palpitations Medication List - Last Reconciled 07/24/25 by Reagan Muniz MD [id number] 325 mg-12.5 mcg -2.75 mg (Citracal-D3 Maximum Plus) 1 tab PO DAILY 30 days cholecalciferol (vitamin D3) 50 mcg PO DAILY 30 days fexofenadine (Shannan Allergy) 60 mg PO BID 7 days levothyroxine (Synthroid) 100 mcg PO DAILY lorazepam 0.5 mg PO DAILY PRN tobramycin 0.3% 1 drp ophthalmic (eye) Q4H 7 days HPI Comments Details: 69 YO Female with PMHx Grave's Disease and Osteoporosis who is seen in F/U for Osteoporosis. First diagnosed in 2019 with her first screening BMD. She does have a history of Grave's disease s/p I131 ablation, now with hypothyroidism on Levothyroxine 112 mcg PO daily. Labs are in the hypothyroid range. She also had very high PTH levels in the past, and has had hypercalcemia off and on since 2003. We checked labs 06/05/2020 with Calcium 10.0, Alb 4.6, PTH 71, Vitamin D 47.5. Urine 24 hour Calcium was 81, and this was an adequate collection. Labs were repeated 08/07/2020 with Calcium 9.8, Albumin 4.4, PTH 68, Vitamin D 34.7. 24 hour urine calcium was assessed and was 59, with an adequate collection. She had an US of the thyroid which revealed what appeared to be a R sided parathyroid adenoma. We had a discussion regarding referral to Endocrine surgery for evaluation for hyperparathyroidism and potential surgical parathyroidectomy, vs attempting Fosamax therapy and reassess her BMD. She opted to attempt Fosamax therapy and this was started 06/2021, however she only used this for 3 weeks and then stopped it of her own accord. She reports no significant side effects of the medication, she stopped it due to life stressors. She then resumed this 06/2022 and remains on it now. No history of pathologic fracture or ONJ. Has 1 servings of dietary calcium per day in the form of milk, cheese or yogurt. Takes Citracal 1 tab PO daily. Taking Vitamin D 2000 IU daily. Denies ever using PPI, anticoagulant, antiepileptic or chronic glucocorticoid medication. Does no weight bearing exercise daily. Fracture history: Denies Height loss: Has lost 2 inches of height. 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 , breast fed for 1 year in total. History of Kidney stones: Denies Denies a family history of Osteoporosis or hip fracture. UTD on dental cleanings and sees dentist every 6 months. No planned upcoming dental work or extractions. DXA: 08/04/2022 FINDINGS: AP SPINE L1-L4: Current: BMD 0.813 g/cm2, Z-score -1.4, T-score -3.1, osteoporosis, 4.0% decrease from baseline (<5% change is not significant). Baseline: BMD 0.847 g/cm2. LEFT FEMUR, NECK: Current: BMD 0.951 g/cm2, Z-score 0.9, T-score -0.6, normal. Baseline: BMD 0.910 g/cm2. LEFT FEMUR, TOTAL: Current: BMD 0.959 g/cm2, Z-score 0.9, T-score -0.4, normal, 3.8% increase from baseline (<5% change is not significant). Baseline: BMD 0.924 g/cm2. LEFT FOREARM RADIUS 33%: BMD 0.632 g/cm2, Z-score -1.4, T-score -2.8, osteoporosis. Baseline: Not previously measured. Thyroid US: 06/11/2020 Right Thyroid Lobe: 2.3 x 0.8 x 1.4 cm, volume 1.4 mL. Parenchyma: The gland echotexture is heterogeneous. Thyroid vascularity is normal. Left Thyroid Lobe: 1.6 x 0.5 x 1.1 cm, volume 0.5 mL. Parenchyma: The gland echotexture is heterogeneous. Thyroid vascularity is normal. Isthmus: 0.1 cm in maximum AP dimension. RIGHT THYROID LOBE: No definitive thyroid nodules. However, there is a well-circumscribed, heterogeneously isoechoic, ovoid structure with peripheral hypoechoic rind posterior to the right thyroid lobe that may represent a lymph node, measuring 0.5 x 0.3 x 0.7 cm. ISTHMUS: No nodules. LEFT THYROID LOBE: No nodules. NODES: Other than the aforementioned nodule directly posterior to the right thyroid lobe, there are no enlarged. Thyroid lymph nodes. Labs: Laboratory Tests 07/17/23 07/17/23 07/17/23 06:35 10:16 10:16 Creatinine 0.77 Estimated GFR > 60 Albumin 4.5 N-Telopeptide X-linked 26 25-OH Vitamin D Total 47.2 TSH 0.90 Free T4 1.08 PTH Intact Calcium (PTH Intact) 07/17/23 10:16 Creatinine Estimated GFR Albumin N-Telopeptide X-linked 25-OH Vitamin D Total TSH Free T4 PTH Intact 117 H Calcium (PTH Intact) 9.[address] Saha who was planning a parathyroidectomy in . 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 History of Graves' disease History of breast cancer Hemochromatosis Hyperparathyroidism Hypothyroidism Vitamin D deficiency Osteoporosis Surgical History History of lung surgery History of back surgery H/O colonoscopy Hx of cataract extraction Hx of lumpectomy Family History Sister Hemochromatosis Mother Heart problem Hypertension Type 2 diabetes mellitus Hyperlipidemia Substance use disorder Mental health disorder Daughter Type 1 diabetes mellitus Father Hyperlipidemia Hypertension Type 2 diabetes mellitus Substance use disorder Daughter Mental health disorder Social History Household Members: Children Housing: House Are you a primary life care planner to a significant other at home: No Do you presently have visiting nurse or other home services: No Alcohol intake: current Alcohol intake frequency: a few times a month Patient Tobacco Use Status: Former Tobacco user Years Smoked: 40 yrs e-Cigarette/Vaping Use: Never Used service: No Current occupational status: employed Current occupation: [employer] Cognitive needs: No Hearing needs: No Vision needs: Yes Physical Exam Vital Signs: Last Vital Signs Pulse 86 07/24/25 16:03 BP 92/54 L 07/24/25 16:03 Pulse Ox 97 07/24/25 16:03 Oxygen Delivery Method Room Air 07/24/25 16:03 BMI result Body Mass Index 27.0 Const Other: Thyroid gland is decreased in size weighs about 5 g Assessment & Plan Assessment & Plan (1) Hyperparathyroidism: Code(s): E21.3 - Hyperparathyroidism, unspecified Category: Medical Plan: Plan as per osteoporosis management (2) Osteoporosis: Code(s): M81.0 - Age-related osteoporosis without current pathological fracture Category: Medical Plan: This 68-year-old white female with history of osteoporosis with secondary workup consistent elevated PTH and low urinary calcium consistent with secondary hyperparathyroidism due to low calcium intake. However, PTH has remained persistently elevated with replete vitamin-D and mid normal urinary calcium suggesting the presence of Normocalcemic primary hyperparathyroidism The plan is to proceed with a parathyroidectomy by Dr. Saha (3) Hypothyroidism: Code(s): E03.9 - Hypothyroidism, unspecified Category: Medical Qualifiers: Hypothyroidism type: postablative Qualified Code(s): E89.0 - Postprocedural hypothyroidism Plan: Plan is to recheck TSH and free T4 and adjust levothyroxine accordingly Coding Level of Care Code Est Pt Level 3 (06176) Diagnoses Hyperparathyroidism E21.3 Osteoporosis M81.0 Postablative hypothyroidism E89.0 Hypothyroidism type: postablative
--- OUTSIDE RECORDS SUMMARY | 2025-07-24 16:32 | XMS_ITS | Patient Health Record ---
Author Organization [facility] Address [address] [place] [address] Care Team Providers Care Glass Embosser Name Role Phone Ana BAILON, Cecy Primary [...] for 1 day 01/26/2022 Active Vitamin D3 30586 UNIT Orally Active Levothyroxine Sodium 112 MCG [...] Problem Status W/U Status Risk Notes Problem 917206265 Colon cancer screening (Z12.11) Active confirmed Problem 879804503 Encounter for other preprocedural examination (Z01.818) Active confirmed Plan Of Treatment Future Test Test Name Order Date COLONOSCOPY 04/05/2015 COLONOSCOPY 01/26/2022 Insurance Providers Payer Name Payer Address Payer Phone Subscriber Number Group Number Insured Name Patient Relationship to Insured Coverage Start Date Coverage End Date [facility] [address] [place], [place] [id number] DAYRON ARCE Self - patient is the insured Medical (General) History Medical History History ICD Code Colonoscopy 05/14, five-year followup for her personal history of colon polyps Hypothyroidism Hemochromatosis Osteoporosis Surgical History Surgery Date(Month/Year) back surgery breast cancer status-post lumpectomy and radiation therapy in 1996
--- OUTSIDE RECORDS SUMMARY | 2025-07-24 16:32 | XMS_ITS | Patient Health Record ---
Author Organization [facility] Address [address] [place] [address] Care Team Providers Care Blasting Worker Name Role Phone ENRRQIUE FAN MD Primary Care Provider Mojgan Willson [phone] Allergies Allergen (clinical drug ingredient) Drug/Non Drug Allergy documented on EMR Reaction Allergy Type Onset Date Status sulfamethoxazole / trimethoprim Bactrim Unknown Drug Allergy Active erythromycin Erythromycin Unknown Drug Allergy A ctive Reason For Referral No Information Medications Medication SIG (Take, Route, Frequency, Duration) Notes Start Date End Date Status Vitamin D3 50 MCG (1999) 1 capsule Or ally Once a day; Duration: 30 day(s) Active Levothyroxine Sodium 112 MCG 1 tablet on an empty stomach in the morning Orally Once a day; Duration: 30 day(s) Active Calcium 1 tab Oral; Duration : 14 days Active Cetirizine HCl 10 MG [...] Status Risk Notes Problem Postmenopausal atrophic vaginitis (10828938) Postmenopausal atrophic vaginitis (N95.2) Active confirmed Problem Age-related osteoporosis (374984590) Age-related osteoporosis without current pathological fracture (M81.0) Active confirmed Problem Hypothyroidism (30350826) Hypothyroidism, unspecified (E03.9) Active confirmed Problem Intraductal carcinoma in situ of left breast (6774082144309532) 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 Problem Hemochromatosis (326472125) Other hemochromatosis (E83.118) Active confirmed Problem Chronic interstitial cystitis (030881686) Interstitial cystitis (chronic) without hematuria (N30.10) Active confirmed Problem Personal history of primary malignant neoplasm of breast (631390153) Personal history of malignant neoplasm of breast (Z85.3) Active confirmed Problem History of carcinoma in situ of breast (10193124894088084 ) Personal history of in-situ neoplasm of breast (Z86.000) Active confirmed Plan Of Treatment Pending Test Test Name [...] Screening 02/15/2023 Next Appt Details Provider Name:Mojgan samuel, 08/24/2025 01:20:00 PM, [address], [address], [place], [address], Insurance Providers Payer Name Payer Address Payer Phone Subscriber Number Group Number Insured Name Patient Relationship to Insured Coverage Start Date Coverage End Date [employer] [address] [place] [address] [id number] DAYRON MORALES Self - patient is the [...] Biopsy 1997 Back Surgery 2003 Bilateral cataract 2019 Colonoscopy Hospitalization History Reason Date(Month/Year) See Surgical Hx 3 Vaginal Deliveries
== END 2025-07-24 16:47 | disposition home or self-care (01) ==
LOC: HO.ENCR 15:43
PROVIDERS: PCP Internal Medicine; Visit Provider Internal Medicine Endocrinology, Diabetes & Metabolism
DX: E21.3 Hyperparathyroidism, unspecified (principal); M81.0 Age-related osteoporosis without current pathological fracture; E89.0 Postprocedural hypothyroidism
CPT/HCPCS: 99213

== ENCOUNTER 2025-07-28 09:22 | Outpatient (REF) | payer BC, SELFPAY ==
--- OUTSIDE RECORDS SUMMARY | 2024-02-21 09:00 | XMS_ITS ---
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 :1955 A ge:68 Y S ex:Female Date:02/21/2024 Address:[address] [place], [place] [id number] Pcp:ENRRIQUE FAN MD Subjective: * Chief Complaints: * 1 . 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 * Medical History: Objective: * Vitals: Assessment: Plan: * Treatment: * Images: Billing Information: * Visit Code: * Procedure Codes: * Electronic signature of Mitch Arora MD on 07/28/2025 at 09:25 AM EDT Sign off status: Pending * Appointment Provider: Sy Arora M.D. Date: 0 02/21/2024 Generated for Owen guevara/Colleen/Jeff on: 0 07/28/2025 09:25 AM EDT
--- OUTSIDE RECORDS SUMMARY | 2025-07-20 06:00 | XMS_ITS ---
Author Organization [facility] Address [address] [place] [address] [address] [place] [address] Care Team Providers Care Inspector Machined Parts Name Role Phone MENG BAILON, ENRRIQUE Primary Care Provider Mojgan Willson Unavailable [phone] REASON FOR VISIT Annual FILING AND POLISHING SUPERVISOR Physical Encounters Encounter Location Date Provider Diagnosis [facility] [address] [place] [address] 07/20/2025 Mojgan Arora Plan Of Treatment Next Appt Details Provider Name:Mojgan samuel, 08/24/2025 01:20:00 PM, [address] [place] [address], [address], [place], [address], Progress Notes * EVI MORALESINEDOB:1954 (69 yo F)Acc No.[id number]:07/20/2025 PROGRESS NOTES Patient: DAYRON MORALES Appointment Provider: Sy Arora M.D. :1955 A ge:69 Y S ex:Female Date:07/20/2025 Address:[address] [place], [place] [id number] Pcp:ENRRIQUE FAN MD Subjective: * Chief Complaints: * 1 . Annual FILING AND POLISHING SUPERVISOR Physical. * Medical History: Objective: * Vitals: Assessment: Plan: * Treatment: * Images: Billing Information: * Visit Code: * Procedure Codes: * Electronic signature of Mitch Arora MD on 07/28/2025 at 09:25 AM EDT Sign off status: Pending * Appointment Provider: Sy Arora M.D. Date: 0 07/20/2025 Generated for Owen guevara/Colleen/Jeff on: 0 07/28/2025 09:25 AM EDT
--- OUTSIDE RECORDS SUMMARY | 2025-07-28 09:26 | XMS_ITS | Patient Health Record ---
Author Organization [employer] [facility] Address [address] [place] [address] Care Team Providers Care Hide Trimmer Name Role Phone ENRRIQUE FAN MD Primary Care Provider Mojgan Willson [phone] Allergies Allergen (clinical drug ingredient) Drug/Non Drug [...] Status Risk Notes Problem Postmenopausal atrophic vaginitis (N95.2) Active confirmed Problem Age-related osteoporosis (822299498) Age-related osteoporosis without current pathological fracture (M81.0) Active confirmed Problem Hypothyroidism (50039988) Hypothyroidism, unspecified (E03.9) Active confirmed Problem Intraductal carcinoma in situ of left breast (4343663016554695) 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 Problem Hemochromatosis (732028639) Other hemochromatosis (E83.118) Active confirmed Problem Chronic interstitial cystitis (878747041) Interstitial cystitis (chronic) without hematuria (N30.10) Active confirmed Problem Personal history of primary malignant neoplasm of breast (444115756) Personal history of malignant neoplasm of breast (Z85.3) Active confirmed Problem History of carcinoma in situ of breast (94704317076512235 ) Personal history of in-situ neoplasm of [...] Details Provider Name:Mojgan samuel, 08/24/2025 01:20:00 PM, [address] [place] [address], [address], [place], [address], Insurance Providers Payer Name Payer Address Payer Phone Subscriber Number Group Number Insured Name Patient Relationship to Insured Coverage Start Date Coverage End Date [employer] [address] [place] [address] [phone] [id number] DAYRON MORALES Self - patient is the [...]
--- OUTSIDE RECORDS SUMMARY | 2025-07-28 09:26 | XMS_ITS | Patient Health Record ---
Author Organization [facility] Address [address] [place] [address] Care Team Providers Care Press Operator Carbon Blocks Name Role Phone Ana BAILON, Cecy Primary [...] for 1 day 01/26/2022 Active Vitamin D3 10607 UNIT Orally Active Levothyroxine Sodium 112 MCG [...] Problem Status W/U Status Risk Notes Problem 384559638 Colon cancer screening (Z12.11) Active confirmed Problem 321807597 Encounter for other preprocedural examination (Z01.818) Active confirmed Plan Of Treatment Future Test Test Name Order Date COLONOSCOPY 04/05/2015 COLONOSCOPY 01/26/2022 Insurance Providers Payer Name Payer Address Payer Phone Subscriber Number Group Number Insured Name Patient Relationship to Insured Coverage Start Date Coverage End Date [facility] [address] [place], [place] [id number] DAYRON ARCE Self - patient is the insured Medical (General) History Medical History History ICD Code Colonoscopy 05/14, five-year followup for her personal history of colon polyps Hypothyroidism Hemochromatosis Osteoporosis Surgical History Surgery Date(Month/Year) back surgery breast cancer status-post lumpectomy and radiation therapy in 1996
[2025-07-28 10:55] LABS: Free T4 (Free Thyroxine) 1.46 ng/dL (0.71-1.85); Thyroid Stimulating Hormone 0.29 uIU/mL (0.32-4.0)
== END 2025-07-28 09:23 | disposition home or self-care (01) ==
LOC: HO.LAB 09:22
PROVIDERS: PCP Internal Medicine; Visit Provider Internal Medicine Endocrinology, Diabetes & Metabolism
DX: E21.3 Hyperparathyroidism, unspecified (principal); E89.0 Postprocedural hypothyroidism
CPT/HCPCS: 36415; 84439; 84443

== ENCOUNTER 2025-08-02 09:21 | Outpatient (REF) | payer BC, SELFPAY | END 2025-08-02 09:22 | disposition home or self-care (01) | LOC: HO.LNP 09:21 | PROVIDERS: PCP Internal Medicine; Visit Provider Physician Assistant Medical | DX: M54.50 Low back pain, unspecified (principal); Z13.89 Encounter for screening for other disorder | CPT/HCPCS: 81003; 87086 ==

== ENCOUNTER 2025-08-02 09:21 | Outpatient (AMB) | payer BC, SELFPAY ==
--- OUTSIDE RECORDS SUMMARY | 2024-02-21 09:00 | XMS_ITS ---
Author Organization [facility] [employer] [facility] Address [address] [place] [address] [address] [place] [address] Care Team Providers Care Removable Prosthodontist Name Role Phone MENG BAILON, ENRRIQUE Primary Care Provider Mojgan Willson Unavailable [phone] REASON FOR VISIT Annual ALLIANCE DIRECTOR Physical Encounters Encounter Location Date Provider Diagnosis [facility] [address] [place] [address] 02/21/2024 Mojgan Arora Plan Of Treatment Next Appt Details Provider Name:Mojgan samuel, 08/24/2025 01:20:00 PM, [address] [place] [address], [address], [place], [address], Progress Notes * EVI MORALESINEDOB:1954 (69 yo F)Acc No.[id number]:02/21/2024 PROGRESS NOTES Patient: DAYRON MORALES Appointment Provider: Sy Arora M.D. :1955 A ge:68 Y S ex:Female Date:02/21/2024 Address:[address] [place], [place] [id number] Pcp:ENRRIQUE FAN MD Subjective: * Chief Complaints: * 1 . Annual ALLIANCE DIRECTOR Physical. * Medical History: Objective: * Vitals: Assessment: Plan: * Treatment: * Images: Billing Information: * Visit Code: * Procedure Codes: * Electronic signature of Mitch Arora MD on 08/02/2025 at 10:00 AM EDT Sign off status: Pending * Appointment Provider: Sy Arora M.D. Date: 0 02/21/2024 Generated for Owen guevara/Colleen/Jeff on: 0 08/02/2025 10:00 AM EDT
--- OUTSIDE RECORDS SUMMARY | 2025-07-20 06:00 | XMS_ITS ---
Author Organization [facility] [facility] Address [address] [place] [address] [address] [place] [address] Care Team Providers Care Marklogic Developer Name Role Phone MENG BAILON, ENRRIQUE Primary Care Provider Mojgan Willson Unavailable [phone] REASON FOR VISIT Annual SHRIMP TRAWLER Physical Encounters Encounter Location Date Provider Diagnosis [facility] [employer] [address] [place] [address] 07/20/2025 Mojgan Arora Plan Of Treatment Next Appt Details Provider Name:Mojgan samuel, 08/24/2025 01:20:00 PM, [address] [place] [address], [address], [place], [address], Progress Notes * EVI MORALESINEDOB:1954 (69 yo F)Acc No.[id number]:07/20/2025 PROGRESS NOTES Patient: DAYRON MORALES Appointment Provider: Sy Arora M.D. :1955 A ge:69 Y S ex:Female Date:07/20/2025 Address:[address] [place], [place] [id number] Pcp:ENRRIQUE FAN MD Subjective: * Chief Complaints: * 1 . Annual SHRIMP TRAWLER Physical. * Medical History: Objective: * Vitals: Assessment: Plan: * Treatment: * Images: Billing Information: * Visit Code: * Procedure Codes: * Electronic signature of Mitch Arora MD on 08/02/2025 at 10:00 AM EDT Sign off status: Pending * Appointment Provider: Sy Arora M.D. Date: 0 07/20/2025 Generated for Owen guevara/Colleen/Jeff on: 0 08/02/2025 10:00 AM EDT
[2025-08-02 09:28] VITALS: BP 126/64; PULSE 86; TEMP 36.7; O2SAT 96; BMI 27.2
--- NOTE | 2025-08-02 09:28 | AM.OFFWIN_ITS ---
Intake Vital Signs 08/02/25 09:28 Height 5 ft 2 in Weight 149 lb BMI 27.2 BP 126/64 Blood Pressure Location Lt brachial Position Sitting Pulse 86 Pulse Source Pulse Oximeter Temp 98.0 F Temp Source Oral Pulse Oximetry (%) 96 Oxygen Delivery Method Room Air Intake Visit Reasons: EP lower back pain, ? uti Intake Note: * pt presents with lower back pain that started yesterday afternoon. decreased voiding frequency Patient Tobacco Use Status: Former Tobacco user Allergies erythromycin base Allergy (Intermediate, Verified 08/02/25 09:35) Rash Sulfa (Sulfonamide Antibiotics) Allergy (Intermediate, Verified 08/02/25 09:35) rash pseudoephedrine (From Sudafed) Allergy (Unknown, Verified 08/02/25 09:35) Palpitations Do you need a note to return to daycare/school/sports/work: No HPI HPI Comments History of Present Illness Details History - The patient is a 69-year-old female pr esenting with acute onset of low back pain. - The back pain began yesterday afternoo n at work, described as a severe spasm- like pain in the lower back, exacerbated by movement and alleviated by rest. - The patient assisted her daughter with moving furniture two days prior, which may have contributed to the onset of symptoms. - She has been having pain when she donnelly ges position and was having pain when she rolled over in bed. - She states that she has a spasm like p ain that comes and goes. - Urinary symptoms include decreased christiano quency of urination without dysuria, and no frequency and urgency. - There is no history of kidney stones. - She denies hematuria, CP, SOB, fever, chills, abd pain. - She denies saddle anesthesia, incontin ence, numbness or tingling. Physical Exam General: cooperative, healthy appearing and comfortable, patient oriented x3 Head: Normal to inspection, normocephalic/atraumatic Effort & Inspection: Normal respiratory effort and able to speak in complete sentences. Cardiac: RRR, no M/R/G noted. Normal S1 and S2. Respiratory: Clear to auscultation bilaterally. No w/r/r noted. GI: Soft, non-tender, non-distended. No guarding or rebound tenderness noted. Back/spine: No CVA tenderness bilaterally. Cervical, thoracic and lumbar spine normal to inspection. Cervical ROM normal, no midline spinous tenderness noted. Thoracic ROM normal, lumbar ROM normal. No midline vertebral spinous tenderness noted. No step offs noted. No TTP of the thoracic or lumbar paraspinous or paravertebral muscles. DTR are 2+ on the lower extremities noted. Ambulates with a steady gait. Extremities: Straight leg raise test negative on right; Straight leg raise test negative on left; motor strength normal 5/5 bilaterally. Neuro: Sensation intact. Patient was informed and verbally consented to the use of an ambient scribe for clinic note documentation during this visit. 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 History of Graves' disease History of breast cancer Hemochromatosis Hyperparathyroidism Hypothyroidism Vitamin D deficiency Osteoporosis Surgical History History of lung surgery History of back surgery H/O colonoscopy Hx of cataract extraction Hx of lumpectomy Family History Sister Hemochromatosis Mother Heart problem Hypertension Type 2 diabetes mellitus Hyperlipidemia Substance use disorder Mental health disorder Daughter Type 1 diabetes mellitus Father Hyperlipidemia Hypertension Type 2 diabetes mellitus Substance use disorder Daughter Mental health disorder Social History Household Members: Children Housing: House Are you a primary intensive care ambulance paramedic to a significant other at home: No Do you presently have visiting nurse or other home services: No Alcohol intake: current Alcohol intake frequency: a few times a month Patient Tobacco Use Status: Former Tobacco user Years Smoked: 40 yrs e-Cigarette/Vaping Use: Never Used service: No Current occupational status: employed Current occupation: [employer] Cognitive needs: No Hearing needs: No Vision needs: Yes Review of Systems Const All systems reviewed & are unremarkable except as noted in HPI and below Physical Exam Vital Signs: Last Vital Signs Temp 98.0 F 08/02/25 09:28 Pulse 86 08/02/25 09:28 BP 126/64 08/02/25 09:28 Pulse Ox 96 08/02/25 09:28 Oxygen Delivery Method Room Air 08/02/25 09:28 BMI result Body Mass Index 27.2 Results AMB Urinalysis, Automated UA Leukoctes 0 Nickolas/uL Last Edit by Butch Espinoza CMA on 08/02/25 09:36 UA Nitrite Negative Last Edit by Butch Espinoza CMA on 08/02/25 09:36 UA Urobilinogen 0.2 mg/dL Last Edit by Butch Espinoza CMA on 08/02/25 09 :36 UA Protein 0 mg/dL Last Edit by Butch Espinoza CMA on 08/02/25 09:36 UA pH 6.0 Last Edit by Butch Espinoza CMA on 08/02/25 09:36 UA Blood 10 Jose J/uL Last Edit by Butch Espinoza CMA on 08/02/25 09:36 UA Specific [place] 1.005 Last Edit by Butch Espinoza CMA on 08/02/25 09:36 UA Ketone Negative Last Edit by Butch Espinoza CMA on 08/02/25 09:36 UA Bilirubin 0 mg/dL Last Edit by Butch Espinoza CMA on 08/02/25 09:36 UA Glucose 0 mg/dL Last Edit by Butch Espinoza CMA on 08/02/25 09:36 Results Reviewed Results Reviewed: Laboratory Last Values Urine pH (Auto) 6.0 08/02/25 09:28 Specific [place] (Auto) 1.005 08/02/25 09:28 Urine Protein (Auto) 0 mg/dL 08/02/25 09:28 Glucose (UA)(Auto) 0 mg/dL 08/02/25 09:28 Urine Ketones (Auto) Negative 08/02/25 09:28 Urine Blood (Auto) 10 Jose J/uL 08/02/25 09:28 Urine Nitrite (Auto) Negative 08/02/25 09:28 Urine Bilirubin (Auto) 0 mg/dL 08/02/25 09:28 Urine Urobilinogen (Auto) 0.2 mg/dL 08/02/25 09:28 Leukocyte Esterase (Auto) 0 Nickolas/uL 08/02/25 09:28 Assessment & Plan Assessment & Plan (1) Back pain: Code(s): M54.9 - Dorsalgia, unspecified Qualifiers: Back pain location: low back pain Chronicity: acute Back pain laterality: bilateral Sciatica presence: without sciatica Qualified Code(s): M54.50 - Low back pain, unspecified Plan Most likely MSK pain however can't rule out early UTI vs stone due to +blood on UA in the office plan 1. Musculoskeletal Back Pain - Recommend use of naproxen 500 mg twice daily for pain management. - Advise use of heating pad and avoidance of heavy lifting. 2. Possible Nephrolithiasis - Consider Flomax to facilitate passage of potential kidney stone. - Monitor for symptoms such as nausea and increased pain, which may indicate stone progression. 3. Urinary Tract Infection (Suspected) - Send urine culture to confirm presence of infection. - Await results to determine need for antibiotic therapy. Orders: Orders AMB Urinalysis Automated Today Z13.9 - Encounter for screening, unspecified Urine Culture Today N39.0 - Urinary tract infection, site not specified Medications: New cyclobenzaprine 5 mg PO Q8H PRN 20 tabs 0RF Muscle Spasm tamsulosin (Flomax) 0.4 mg PO DAILY 7 caps 0RF 7 days Coding Level of Care Code Est Pt Level 3 (82795) Diagnoses Acute bilateral low back pain without sciatica M54.50 Back pain location: low back pain Chronicity: acute Back pain laterality: bilateral Sciatica presence: without sciatica
--- OUTSIDE RECORDS SUMMARY | 2025-08-02 10:01 | XMS_ITS | Patient Health Record ---
Author Organization [facility] Address [address] [place] [address] Care Team Providers Care Route Driver Salesperson Name Role Phone Ana BAILON, Cecy Primary [...] for 1 day 01/26/2022 Active Vitamin D3 13210 UNIT Orally Active Levothyroxine Sodium 112 MCG [...] Problem Status W/U Status Risk Notes Problem 260509905 Colon cancer screening (Z12.11) Active confirmed Problem 779944892 Encounter for other preprocedural examination (Z01.818) Active confirmed Plan Of Treatment Future Test Test Name Order Date COLONOSCOPY 04/05/2015 COLONOSCOPY 01/26/2022 Insurance Providers Payer Name Payer Address Payer Phone Subscriber Number Group Number Insured Name Patient Relationship to Insured Coverage Start Date Coverage End Date [facility] [address] [place], [place] [id number] DAYRON ARCE Self - patient is the insured Medical (General) History Medical History History ICD Code Colonoscopy 05/14, five-year followup for her personal history of colon polyps Hypothyroidism Hemochromatosis Osteoporosis Surgical History Surgery Date(Month/Year) back surgery breast cancer status-post lumpectomy and radiation therapy in 1996
--- OUTSIDE RECORDS SUMMARY | 2025-08-02 10:01 | XMS_ITS | Patient Health Record ---
Author Organization [employer] [facility] Address [address] [place] [address] Care Team Providers Care Tree Marker Name Role Phone ENRRIQUE FAN MD Primary Care Provider Mojgan Willson [phone] Allergies Allergen (clinical drug ingredient) Drug/Non Drug [...] Status Risk Notes Problem Postmenopausal atrophic vaginitis (08500148) Postmenopausal atrophic vaginitis (N95.2) Active confirmed Problem Age-related osteoporosis (703429621) Age-related osteoporosis without current pathological fracture (M81.0) Active confirmed Problem Hypothyroidism (35333766) Hypothyroidism, unspecified (E03.9) Active confirmed Problem Intraductal carcinoma in situ of left breast (4816787576668966) 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 Problem Hemochromatosis (934039468) Other hemochromatosis (E83.118) Active confirmed Problem Chronic interstitial cystitis (058231980) Interstitial cystitis (chronic) without hematuria (N30.10) Active confirmed Problem Personal history of primary malignant neoplasm of breast (420020523) Personal history of malignant neoplasm of breast (Z85.3) Active confirmed Problem History of carcinoma in situ of breast (58880704835627813 ) Personal history of in-situ neoplasm of [...] Provider Name:Mojgan samuel, 08/24/2025 01:20:00 PM, [address], [address], [place], [address], Insurance Providers Payer Name Payer Address Payer Phone Subscriber Number Group Number Insured Name Patient Relationship to Insured Coverage Start Date Coverage End Date [employer] [address] [place] [address] [id number] DAYRON MORALES Self - patient is the [...]
== END 2025-08-02 10:31 | disposition home or self-care (01) ==
PROVIDERS: PCP Internal Medicine; Visit Provider Physician Assistant Medical
DX: Z13.9 Encounter for screening, unspecified (principal); M54.50 Low back pain, unspecified

== ENCOUNTER 2025-08-10 13:25 | Outpatient (REF) | payer BC, SELFPAY ==
[2025-08-11 14:52] LABS: Bacterial Vaginosis PCR NEGATIVE (Negative); Candida Group PCR NOT DETECTED (Not Detect); Candida glab krusei PCR NOT DETECTED (Not Detect); Trichomonas vaginalis PCR NOT DETECTED (Not Detect)
== END 2025-08-10 13:26 | disposition home or self-care (01) ==
LOC: HO.LNP 13:25
PROVIDERS: PCP Internal Medicine; Visit Provider Physician Assistant
DX: N76.0 Acute vaginitis (principal); M54.50 Low back pain, unspecified
CPT/HCPCS: 81003; 81515

== ENCOUNTER 2025-08-10 13:25 | Outpatient (AMB) | payer BC, SELFPAY ==
--- OUTSIDE RECORDS SUMMARY | 2024-02-21 09:00 | XMS_ITS ---
Author Organization [facility] Address [address] [place] [address] [address] [place] [address] Care Team Providers Care Service Delivery Analyst Name Role Phone MENG BAILON, ENRRIQUE Primary Care Provider Mojgan Willson Unavailable [phone] REASON FOR VISIT Annual BUSBOY Physical Encounters Encounter Location Date Provider Diagnosis [facility] [address] [place] [address] 02/21/2024 Mojgan Arora Plan Of Treatment Next Appt Details Provider Name:Mojgan samuel, 08/24/2025 01:20:00 PM, [address] [place] [address], [address], [place], [address], Progress Notes * EVI MORALESINEDOB:1954 (69 yo F)Acc No.[id number]:02/21/2024 PROGRESS NOTES Patient: DAYRON MORALES Appointment Provider: Sy Arora M.D. :1955 A ge:68 Y S ex:Female Date:02/21/2024 Address:[address] [place], [place] [id number] Pcp:ENRRIQUE FAN MD Subjective: * Chief Complaints: * 1 . Annual BUSBOY Physical. * Medical History: Objective: * Vitals: Assessment: Plan: * Treatment: * Images: Billing Information: * Visit Code: * Procedure Codes: * Electronic signature of Mitch Arora MD on 08/10/2025 at 04:04 PM EDT Sign off status: Pending * Appointment Provider: Sy Arora M.D. Date: 0 02/21/2024 Generated for Owen guevara/Colleen/Jeff on: 0 08/10/2025 04:04 PM EDT
--- OUTSIDE RECORDS SUMMARY | 2025-07-20 06:00 | XMS_ITS ---
Author Organization [facility] Address [address] [place] [address] [address] [place] [address] Care Team Providers Care Unit Assistant Name Role Phone MENG BAILON, ENRRIQUE Primary Care Provider Mojgan Willson Unavailable [phone] REASON FOR VISIT Annual ADJUSTER AND INSPECTOR Physical Encounters Encounter Location Date Provider Diagnosis [facility] [address] [place] [address] 07/20/2025 Mojgan Arora Plan Of Treatment Next Appt Details Provider Name:Mojgan samuel, 08/24/2025 01:20:00 PM, [address] [place] [address], [address], [place], [address], Progress Notes * EVI MORALESINEDOB:1954 (69 yo F)Acc No.[id number]:07/20/2025 PROGRESS NOTES Patient: DAYRON MORALES Appointment Provider: Sy Arora M.D. :1955 A ge:69 Y S ex:Female Date:07/20/2025 Address:[address] [place], [place] [id number] Pcp:ENRRIQUE FAN MD Subjective: * Chief Complaints: * 1 . Annual ADJUSTER AND INSPECTOR Physical. * Medical History: Objective: * Vitals: Assessment: Plan: * Treatment: * Images: Billing Information: * Visit Code: * Procedure Codes: * Electronic signature of Mitch Arora MD on 08/10/2025 at 04:05 PM EDT Sign off status: Pending * Appointment Provider: Sy Arora M.D. Date: 0 07/20/2025 Generated for Owen guevara/Colleen/Jeff on: 0 08/10/2025 04:05 PM EDT
[2025-08-10 13:31] VITALS: BP 108/82; PULSE 85; RESP 16; TEMP 36.8; O2SAT 96; BMI 27.4
--- NOTE | 2025-08-10 13:31 | MHC.OFFWIV ---
Intake Vital Signs 08/10/25 13:31 Height 5 ft 2 in Weight 150 lb BMI 27.4 BP 108/82 Blood Pressure Location Lt brachial Position Sitting Respiration 16 Pulse 85 Pulse Source Pulse Oximeter Temp 98.2 F Temp Source Oral Pulse Oximetry (%) 96 Oxygen Delivery Method Room Air Intake Visit Reasons: EP UTI??? lower back pain Patient Tobacco Use Status: Former Tobacco user Allergies erythromycin base Allergy (Intermediate, Verified 08/02/25 09:35) Rash Sulfa (Sulfonamide Antibiotics) Allergy (Intermediate, Verified 08/02/25 09:35) rash pseudoephedrine (From Sudafed) Allergy (Unknown, Verified 08/02/25 09:35) Palpitations HPI HPI Comments History of Present Illness Details This is a 69 year old female presenting for evaluation of low back pain. The patient states since the beginning of July she has had a pressure in her low back that is worse with movement. Patient denies any radiation of pain into her lower extremities, saddle paresthesias, bladder or bowel incontinence. Patient does state, however that she feels unable to completely empty her bladder at times. She denies having any fevers, chills, hematuria, dysuria, abdominal pain or vaginal discharge but states that she does have vaginal itching intermittently. Patient was seen at the walk-in last week and prescribed cyclobenzaprine which she states has been helpful for her low back pain but is somewhat sedating. Additionally, she is taking ibuprofen 400 mg twice daily. Patient had a urine culture last week which was negative for any acute pathology. Patient states that her low back pain has improved but still persists. She does have an appointment with her primary care physician next week for follow up. 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 History of Graves' disease History of breast cancer Hemochromatosis Hyperparathyroidism Hypothyroidism Vitamin D deficiency Osteoporosis Surgical History History of lung surgery History of back surgery H/O colonoscopy Hx of cataract extraction Hx of lumpectomy Family History Sister Hemochromatosis Mother Heart problem Hypertension Type 2 diabetes mellitus Hyperlipidemia Substance use disorder Mental health disorder Daughter Type 1 diabetes mellitus Father Hyperlipidemia Hypertension Type 2 diabetes mellitus Substance use disorder Daughter Mental health disorder Social History Household Members: Children Housing: House Are you a primary rn care transition to a significant other at home: No Do you presently have visiting nurse or other home services: No Alcohol intake: current Alcohol intake frequency: a few times a month Patient Tobacco Use Status: Former Tobacco user Years Smoked: 40 yrs e-Cigarette/Vaping Use: Never Used service: No Current occupational status: employed Current occupation: [employer] Cognitive needs: No Hearing needs: No Vision needs: Yes Review of Systems Const All systems reviewed & are unremarkable except as noted in HPI and below Reports no additional complaints Eyes Reports no additional complaints ENT Reports no additional complaints Card Reports no additional complaints Resp Reports no additional complaints GI Reports no additional complaints Reports difficulty voiding (feels unable to fully empty her bladder), Denies vaginal discharge and Reports vaginal pruritus Musc Reports back pain (low back pain, bilaterally across lower lumbar region) Skin/Breast Reports system reviewed and no additional complaints, except as documented Neuro Reports no additional complaints and Denies Sensory deficit (Neuro) Psych Reports no additional complaints Endo Reports no additional complaints Leif/Lymph Reports no additional complaints Aller/Immun Reports no additional complaints Physical Exam Vital Signs: Last Vital Signs Temp 98.2 F 08/10/25 13:31 Pulse 85 08/10/25 13:31 Resp 16 08/10/25 13:31 BP 108/82 08/10/25 13:31 Pulse Ox 96 08/10/25 13:31 Oxygen Delivery Method Room Air 08/10/25 13:31 BMI result Body Mass Index 27.4 Const General: cooperative, healthy appearing, comfortable, no acute distress, well developed, alert, awake, Physically active and well groomed; No acute distress, ill appearing or lethargic Nutritional Appearance: well nourished Orientation/consciousness: patient oriented x3 and No lethargic Limitations: no limitations GI Inspection: Yes normal to inspection and No distended Palpation (GI): Soft to palpation, nontender and no guarding General: Yes Bimanual renal exam normal bilaterally, Yes bladder normal to palpation and Yes no CVA tenderness External Female Exam: normal external appearance, normal appearance of the urethra, No erythema, No externally tender, No external swelling, No urethral discharge, No tender and other (Speculum exam is deferred however there is no overt vaginal discharge noted) Bimanual exam- vagina & uterus: bladder normal to palpation Back/Spine/Pelvis Back: no CVA tenderness Thoracic/Lumbar Spine: thoracic and lumbar spine normal to inspection, thoraco-lumbar ROM normal, paraspinal muscle tenderness bilaterally in the mid lumbar and in the lower lumbar, No thoraco-lumbar ROM limited, No thoracic spinal tenderness and No lumbar spinal tenderness Skin General skin exam: no rashes or lesions noted Neuro General: patient oriented x3 Gait exam (Neuro): Normal gait present Sensory Exam: Abnormal lower extremity sensory exam (sensation intact lower extremities bilaterally); No Sensory deficit (Neuro) Psych Appearance: grossly normal Mental Status: mental status grossly normal Insight: Good insight present (Psych) Judgement: Good judgement present (Psych) Results AMB Urinalysis, Automated UA Leukoctes 0 Nickolas/uL Last Edit by Penny Tariq CMA on 08/10/25 13:49 UA Nitrite Negative Last Edit by Penny Tariq CMA on 08/10/25 13:49 UA Urobilinogen 0.2 mg/dL Last Edit by Penny Tariq CMA on 08/10/25 13:49 UA Protein 0 mg/dL Last Edit by Penny Tariq CMA on 08/10/25 13:49 UA pH 6.0 Last Edit by Penny Tariq CMA on 08/10/25 13:49 UA Blood 0 Jose J/uL Last Edit by Penny Tariq CMA on 08/10/25 13:49 UA Specific [place] 1.005 Last Edit by Penny Tariq CMA on 08/10/25 13:49 UA Ketone Negative Last Edit by Penny Tariq CMA on 08/10/25 13:49 UA Bilirubin 0 mg/dL Last Edit by Penny Tariq CMA on 08/10/25 13:49 UA Glucose 0 mg/dL Last Edit by Penny Tariq CMA on 08/10/25 13:49 Assessment & Plan Assessment & Plan (1) Vaginitis: Comment: Bacterial vaginosis panel pending at this time. Code(s): N76.0 - Acute vaginitis Qualifiers: Chronicity: acute Qualified Code(s): N76.0 - Acute vaginitis Plan: No treatment initiated at this time pending results of BV panel. Additionally, there is no evidence of an acute urinary tract infection on urinalysis today. (2) Low back pain: Comment: Patient's back pain has improved somewhat with intermittent ibuprofen and cyclobenzaprine. Patient will be prescribed Naprosyn to take for more continued anti-inflammatory effect. Code(s): M54.50 - Low back pain, unspecified Qualifiers: Back pain laterality: bilateral Chronicity: unspecified Sciatica presence: without sciatica Qualified Code(s): M54.50 - Low back pain, unspecified Plan: Naprosyn 500 mg q.12 hours, cyclobenzaprine t.i.d. as tolerated. Patient will follow up with her primary care physician next week and may be a candidate for physical therapy consultation if medications have not resolved her discomfort. Orders: Orders AMB Urinalysis Automated Today Z13.9 - Encounter for screening, unspecified Bacterial Vaginosis Panel Today N76.0 - Acute vaginitis Medications: New naproxen (Naprosyn) 500 mg PO BID 20 tabs 0RF cyclobenzaprine 5 mg PO TID 15 tabs 0RF muscle spasm Coding Level of Care Code Est Pt Level 3 (45814) Diagnoses Acute vaginitis N76.0 Chronicity: acute Bilateral low back pain without sciatica, unspecified chronicity M54.50 Back pain laterality: bilateral Chronicity: unspecified Sciatica presence: without sciatica Time Spent (min) 20
--- OUTSIDE RECORDS SUMMARY | 2025-08-10 16:05 | XMS_ITS | Patient Health Record ---
Author Organization [facility] Address [address] [place] [address] Care Team Providers Care Supervisor General Name Role Phone ENRRIQUE FAN MD Primary Care Provider Mojgan Willson [phone] Allergies Allergen (clinical drug ingredient) Drug/Non Drug [...] Status Risk Notes Problem Postmenopausal atrophic vaginitis (65753695) Postmenopausal atrophic vaginitis (N95.2) Active confirmed Problem Age-related osteoporosis (062989534) Age-related osteoporosis without current pathological fracture (M81.0) Active confirmed Problem Hypothyroidism (52104575) Hypothyroidism, unspecified (E03.9) Active confirmed Problem Intraductal carcinoma in situ of left breast (6708229192909948) 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 Problem Hemochromatosis (972167529) Other hemochromatosis (E83.118) Active confirmed Problem Chronic interstitial cystitis (020077574) Interstitial cystitis (chronic) without hematuria (N30.10) Active confirmed Problem Personal history of primary malignant neoplasm of breast (604200333) Personal history of malignant neoplasm of breast (Z85.3) Active confirmed Problem History of carcinoma in situ of breast (76366068191208583 ) Personal history of in-situ neoplasm of [...] Provider Name:Mojgan samuel, 08/24/2025 01:20:00 PM, [address], [address], [place], [address], Insurance Providers Payer Name Payer Address Payer Phone Subscriber Number Group Number Insured Name Patient Relationship to Insured Coverage Start Date Coverage End Date [employer] [address] [place] [address] [phone] [id number] DAYRON MORALES Self - patient is the [...]
--- OUTSIDE RECORDS SUMMARY | 2025-08-10 16:05 | XMS_ITS | Patient Health Record ---
Author Organization [facility] Address [address] [place] [address] Care Team Providers Care Early Childhood Director Name Role Phone Ana BAILON, Cecy Primary [...] for 1 day 01/26/2022 Active Vitamin D3 07553 UNIT Orally Active Levothyroxine Sodium 112 MCG [...] Problem Status W/U Status Risk Notes Problem 126230020 Colon cancer screening (Z12.11) Active confirmed Problem 341844050 Encounter for other preprocedural examination (Z01.818) Active confirmed Plan Of Treatment Future Test Test Name Order Date COLONOSCOPY 04/05/2015 COLONOSCOPY 01/26/2022 Insurance Providers Payer Name Payer Address Payer Phone Subscriber Number Group Number Insured Name Patient Relationship to Insured Coverage Start Date Coverage End Date [facility] [address] [place], [place] [id number] DAYRON ARCE Self - patient is the insured Medical (General) History Medical History History ICD Code Colonoscopy 05/14, five-year followup for her personal history of colon polyps Hypothyroidism Hemochromatosis Osteoporosis Surgical History Surgery Date(Month/Year) back surgery breast cancer status-post lumpectomy and radiation therapy in 1996
== END 2025-08-10 14:43 | disposition home or self-care (01) ==
PROVIDERS: PCP Internal Medicine; Visit Provider Physician Assistant
DX: N76.0 Acute vaginitis (principal); M54.50 Low back pain, unspecified; Z13.9 Encounter for screening, unspecified

== ENCOUNTER 2025-08-11 11:18 | Outpatient (REF) | payer BC, SELFPAY ==
--- OUTSIDE RECORDS SUMMARY | 2024-02-21 09:00 | XMS_ITS ---
Author Organization [facility] [employer] [facility] Address [address] [place] [address] [address] [place] [address] Care Team Providers Care Petroleum Refinery Worker Name Role Phone MENG BAILON, ENRRIQUE Primary Care Provider Mojgan Willson Unavailable [phone] REASON FOR VISIT Annual SLIVER HANDLER Physical Encounters Encounter Location Date Provider Diagnosis [facility] [employer] [address] [place] [address] 02/21/2024 Mojgan Arora Plan Of Treatment Next Appt Details Provider Name:Mojgan samuel, 08/24/2025 01:20:00 PM, [address] [place] [address], [address], [place], [address], Progress Notes * EVI MORALESINEDOB:1954 (69 yo F)Acc No.[id number]:02/21/2024 PROGRESS NOTES Patient: DAYRON MORALES Appointment Provider: Sy Arora M.D. :1955 A ge:68 Y S ex:Female Date:02/21/2024 Address:[address] [place], [place] [id number] Pcp:ENRRIQUE FAN MD Subjective: * Chief Complaints: * 1 . 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 * Medical History: Objective: * Vitals: Assessment: Plan: * Treatment: * Images: Billing Information: * Visit Code: * Procedure Codes: * Electronic signature of Mitch Arora MD on 08/11/2025 at 11:21 AM EDT Sign off status: Pending * Appointment Provider: Sy Arora M.D. Date: 0 02/21/2024 Generated for Owen guevara/Colleen/Jeff on: 0 08/11/2025 11:21 AM EDT
--- OUTSIDE RECORDS SUMMARY | 2025-07-20 06:00 | XMS_ITS ---
Author Organization Total [employer] [facility] Address [address] [place] [address] [address] [place] [address] Care Team Providers Care Casting And Curing Operator Name Role Phone MENG BAILON, ENRRIQUE Primary Care Provider Mojgan Willson Unavailable [phone] REASON FOR VISIT Annual CLOTH HANDLER Physical Encounters Encounter Location Date Provider Diagnosis [facility] [employer] [address] [place] [address] 07/20/2025 Mojgan Arora Plan Of Treatment Next Appt Details Provider Name:Mojgan samuel, 08/24/2025 01:20:00 PM, [address] [place] [address], [address], [place], [address], Progress Notes * EVI MORALESINEDOB:1954 (69 yo F)Acc No.[id number]:07/20/2025 PROGRESS NOTES Patient: DAYRON MORALES Appointment Provider: Sy Arora M.D. :1955 A ge:69 Y S ex:Female Date:07/20/2025 Address:[address] [place], [place] [id number] Pcp:ENRRIQUE FAN MD Subjective: * Chief Complaints: * 1 . Annual CLOTH HANDLER Physical. * Medical History: Objective: * Vitals: Assessment: Plan: * Treatment: * Images: Billing Information: * Visit Code: * Procedure Codes: * Electronic signature of Mitch Arora MD on 08/11/2025 at 11:21 AM EDT Sign off status: Pending * Appointment Provider: Sy Arora M.D. Date: 0 07/20/2025 Generated for Owen guevara/Colleen/Jeff on: 0 08/11/2025 11:21 AM EDT
--- OUTSIDE RECORDS SUMMARY | 2025-08-11 11:21 | XMS_ITS | Patient Health Record ---
Author Organization [facility] Address [address] [place] [address] Care Team Providers Care Bricklayer Name Role Phone Ana BAILON, Cecy Primary Care Provider Baldemar Lopez Jr Unavailable [phone] Allergies Allergen (clinical drug ingredient) Drug/Non Drug [...] for 1 day 01/26/2022 Active Vitamin D3 25218 UNIT Orally Active Levothyroxine Sodium 112 MCG [...] Problem Status W/U Status Risk Notes Problem 707082252 Colon cancer screening (Z12.11) Active confirmed Problem 382248624 Encounter for other preprocedural examination (Z01.818) Active confirmed Plan Of Treatment Future Test Test Name Order Date COLONOSCOPY 04/05/2015 COLONOSCOPY 01/26/2022 Insurance Providers Payer Name Payer Address Payer Phone Subscriber Number Group Number Insured Name Patient Relationship to Insured Coverage Start Date Coverage End Date [facility] [address] [place], [place] [id number] DAYRON ARCE Self - patient is the insured Medical (General) History Medical History History ICD Code Colonoscopy 05/14, five-year followup for her personal history of colon polyps Hypothyroidism Hemochromatosis Osteoporosis Surgical History Surgery Date(Month/Year) back surgery breast cancer status-post lumpectomy and radiation therapy in 1996
--- OUTSIDE RECORDS SUMMARY | 2025-08-11 11:22 | XMS_ITS | Patient Health Record ---
Author Organization [employer] [facility] Address [address] [place] [address] Care Team Providers Care District Representative Name Role Phone ENRRIQUE FAN MD Primary Care Provider Mojgan Willson [phone] Allergies Allergen (clinical drug ingredient) Drug/Non Drug [...] Status Risk Notes Problem Postmenopausal atrophic vaginitis (52432677) Postmenopausal atrophic vaginitis (N95.2) Active confirmed Problem Age-related osteoporosis (516385160) Age-related osteoporosis without current pathological fracture (M81.0) Active confirmed Problem Hypothyroidism (22846468) Hypothyroidism, unspecified (E03.9) Active confirmed Problem Intraductal carcinoma in situ of left breast (8798984583191206) 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, [address], [place], [address], Insurance Providers Payer Name Payer Address Payer Phone Subscriber Number Group Number Insured Name Patient Relationship to Insured Coverage Start Date Coverage End Date [employer] [place] [address] [place] [address] [phone] [id number] DAYRON MORALES Self - patient is the [...]
== END 2025-08-11 11:19 | disposition home or self-care (01) ==
LOC: HO.LAB 11:18
PROVIDERS: Visit Provider Physician Assistant
DX: Z13.89 Encounter for screening for other disorder (principal)

== ENCOUNTER 2025-08-16 15:38 | Outpatient (AMB) | payer BC, SELFPAY ==
[2025-08-16 16:24] VITALS: BP 116/72; PULSE 92; RESP 16; TEMP 36.6; O2SAT 97; BMI 27.4
--- NOTE | 2025-08-16 16:24 | A.OFFPC_ITS ---
Vital Signs 08/16/25 16:24 Height 5 ft 2 in Weight 150 lb BMI 27.4 BP 116/72 Blood Pressure Location Rt brachial Position Sitting Respiration 16 Pulse 92 Pulse Source Pulse Oximeter Temp 97.9 F Temp Source Oral Pulse Oximetry (%) 97 Oxygen Delivery Method Room Air Intake Visit Reasons: Annual PE/needs a late appt/OK Intake Note: Pt is here today for her PE: Last mammogram 08/18/24, bone density scan 08/04/22, colonoscopy 05/22/22 Allergies erythromycin base Allergy (Intermediate, Verified 08/16/25 16:48) Rash Sulfa (Sulfonamide Antibiotics) Allergy (Intermediate, Verified 08/16/25 16:48) rash pseudoephedrine (From Sudafed) Allergy (Unknown, Verified 08/16/25 16:48) Palpitations Medication List - Last Reconciled 08/16/25 by Cecy Perez MD [id number] 325 mg-12.5 mcg -2.75 mg (Citracal-D3 Maximum Plus) 1 tab PO DAILY 30 days cholecalciferol (vitamin D3) 50 mcg PO DAILY 30 days cyclobenzaprine 5 mg PO TID fexofenadine (Shannan Allergy) 60 mg PO BID 7 days levothyroxine (Synthroid) 88 mcg PO DAILY lorazepam 0.5 mg PO DAILY PRN naproxen (Naprosyn) 500 mg PO BID Tobacco use date assessed: 08/16/25 Fall risk assessment: No Falls in past year Last assessed Fall Risk: 08/16/25 Dental Screening Dental Screen Date: 08/16/25 Did you have a dental visit in the last 12 months?: Yes Did you have a dental problem in the last 6 months where you did not have access to dental care?: No Was dental information given to patient?: Patient has dentist HPI Annual PE/needs a late appt/OK HPI Details 69 year-old lady with osteoporosis, hist ory of Graves disease s/p radiation tx now with hypothyroidism, hyperparathyroidism followed by endocrine clinic, has hemochromatosis, 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 He has been compliant taking her medications, feels well, with no complaints at present time. Up-to-date with her breast cancer screening, with last mammogram done a year ago, already has an appointment scheduled for her repeat mammogram. Her last bone density scan was done in 2021 which showed presence of osteoporosis in lumbar spine normal in left hip and left femur. Underwent parathyroidectomy year ago and has an appointment for follow-up with Dr. Muniz regarding her osteoporosis and hyperparathyroidism status post surgery in October 2025. Hyperplastic polyp removed by Dr. 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 History of Graves' disease History of breast cancer Hemochromatosis Hyperparathyroidism Hypothyroidism Vitamin D deficiency Osteoporosis Surgical History History of lung surgery History of back surgery H/O colonoscopy Hx of cataract extraction Hx of lumpectomy Family History Sister Hemochromatosis Mother Heart problem Hypertension Type 2 diabetes mellitus Hyperlipidemia Substance use disorder Mental health disorder Daughter Type 1 diabetes mellitus Father Hyperlipidemia Hypertension Type 2 diabetes mellitus Substance use disorder Daughter Mental health disorder Social History Household Members: Children Housing: House Are you a primary healthcare project manager to a significant other at home: No Do you presently have visiting nurse or other home services: No Alcohol intake: current Alcohol intake frequency: a few times a month Patient Tobacco Use Status: Former Tobacco user Years Smoked: 40 yrs e-Cigarette/Vaping Use: Never Used service: No Current occupational status: employed Current occupation: [employer] Cognitive needs: No Hearing needs: No Vision needs: Yes Questionnaire PHQ-9 Over the last 2 weeks, how often have you been bothered by any of the following problems? 1. Little interest or pleasure in doing things: not at all 2. Feeling down, depressed, or hopeless: not at all 3. Trouble falling or staying asleep, or sleeping too much: several days 4. Feeling tired or having little energy: several days 5. Poor appetite or overeating: several days 6. Feeling bad about yourself - or that you are a failure or have let yourself or your family down: not at all 7. Trouble concentrating on things, such as reading the newspaper or watching television: not at all 8. Moving or speaking so slowly that other people could have noticed. Or the opposite - being so fidgety or restless that you have been moving around a lot more than usual: not at all 9. Thoughts that you would be better off or of hurting yourself in some way: not at all Total score: 3 Depression Screening Interpretation: Negative Depression Screening Done: Yes 65073 - PHQ-9 Billing: Yes Source: Developed by Drs. Reagan Mast, Zabrnia Rae, Santino Laguerre and colleagues, with an educational torrie from [employer]. Thrive Questionnaire Date Thrive assessed: 08/16/25 I am a: Patient What is your living situation today?: I have a steady place to live Within the past 12 months, did the food you bought not last and you didn't have the money to get more?: Never true Within the past 12 months, did you worry whether your food would run out before you got money to buy more?: Never true Do you have trouble paying for medicines?: No Do you have trouble getting transportation to medical appointments?: No Do you have trouble paying your heating and electricity bill?: No Do you have trouble taking care of your child, family member or friend?: No Do you have trouble with day-to-day activities such as bathing, preparing meals, shopping, managing finances, etc.?: No Are you currently unemployed and looking for a job?: No Are you interested in more education?: No THRIVE Score: 0 AUDIT C Alcohol Use Questionnaire (AUDIT-C) 1. How often do you have a drink containing alcohol?: Never Total Score: 0 Score Reviewed/Action Taken: Yes ESCOBAR-7 AMB Questionnaire ESCOBAR-7 Date ESCOBAR - 7 assessed: 08/16/25 Feeling nervous, anxious, or on edge: 1 = Several days Not being able to stop or control worryin = Several days Worrying too much about different things: 1 = Several days Trouble relaxin = Not at all Being so restless that it is hard to sit still: 0 = Not at all Becoming easily annoyed or irritable: 0 = Not at all Feeling afraid as if something awful might happen: 1 = Several days Total ESCOBAR-7 score (0-4 normal; 5-9 mild; 10-14 moderate; 15-21 severe): 4 Source: Developed by Drs. Reagan Mast, Zabrina Rae, Santino Laguerre and colleagues, with an educational torrie from [employer]. ESCOBAR-7 Assessment Billing ESCOBAR-7 Assessment Tool: ESCOBAR-7 Assessment 65006 Review of Systems Const Denies headache(s), Denies lethargy, Denies malaise and Denies poor appetite Eyes Details: Goes to [facility] Details: Gets dental prophylaxis every six-months Denies headache(s) Card Denies chest pain, Denies chest pain with activity, Denies irregular heart rhythm, Denies lightheadedness, Denies dyspnea and Denies dyspnea on exertion Resp Denies chest congestion, Denies cough, Denies hemoptysis, Denies pain on inspiration, Denies dyspnea, Denies dyspnea on exertion and Denies wheezing GI Reports no additional complaints Reports no additional complaints Musc Reports no additional complaints Skin/Breast Denies breast pain, Denies breast mass and Denies rash Neuro Denies headache(s) Psych Reports no additional complaints Endo Reports no additional complaints Leif/Lymph Reports no additional complaints Aller/Immun Denies wheezing Physical exam (Primary Care) Vital Signs: Last Vital Signs Temp 97.9 F 08/16/25 16:24 Pulse 92 08/16/25 16:24 Resp 16 08/16/25 16:24 BP 116/72 08/16/25 16:24 Pulse Ox 97 08/16/25 16:24 Oxygen Delivery Method Room Air 08/16/25 16:24 BMI result Body Mass Index 27.4 Tobacco/Smoking Status: Tobacco use Status Tobacco use date assessed 08/16/25 08/16/25 16:28 Patient Tobacco Use Status Former Tobacco user 08/16/25 16:28 e-Cigarette/Vaping Use Never Used 08/16/25 16:28 PHQ-9: PHQ-9 Score PHQ-9: Total score 3 08/16/25 16:48 Depression Screening Interpretation: Negative Thrive Assessment: Date of Thrive Assessment Date Thrive assessed 08/16/25 08/16/25 16:28 Const General: no acute distress Orientation/consciousness: patient oriented x3 Limitations: no limitations HENMT Ears: hearing grossly normal bilaterally, external ears normal, TM's normal bilaterally and EAC's normal General nose exam: Normal external nose present Mouth: Normal oral and palatal mucosa present, oropharynx normal and moist mucous membranes Eyes General: appearance normal, both eyes and all related structures Neck Neck: Yes full ROM, Yes no lymphadenopathy and Yes supple Chest Breast/axilla palpation: normal palpation of the breasts and normal palpation of the axillae Resp Effort & Inspection: normal respiratory effort and able to speak in complete sentences Auscultation: clear to auscultation bilaterally Cardio Rate: regular rate Rhythm: regular rhythm Heart sounds: S1 normal heart sound present and S2 normal heart sound present GI Other: Normal bowel sounds, soft, nontender with no mass palpated General: Yes no CVA tenderness Back/Spine/Pelvis Back: no CVA tenderness and No back tenderness Skin Other: Hyperpigmented macules noted on face Neuro General: patient oriented x3, gait normal, tone normal, moves all extremities, Normal light touch and pain sensation and no focal motor deficits Cognition (Neuro): normal cognition Gait exam (Neuro): Normal gait present Extrem General: Yes full ROM, Yes no joint enlargement, Yes no clubbing, cyanosis or edema, Yes no calf tenderness and Yes normal gait Psych Appearance: grossly normal and well kempt Mental Status: mental status grossly normal Speech and movement: Normal speech and movement present Affect: normal affect Coding Level of Care Code Est Pt Prev Care >65y(39837) Diagnoses Bilateral low back pain without sciatica, unspecified chronicity M54.50 Back pain laterality: bilateral Chronicity: unspecified Sciatica presence: without sciatica Skin lesion of face L98.9 Pure hypercholesterolemia E78.00 Hyperlipidemia type: pure hypercholesterolemia Postablative hypothyroidism E89.0 Hypothyroidism type: postablative Osteoporosis M81.0 Seasonal allergic rhinitis due to pollen J30.1 Allergic rhinitis trigger: pollen Allergic rhinitis seasonality: seasonal Hemochromatosis E83.119 Annual visit for general adult medical examination with abnormal findings Z00.01 Additional Codes ESCOBAR-7 Assessment Billing - ESCOBAR-7 Assessment Tool: ESCOBAR-7 Assessment 11858 ([id number]) PHQ-9 - 38533 - PHQ-9 Billing: Yes ([id number]) Assessment & Plan Assessment & Plan (1) Low back pain: Comment: Patient's back pain has improved somewhat with intermittent ibuprofen and cyclobenzaprine. Patient will be prescribed Naprosyn to take for more continued anti-inflammatory effect. Code(s): M54.50 - Low back pain, unspecified Category: Medical Qualifiers: Back pain laterality: bilateral Chronicity: unspecified Sciatica presence: without sciatica Qualified Code(s): M54.50 - Low back pain, unspecified Plan: X-ray of lumbar spine ordered, referred for physical therapy (2) Skin lesion of face: Code(s): L98.9 - Disorder of the skin and subcutaneous tissue, unspecified Plan: Referred to dermatology for further evaluation and management and for skin cancer screening (3) Hyperlipidemia: Code(s): E78.5 - Hyperlipidemia, unspecified Category: Medical Qualifiers: Hyperlipidemia type: pure hypercholesterolemia Qualified Code(s): E78.00 - Pure hypercholesterolemia, unspecified Plan: Fasting lipid panel ordered (4) Hypothyroidism: Code(s): E03.9 - Hypothyroidism, unspecified Category: Medical Qualifiers: Hypothyroidism type: postablative Qualified Code(s): E89.0 - Postprocedural hypothyroidism Plan: Followed by Dr. Muniz, latest thyroid levels are within normal limits. Currently on levothyroxine 88 mcg daily (5) Osteoporosis: Code(s): M81.0 - Age-related osteoporosis without current pathological fracture Category: Medical Plan: Followed by Dr. Muniz, has an appointment already scheduled for October 2025 continue taking calcium and vitamin-D 3 supplements encouraged to do regular weight-bearing exercise at least 15 minutes daily (6) Allergic rhinitis: Code(s): J30.9 - Allergic rhinitis, unspecified Category: Medical Qualifiers: Allergic rhinitis trigger: pollen Allergic rhinitis seasonality: seasonal Qualified Code(s): J30.1 - Allergic rhinitis due to pollen Plan: Takes fexofenadine 60 mg twice a day (7) Hemochromatosis: Code(s): E83.119 - Hemochromatosis, unspecified Category: Medical Plan: Followed by hematology (8) Annual visit for general adult medical examination with abnormal findings: Code(s): Z00.01 - Encounter for general adult medical examination with abnormal findings Plan: Will check fasting lipids.. Continue regular dental visit every 6 months and regular eye exams, at least every 2 years. Take adequate calcium in diet and vitamin-D 3 at 2000 IU per cap once a day, in addition to weight-bearing exercises to help maintain good muscle tone and weight control. Instructed to do self-breast exam, and continue with yearly mammogram. Up-to-date with her screening colonoscopy. Will be seeing Dr. Muniz again in October 2025 for follow-up on her osteoporosis now that she had her parathyroid removed last year Orders: Orders XR lumbar spine 4V min 08/17/25 M54.50 - Low back pain, unspecified PT Evaluation and Treatment 08/16/25 M54.50 - Low back pain, unspecified Lipid Panel 08/16/25 Z13.220 - Encounter for screening for lipoid disorders Referrals Dermatology Referral L98.9 - Disorder of the skin and subcutaneous tissue, unspecified
== END 2025-08-16 17:30 | disposition home or self-care (01) ==
LOC: HO.HMCC 15:38
PROVIDERS: PCP Internal Medicine; Visit Provider Internal Medicine
DX: M54.50 Low back pain, unspecified (principal); L98.9 Disorder of the skin and subcutaneous tissue, unspecified; E78.00 Pure hypercholesterolemia, unspecified; E89.0 Postprocedural hypothyroidism; M81.0 Age-related osteoporosis without current pathological fracture; J30.1 Allergic rhinitis due to pollen; E83.119 Hemochromatosis, unspecified; Z00.01 Encounter for general adult medical examination with abnormal findings; Z00.00 Encounter for general adult medical examination without abnormal findings

== ENCOUNTER → 2025-08-16 15:38 | Outpatient (BNVA) | payer BC, SELFPAY | PROVIDERS: PCP Internal Medicine; Visit Provider Internal Medicine | DX: Z00.01 Encounter for general adult medical examination with abnormal findings (principal); M54.50 Low back pain, unspecified; L98.9 Disorder of the skin and subcutaneous tissue, unspecified; E78.00 Pure hypercholesterolemia, unspecified; E89.0 Postprocedural hypothyroidism; M81.0 Age-related osteoporosis without current pathological fracture; J30.1 Allergic rhinitis due to pollen; E83.119 Hemochromatosis, unspecified | CPT/HCPCS: 96127 ==

== ENCOUNTER 2025-08-17 14:46 | Outpatient (REF) | payer BC, SELFPAY ==
--- NOTE | ~2025-08-17 | XR_ITS ---
EXAMINATION: XR LUMBOSACRAL SPINE CLINICAL INFORMATION: M54.50 - Low back pain, unspecified COMPARISON: None available. TECHNIQUE: 5 views of the lumbar spine, inclusive of bilateral oblique views, were obtained. FINDINGS: There is a minimal right convex scoliosis. There is a normal lumbar lordosis. There is a superior endplate moderate compression deformity of L3 with approximately 30% loss of height. No additional fracture or compression deformities. There is a 13 mm spondylolisthesis of L4 on L5. There are bilateral L4 pars defects. There is no additional subluxation. There is mild to moderate diffuse disc degeneration present, most significant at L4-5 where there is moderate degeneration. There is facet degeneration most notable L4-S1. There are vascular calcifications in the soft tissues. XR/XR lumbar spine 4V min IMPRESSION: 1. Grade 1 spondylolisthesis L4-5. 2. 30% superior endplate compression deformity of L3. 3. Moderate multilevel lumbar spondylosis. Electronically signed by: Marco Antonio Swenson MD 08/17/2025 03:48 PM EDT
== END 2025-08-17 14:47 | disposition home or self-care (01) ==
LOC: HO.XRAY 14:46
PROVIDERS: PCP Internal Medicine; Visit Provider Internal Medicine
DX: M54.50 Low back pain, unspecified (principal)
CPT/HCPCS: 72110

== ENCOUNTER → 2025-08-17 14:53 | Outpatient (BNV) | payer BC, SELFPAY | PROVIDERS: PCP Internal Medicine; Visit Provider Radiology Diagnostic Radiology | DX: M47.816 Spondylosis without myelopathy or radiculopathy, lumbar region (principal); M43.8X6 Other specified deforming dorsopathies, lumbar region | CPT/HCPCS: 72110 ==

== ENCOUNTER 2025-08-24 14:43 | Outpatient (REF) | payer BC, SELFPAY ==
--- OUTSIDE RECORDS SUMMARY | 2025-07-20 06:00 | XMS_ITS ---
Author Organization Total [employer] [facility] Address [address] [place] [address] [address] [place] [address] Care Team Providers Care Control Panel Builder Name Role Phone MENG BAILON, ENRRIQUE Primary Care Provider Mojgan Willson Unavailable [phone] REASON FOR VISIT Annual PUBLIC SERVICES ASSISTANT Physical Encounters Encounter Location Date Provider Diagnosis [facility] [employer] [address] [place] [address] 07/20/2025 Mojgan Arora Plan Of Treatment Next Appt Details Provider Name:Mojgan samuel, 08/28/2026 02:40:00 PM, [address] [place] [address], [facility] [address], [place], [address], Progress Notes * EVI MORALESINEDOB:1954 (69 yo F)Acc No.[id number]:07/20/2025 PROGRESS NOTES Patient: DAYRON MORALES Appointment Provider: Sy Arora M.D. :1955 A ge:69 Y S ex:Female Date:07/20/2025 Address:[address] [place], [place] [id number] Pcp:ENRRIQUE FAN MD Subjective: * Chief Complaints: * 1 . Annual PUBLIC SERVICES ASSISTANT Physical. * Medical History: Objective: * Vitals: Assessment: Plan: * Treatment: * Images: Billing Information: * Visit Code: * Procedure Codes: * Electronic signature of Mitch Arora MD on 08/24/2025 at 03:34 PM EDT Sign off status: Pending * Appointment Provider: Sy Arora M.D. Date: 0 07/20/2025 Generated for Owen guevara/Colleen/Jeff on: 0 08/24/2025 03:34 PM EDT
--- NOTE | ~2025-08-24 | MM_ITS ---
EXAMINATION: MM SCREENING DIGITAL BREAST TOMOSYNTHESIS, BILATERAL CLINICAL INFORMATION: Screening. Asymptomatic. Personal history of left lumpectomy for breast cancer in 1996. COMPARISON: Comparison made to multiple prior, most recent August 18, 2024, and most remote November 26, 2015. TECHNIQUE: Digital breast tomosynthesis is performed in mediolateral oblique and craniocaudal views along with computer-aided detection (CAD). Synthesized 2D images are generated from the tomosynthesis. FINDINGS: BREAST COMPOSITION: There are scattered areas of fibroglandular density. RIGHT BREAST: No significant masses, suspicious calcifications or other abnormalities are seen. LEFT BREAST: Post lumpectomy changes. No significant masses, suspicious calcifications or other abnormalities are seen. MM/MM tomosynthesis screening BI IMPRESSION: BILATERAL BREASTS: Benign, no mammographic evidence of malignancy. Normal interval follow-up is recommended in 12 months. ASSESSMENT: BI-RADS: Category 2: Benign RECOMMENDATION: Routine annual mammography screening. FOLLOW-UP: 1 year F/U This examination should not preclude the clinical evaluation of a suspicious palpable abnormality. This patient's information was entered into a reminder system with a target due date for their next mammogram. Electronically signed by: Jania Hamilton MD 08/28/2025 07:03 AM EDT
--- OUTSIDE RECORDS SUMMARY | 2025-08-24 15:34 | XMS_ITS | Patient Health Record ---
Author Organization [employer] [facility] Address [address] [place] [address] Care Team Providers Care Probation Counselor Name Role Phone ENRRIQUE FAN MD Primary Care Provider Mojgan Willson [phone] Allergies Allergen (clinical drug ingredient) Drug/Non Drug Allergy documented on EMR Reaction Allergy Type Onset Date Status sulfamethoxazole / trimethoprim Bactrim Unknown Drug Allergy Active erythromycin Erythromycin Unknown Drug Allergy A ctive Results Component Value Reference Range Notes Urinalysis Reviewed date:08/24/2025 02:36:13 PM Interpretation: Performing Lab: Notes/Report: PH 5.0 PROTEIN Neg GLUCOSE Neg BLOOD Trace Reason For Referral No Information Medications Medication SIG (Take, Route, Frequency, Duration) Notes Start Date End Date Status Levothyroxine Sodium 112 MCG 1 tablet on an empty stomach in the morning Orally Once a day; Duration: 30 day(s) Active Vitamin D3 50 MCG (2000 UT) 1 capsule Or ally Once a day; Duration: 30 day(s) Active Shannan Allergy Acti ve Calcium Citrate Acti ve Social History Tobacco Use: Social History Observation [...] Question Answer Notes Tobacco use: Former smoker How long has it been since you last smoked? 1-5 years Problems Problem Type SNOMED Code ICD Code Onset Dates Problem Status W/U Status Risk Notes Problem Postmenopausal atrophic vaginitis (30764434) Postmenopausal atrophic vaginitis (N95.2) Active confirmed Problem Age-related osteoporosis (983785828) Age-related osteoporosis without current pathological fracture (M81.0) Active confirmed Problem Hypothyroidism (78759057) Hypothyroidism, unspecified (E03.9) Active confirmed Problem Intraductal carcinoma in situ of left breast (1241487546367801) 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 Problem Hemochromatosis (315166764) Other hemochromatosis (E83.118) Active confirmed Problem Chronic interstitial cystitis (698702346) Interstitial cystitis (chronic) without hematuria (N30.10) Active confirmed Problem Fibrocystic breast changes (83477930) Diffuse cystic mastopathy of unspecified breast (N60.19) Active confirmed Problem Personal history of primary malignant neoplasm of breast (682496273) Personal history of malignant neoplasm of breast (Z85.3) Active confirmed Problem History of carcinoma in situ of breast (64619616796021688 ) Personal history of in-situ neoplasm of breast (Z86.000) Active confirmed Vital Signs Temperature 97.9 degrees Fahrenheit 08/24/2025 Blood pressure diastolic 74 mm Hg 08/24/2025 Height 5 ft 1.5 in in 08/24/2025 Blood pressure systolic 102 mm Hg 08/24/2025 Weight 148 lbs 08/24/2025 BMI 27.51 kg/m2 08/24/2025 Encounters Encounter Location Date Provider Diagnosis [address] [address] 08/24/2025 Mojgan Arora Encounter for gynecological examination (general) (routine) without abnormal findings Z01.419 ; Encounter for screening mammogram for malignant neoplasm of breast Z12.31 ; Age-related osteoporosis without current pathological fracture M81.0 ; Personal history of malignant neoplasm of breast Z85.3 and Diffuse cystic mastopathy of unspecified breast N60.19 Assessments Encounter Date Diagnosis (ICD Code) Assessment Notes Treatment Notes Treatment Clinical Notes Section Notes 08/24/2025 Encounter for gynecological examination (general) (routine) without abnormal findings (ICD-10 - Z01.419) NO PAP TEST, DUE IN 2026. 08/24/2025 Encounter for screening mammogram for malignant neoplasm of breast (ICD-10 - Z12.31) REGULAR MAMMOGRAMS AND SBE'S WERE RECOMMENDED. GET A SCREENING MAMMOGRAM SCHEDULED. ADVISED PAT TO SHOW RADIOLOGIST WHERE I PALPATED CYSTS ON BOTH BREASTS. PERFORM DIAGNOSTIC MAMMOGRAM ID NEEDED. 08/24/2025 Age-related osteoporosis without current pathological fracture (ICD-10 - M81.0) DISCUSSED HER LAST BMD AND OSTEOPOROSIS AND ITS IMPACT ON HER HEALTH. ADEQUATE CALCIUM AND VIT D. WEIGHT BEARING EXERCISES. OSTEO PRECAUTIONS. REPEAT BMD THIS YEAR. 08/24/2025 Personal history of malignant neoplasm of breast (ICD-10 - Z85.3) DISCUSSED PREVIOUS HX OF BREAST CA. 08/24/2025 Diffuse cystic mastopathy of unspecified breast (ICD-10 - N60.19) DISCUSSED FINDINGS. NO DOMINANT MASS WAS NOTED. SHE HAS CYSTIC MASSES ON BOTH BREASTS. SCREENING MAMMOGRAM WAS ORDERED BUT IF ANY ABNORMALITIES ARE NOTED, WILL PROCEED WITH DIAGNOSTIC MAMMOGRAM. Plan Of Treatment Pending Test Test Name Order Date MAMMOGRAM, SCREENING 03/10/2021 MAMMOGRAM, SCREENING 02/15/2023 MAMMOGRAM, SCREENING 07/13/2024 MAMMOGRAM, SCREENING 08/24/2025 Urinalysis 03/10/2021 Urinalysis 01/14/2021 Urinalysis 03/14/2019 THIN PREP,HPV,RUCHI IF HPV+ (>29YR)(DIAG) 03/14/2019 BONE DENSITY 03/14/2019 BONE DENSITY 02/15/2023 BONE DENSITY 07/13/2024 BONE DENSITY 08/24/2025 MM Digital Mammo Screening 08/24/2025 MM Digital Mammo Screening 07/13/2024 MM Digital Mammo Screening 03/14/2019 MM Digital Mammo Screening 03/10/2021 MM Digital Mammo Screening 02/15/2023 Next Appt Details Provider Name:Mojgan Padron serenityladan, 08/28/2026 02:40:00 PM, [address], [address], [place], [address], Insurance Providers Payer Name Payer Address Payer Phone Subscriber Number Group Number Insured Name Patient Relationship to Insured Coverage Start Date Coverage End Date [employer] [address] [place] [address] [id number] DAYRON MORALES Self - patient is the [...] Back Surgery 2003 Bilateral cataract 2019 Colonoscopy Upper Left Lobe Lung Removed Hospitalization History Reason Date(Month/Year) See Surgical Hx 3 Vaginal Deliveries
--- OUTSIDE RECORDS SUMMARY | 2025-08-24 15:34 | XMS_ITS | Patient Health Record ---
Author Organization [facility] Address [address] [place] [address] Care Team Providers Care Clerk Manager Name Role Phone Ana BAILNO, Cecy Primary Care Provider Baldemar Lopez Jr Unavailable [phone] Allergies Allergen (clinical drug ingredient) Drug/Non [...] for 1 day 01/26/2022 Active Vitamin D3 76223 UNIT Orally Active Levothyroxine Sodium 112 MCG [...] Problem Status W/U Status Risk Notes Problem 043413982 Colon cancer screening (Z12.11) Active confirmed Problem 829316395 Encounter for other preprocedural examination (Z01.818) Active confirmed Plan Of Treatment Future Test Test Name Order Date COLONOSCOPY 04/05/2015 COLONOSCOPY 01/26/2022 Insurance Providers Payer Name Payer Address Payer Phone Subscriber Number Group Number Insured Name Patient Relationship to Insured Coverage Start Date Coverage End Date [facility] [address] [place], [place] [id number] DAYRON ARCE Self - patient is the insured Medical (General) History Medical History History ICD Code Colonoscopy 05/14, five-year followup for her personal history of colon polyps Hypothyroidism Hemochromatosis Osteoporosis Surgical History Surgery Date(Month/Year) back surgery breast cancer status-post lumpectomy and radiation therapy in 1996
--- OUTSIDE RECORDS SUMMARY | 2025-08-24 15:35 | XMS_ITS | Data Portability ---
Author Organization PRAKASH Dheeraj Kaufman [facility] [place] [place] [facility] Address [address] [place] [address] Assessment Encounter Date Assessment Date Assessment LastModified [...] discuss this. 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 She has been diagnosed with [...] obtained and reviewed by me today at [facility], demonstrating severe incongruent hallux valgus deformity [...] Surgeries hallux valgus correction (SURG) 2023 024 [email or web address] Not available 4 15:40:08 Imaging XR, foot, [...] Name and Address Organization Details Recorded Time 83737 erythromy amy medicatio n Not available Not available Not available 01/31/20242021 4053 RxNorm Not Available [facility] 4 10:54:00 66713 Bactrim medicatio n Not available Not available Not available 01/31/20242021 46388 9 RxNorm Not Available [facility] 4 10:54:00 73710 Substance with sulfonami de structure and antibacte rial mechanism of action (substanc e) medicatio n Not available Not available Not available 01/31/20242021 80592 8003 SNOMED Not Available [facility] 10:54:00 Medications Name Sig Start Date Stop [...] Updated DateTime 04/27/2024 157.48 cm 26.5 kg/m2 44209.89 g JUNO Bustamante [facility] 04/27/2024 14:19:13 Social History None recorded. Functional Status None recorded. Mental Status None recorded. Family History Nothing Reported. Medical History No medical history recorded. Gynecological HistoryNo gynecological history recorded. Obstetrics History GPAL:G 0 P 0 0 0 0 Past Encounters Encounter ID Performer Location Encounter Start Date Encounter Closed Date Diagnosis/Indication Diagnosis SNOMED-CT Code Diagnosis ICD10 Code Diagnosis IMO Codes Diagnosis Note [id number] MD Marlene Armstrong [address] [place] [address] 04/27/2024 13:43:28 05/17/2024 09:27:05 Foot pain 62116138 M79.671 Acquired h allux rigidus 9510218 M20.20 M20.21 Acquired r ight hallux valgus 7065632275 76666 M20.11 Overriding toes 02330823 3 M20.5X9 Health Concerns Section Related Observation LastModified by Organization Detai ls LastModified Time None Recorded Concern Status LastModified by Organization Details LastModified Time None Recorded Advance Directives Directive None Recorded Payers Insurance Date Sequence Insurance Name Policy Number Policy Saravia Covered Member ID Saravia Member ID Guarantor Name 05/18/2024 1 [facility] [employer] 111 Daja Morataya [id number] Daja Morataya Notes Date Note Type Note Provider Name and Address Organization Details Recorded Time 04/27/2024 text/html ROS as noted in the HPI Master Samuel MD [address] [place] [address] [address], [place], [address], [facility] [place] [facility] 04/27/2024 15:52:15 OBGyn Episode No OBEpisode recorded.
== END 2025-08-24 14:44 | disposition home or self-care (01) ==
LOC: HO.MAMMO 14:43
PROVIDERS: PCP Internal Medicine; Visit Provider Internal Medicine
DX: Z12.31 Encounter for screening mammogram for malignant neoplasm of breast (principal)
CPT/HCPCS: 77063; 77067

== ENCOUNTER → 2025-08-24 15:45 | Outpatient (BNV) | payer BC, SELFPAY | PROVIDERS: PCP Internal Medicine; Visit Provider Radiology Body Imaging | DX: Z12.31 Encounter for screening mammogram for malignant neoplasm of breast (principal) | CPT/HCPCS: 77063; 77067 ==

== ENCOUNTER 2025-09-12 18:08 | Outpatient (REF) | payer BC, SELFPAY ==
--- NOTE | ~2025-09-12 | MR_ITS ---
EXAMINATION: MR LUMBAR SPINE WITHOUT CONTRAST CLINICAL INFORMATION: Low back pain COMPARISON: Lumbar spine x-ray 08/17/2025 MRI lumbar spine 01/25/2010 TECHNIQUE: MRI of the lumbar spine was obtained using routine sequences without contrast. FINDINGS: There is maintained lumbar lordosis. There is grade 1 anterolisthesis L4 over L5. Rest of the vertebral alignment is normal. There is 30% loss of superior endplate amount vertebral height L3 vertebra with abnormal T2 signal on STIR sequences consistent with edema from acute compression fracture. Rest of the vertebral heights and bone marrow signal is normal. The T11-T12, T12-L1 and L1-2 disc levels unremarkable. At L2-3 disc level there is mild bulge with slight posterior superior bony component from L3 vertebral fracture flattening the ventral thecal sac the neural foramina are mildly narrowed bilaterally. At L3-4 disc level there is transverse canal spinal stenosis from moderate facet joint arthropathy. The neural foramina are mildly narrowed bilaterally. At L4-5 disc level there is grade 1 anterolisthesis L4 over L5 resulting in moderate diffuse pseudo disc bulge and moderate concentric canal stenosis. There is moderate bilateral neural foraminal narrowing worse on the left side. At L5-S1 disc level there is a broad-based diffuse bulge without spinal canal stenosis. The neural foramina are mildly narrowed bilaterally. The conus medullaris terminates at L1 and appears normal in morphology. The paravertebral soft tissues are normal. MR/MR lumbar spine wo con IMPRESSION: Acute L3 compression fracture superior endplate with approximately 30% loss of vertebral height similar to lumbar spine x-ray. If patient has significant pain secondary to fracture further treatment with kyphoplasty can be performed. Grade 1 anterolisthesis L4 over L5 with moderate diffuse bulge L4-5 disc level resulting in moderate concentric spinal canal stenosis. Degenerative disc bulges at other disc levels with narrowing of neural foramina as described above. Electronically signed by: Isiah Becerra MD 09/13/2025 07:07 AM EDT
--- OUTSIDE RECORDS SUMMARY | 2025-09-12 19:37 | XMS_ITS | Data Portability ---
Author Organization PRAKASH Dheeraj Kaufman [facility] Address [address] [place] [address] Assessment Encounter Date Assessment Date Assessment LastModified [...] discuss this. 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 She has been diagnosed with [...] obtained and reviewed by me today at [facility], demonstrating severe incongruent hallux valgus deformity with [...] Surgeries hallux valgus correction (SURG) 2023 024 [email or web address] Not available 4 15:40:08 Imaging XR, foot, [...] Name and Address Organization Details Recorded Time 54047 erythromy amy medicatio n Not available Not available Not available 01/31/20242021 4053 RxNorm Not Available [facility] 4 10:54:00 92413 Bactrim medicatio n Not available Not available Not available 01/31/20242021 35877 9 RxNorm Not Available [facility] 4 10:54:00 59930 Substance with sulfonami de structure and antibacte rial mechanism of action (substanc e) medicatio n Not available Not available Not available 01/31/20242021 56948 8003 SNOMED Not Available [facility] 10:54:00 Medications Name Sig Start Date Stop [...] Updated DateTime 04/27/2024 157.48 cm 26.5 kg/m2 52865.89 g JUNO Bustamante [facility] 04/27/2024 14:19:13 Social History None recorded. Functional Status None recorded. Mental Status None recorded. Family History Nothing Reported. Medical History No medical history recorded. Gynecological HistoryNo gynecological history recorded. Obstetrics History GPAL:G 0 P 0 0 0 0 Past Encounters Encounter ID Performer Location Encounter Start Date Encounter Closed Date Diagnosis/Indication Diagnosis SNOMED-CT Code Diagnosis ICD10 Code Diagnosis IMO Codes Diagnosis Note [id number] MD Marlene Armstrong [address] [place] [address] 04/27/2024 13:43:28 05/17/2024 09:27:05 Foot pain 12388254 M79.671 Acquired h allux rigidus 0060375 M20.20 M20.21 Acquired r ight hallux valgus 2172822211 21751 M20.11 Overriding toes 07219574 3 M20.5X9 Health Concerns Section Related Observation LastModified by Organization Detai ls LastModified Time None Recorded Concern Status LastModified by Organization Details LastModified Time None Recorded Advance Directives Directive None Recorded Payers Insurance Date Sequence Insurance Name Policy Number Policy Saravia Covered Member ID Saravia Member ID Guarantor Name 05/18/2024 1 [facility]: [employer] 111 Daja Morataya [id number] Daja Morataya Notes Date Note Type Note Provider Name and Address Organization Details Recorded Time 04/27/2024 text/html ROS as noted in the HPI Master Samuel MD [address] [place] [address] [address], [place], [address], [facility] [place] [facility] 04/27/2024 15:52:15 OBGyn Episode No OBEpisode recorded.
== END 2025-09-12 18:09 | disposition home or self-care (01) ==
LOC: HO.MRI 18:08
PROVIDERS: PCP Internal Medicine; Visit Provider Internal Medicine
DX: M54.50 Low back pain, unspecified (principal); M43.9 Deforming dorsopathy, unspecified; M43.15 Spondylolisthesis, thoracolumbar region
CPT/HCPCS: 72148

== ENCOUNTER → 2025-09-12 18:20 | Outpatient (BNV) | payer BC, SELFPAY | PROVIDERS: PCP Internal Medicine; Visit Provider Radiology Diagnostic Radiology | DX: S32.039A Unspecified fracture of third lumbar vertebra, initial encounter for closed fracture (principal); M43.16 Spondylolisthesis, lumbar region; M51.360 Other intervertebral disc degeneration, lumbar region with discogenic back pain only | CPT/HCPCS: 72148 ==

== ENCOUNTER 2025-09-13 12:05 | Outpatient (REF) | payer BC, SELFPAY ==
--- OUTSIDE RECORDS SUMMARY | 2025-07-20 06:00 | XMS_ITS ---
Author Organization [employer] [facility] Address [address] [place] [address] [address] [place] [address] Care Team Providers Care Urban Anthropologist Name Role Phone MENG BAILON, ENRRIQUE Primary Care Provider Mojgan Willson Unavailable [phone] REASON FOR VISIT Annual GUEST HISTORY CLERK Physical Encounters Encounter Location Date Provider Diagnosis [facility] [employer] [address] [place] [address] 07/20/2025 Mojgan Arora Plan Of Treatment Next Appt Details Provider Name:Mojgan samuel, 08/28/2026 02:40:00 PM, [address] [place] [address], [address], [place], [address], Progress Notes * EVI MORALESINEDOB:1954 (70 yo F)Acc No.[id number]:07/20/2025 PROGRESS NOTES Patient: DAYRON MORALES Appointment Provider: Sy Arora M.D. :1955 A ge:69 Y S ex:Female Date:07/20/2025 Address:[address] [place], [place] [phone] Pcp:ENRRIQUE FAN MD Subjective: * Chief Complaints: * 1 . Annual GUEST HISTORY CLERK Physical. * Medical History: Objective: * Vitals: Assessment: Plan: * Treatment: * Images: Billing Information: * Visit Code: * Procedure Codes: * Electronic signature of Mitch Arora MD on 09/13/2025 at 03:17 PM EDT Sign off status: Pending * Appointment Provider: Sy Arora M.D. Date: 0 07/20/2025 Generated for Owen guevara/Colleen/Jeff on: 1 03:17 PM EDT
[2025-09-13 14:35] LABS: Free T4 (Free Thyroxine) 1.37 ng/dL (0.71-1.85); Thyroid Stimulating Hormone 0.99 uIU/mL (0.32-4.0)
--- OUTSIDE RECORDS SUMMARY | 2025-09-13 15:18 | XMS_ITS | Patient Health Record ---
Author Organization [facility] Address [address] [place] [address] Care Team Providers Care Rn Examiner Name Role Phone Ana BAILON, Cecy Primary [...] at 5:00 p.m. the day before the procedure; Duration: 1 day 01/26/2022 Active Vitamin D3 36688 UNIT Orally Active Levothyroxine Sodium 112 MCG TK 1 T PO QD Orally Active Shannan Allergy 180 MG 1 tablet Swallow whole with water; do not take with fruit juices. Orally Once a day; Duration: 30 day(s) Active traZODone HCl 100 MG 1 tablet at bedtime Orally Once a day; Duration: 30 day(s) Active Immunizations Vaccine Route Administration Date Status Comme nts Influenza Unknown 10/15/2021 Administered Social History Tobacco Use: Social History Observation Description Date Details (start date - stop date) Never Smoker NA - NA Tobacco Use/Smoking Question Answer Notes Patient is a nonsmoker Problems Problem Type SNOMED Code ICD Code Onset Dates Problem Status W/U Status Risk Notes Problem Colon cancer screening (675791854) Colon cancer screening (Z12.11) Active confirmed Problem Pre-procedure evaluation check (809442663) Encounter for other preprocedural examination (Z01.818) Active confirmed Plan Of Treatment Future Test Test Name Order Date COLONOSCOPY 04/05/2015 COLONOSCOPY 01/26/2022 Insurance Providers Payer Name Payer Address Payer Phone Subscriber Number Group Number Insured Name Patient Relationship to Insured Coverage Start Date Coverage End Date [facility] [address] [place], [place] [id number] DAYRON ARCE Self - patient is the insured Medical (General) History Medical History History ICD Code Colonoscopy 05/14, five-year followup for her personal history of colon polyps Hypothyroidism Hemochromatosis Osteoporosis Surgical History Surgery Date(Month/Year) back surgery breast cancer status-post lumpectomy and radiation therapy in 1996
--- OUTSIDE RECORDS SUMMARY | 2025-09-13 15:18 | XMS_ITS | Patient Health Record ---
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 Role Phone ENRRIQUE FAN MD Primary Care Provider Mojgan Willson [phone] Allergies Allergen (clinical drug ingredient) Drug/Non Drug [...] Status Risk Notes Problem Postmenopausal atrophic vaginitis (33331202) Postmenopausal atrophic vaginitis (N95.2) Active confirmed Problem Age-related osteoporosis (151906380) Age-related osteoporosis without current pathological fracture (M81.0) Active confirmed Problem Hypothyroidism (93994381) Hypothyroidism, unspecified (E03.9) Active confirmed Problem Intraductal carcinoma in situ of left breast (5686009749360904) 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 Problem Hemochromatosis (908696657) Other hemochromatosis (E83.118) Active confirmed Problem Chronic interstitial cystitis (442772208) Interstitial cystitis (chronic) without hematuria (N30.10) Active confirmed Problem Fibrocystic breast changes (26379174) Diffuse cystic mastopathy of unspecified breast (N60.19) Active confirmed Problem Personal history of primary malignant neoplasm of breast (824981295) Personal history of malignant neoplasm of breast (Z85.3) Active confirmed Problem History of carcinoma in situ of breast (97883393284867067 ) Personal history of in-situ neoplasm of breast (Z86.000) Active confirmed Vital Signs Temperature 97.9 degrees Fahrenheit 08/24/2025 Blood pressure diastolic 74 mm Hg 08/24/2025 Height 5 ft 1.5 in in 08/24/2025 Blood pressure systolic 102 mm Hg 08/24/2025 Weight 148 lbs 08/24/2025 BMI 27.51 kg/m2 08/24/2025 Encounters Encounter Location Date Provider Diagnosis [address] [address] 08/24/2025 Mojgan Arora Encounter for gynecological examination [...] Name:Mojgan Padron serenityladan, 08/28/2026 02:40:00 PM, [address], [address], [place], [address], Insurance Providers Payer Name Payer Address Payer Phone Subscriber Number Group Number Insured Name Patient Relationship to Insured Coverage Start Date Coverage End Date [employer] [address] [place] [address] [id number] DAYRON MORALES Self - patient is the [...]
== END 2025-09-13 12:06 | disposition home or self-care (01) ==
LOC: HO.LAB 12:05
PROVIDERS: Visit Provider Internal Medicine Endocrinology, Diabetes & Metabolism
DX: E89.0 Postprocedural hypothyroidism (principal)
CPT/HCPCS: 36415; 84439; 84443

== ENCOUNTER 2025-09-13 12:08 | Outpatient (REF) | payer BC, SELFPAY | END 2025-09-13 12:09 | disposition home or self-care (01) | LOC: HO.BBR 12:08 | PROVIDERS: PCP Internal Medicine; Visit Provider Internal Medicine Medical Oncology | DX: Z13.89 Encounter for screening for other disorder (principal) ==

== ENCOUNTER 2025-09-14 13:50 | Outpatient (AMB) | payer BC, SELFPAY ==
--- OUTSIDE RECORDS SUMMARY | 2025-07-20 06:00 | XMS_ITS ---
Author Organization Total [employer] [facility] Address [address] [place] [address] [address] [place] [address] Care Team Providers Care Grain Spouter Name Role Phone MENG BAILON, ENRRIQUE Primary Care Provider Mojgan Willson Unavailable [phone] REASON FOR VISIT Annual CORPORATE QUALITY ASSURANCE MANAGER Physical Encounters Encounter Location Date Provider Diagnosis [facility] [employer] [address] [place] [address] 07/20/2025 Mojgan Arora Plan Of Treatment Next Appt Details Provider Name:Mojgan samuel, 08/28/2026 02:40:00 PM, [address] [place] [address], [address], [place], [address], Progress Notes * EVI MORALESINEDOB:1954 (70 yo F)Acc No.[id number]:07/20/2025 PROGRESS NOTES Patient: DAYRON MORALES Appointment Provider: Sy Arora M.D. :1955 A ge:69 Y S ex:Female Date:07/20/2025 Address:[address] [place], [place] [id number] Pcp:ENRRIQUE FAN MD Subjective: * Chief Complaints: * 1 . Annual CORPORATE QUALITY ASSURANCE MANAGER Physical. * Medical History: Objective: * Vitals: Assessment: Plan: * Treatment: * Images: Billing Information: * Visit Code: * Procedure Codes: * Electronic signature of Mitch Arora MD on 09/14/2025 at 04:15 PM EDT Sign off status: Pending * Appointment Provider: Sy Arora M.D. Date: 0 07/20/2025 Generated for Owen guevara/Colleen/Jeff on: 1 04:15 PM EDT
--- NOTE | 2025-09-14 13:54 | A.SPINEOV_ITS ---
Vital Signs 09/14/25 14:33 Height 5 ft 2 in Weight 149 lb BMI 27.2 Intake Visit Reasons: LBP Intake Note: Ms. 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: No Allergies erythromycin base Allergy (Intermediate, Verified 09/14/25 14:33) Rash Sulfa (Sulfonamide Antibiotics) Allergy (Intermediate, Verified 09/14/25 14:33) rash pseudoephedrine (From Sudafed) Allergy (Unknown, Verified 09/14/25 14:33) Palpitations Physical Exam Vital Signs: BMI result Body Mass Index 27.2 Assessment & Plan Assessment & Plan (1) Compression deformity of vertebra: Code(s): M43.9 - Deforming dorsopathy, unspecified Category: Medical (2) Spondylolisthesis at L4-L5 level: Code(s): M43.16 - Spondylolisthesis, lumbar region Category: Medical Plan Dear Dr Perez, Thank you for referring Mr Morataya to our office today. 70-year-old female history of osteoporosis, status post 2 back surgeries about 20 years ago here at [place], referred to the office today for evaluation of recent lumbar MRI showing L3 compression fracture, as well as L4-5 spondylolisthesis. The patient reports that sometime around late June or early July she was helping her daughter move and was lifting a lot of heavy things. A few days later when she was at work she was getting up from a chair she felt an acute onset of pain what she describes as a spasm in her back. It took her breath away and it was quite intensely painful. It was located in her lower lumbar spine. She went to urgent care the next day, they treated her with muscle relaxers. She ultimately ended up at your office and obtain a lumbar x-rays showing an L3 compression fracture with subsequent lumbar MRI showing acute L3 compression fracture as well as postsurgical changes from L3-L5 with grade 2 spondylolisthesis at L4-5. She is referred today for evaluation. The patient currently reports that her pain is significantly better. She can sit for longer, stand for longer without any major issues. Prior to the acute event where she had the onset of back pain at the office, she did have intermittent periods of back pain when she would do too much yd work or lift something but generally it was not something that was all that bothersome. She has no symptoms going down the legs. PMH: She has a relatively complicated history with her hemochromatosis, she reports that she has had a number of cancers related to this including breast cancer, status post lumpectomy and radiation, lung cancer, status post removal of cancerous lesion in the upper lobe. Her iron levels are still high and she has monthly pt of blood taken out. She also reports history of parathyroid disease, I am not sure if it was higher low levels, but she had her parathyroid removed. She has a history of osteoporosis on top of all this. She has no other major medical problems or systemic disease, no cardiovascular, stroke, kidney disease, bleeding disorders blood clots etc.. No history of major abdominal surgery. Social hx: She has not smoke, drink use any recreational drugs Medications: Synthroid, calcium and vitamin-D Allergies: Bactrim, sulfa and erythromycin, pseudoephedrine Physical exam: Awake alert oriented no acute distress, she has a large well- healed scar on the midline of her lower lumbar spine, strength and reflexes normal Imaging review: Lumbar MRI done here at [place] just a few days ago shows an acute L3 compression fracture with about 50% height loss, grade 2 spondylolisthesis at L4-5 with bilateral neuroforaminal narrowing, facet arthropathy at L5-S1, there is evidence of laminectomy from L3-L5 postsurgical changes. No significant central canal stenosis. Impression: 70-year-old female with a history of 2 previous lumbar decompressions done here at [place] about 20 years ago, history of osteoporosis, presents with 2 separate issues. The 1st is about 6 weeks ago or so she was doing some lifting helping her daughter moved in a few days later experienced acute onset back pain which would be most likely explained by her L3 compression fracture. She has a history of osteoporosis, and these are not an unusual finding to see in this population. Typically they will resolve on their own and heal up without any intervention. She is currently feeling better and that is suggesting that this is on the mend. I told her just to avoid any heavy lifting in the future as best she can, and that if the pain returns or she has new issues, she would be a candidate for kyphoplasty if the pain does not go away. Secondly is the postsurgical changes at L4-5 and L3-4 with grade 2 spondylolisthesis. The patient does not report any chronic severe low back pain. She would get intermittent flare-ups of back pain from time to time if she did too much yd work, but in general she was not feeling anything disabling. Treatment for the spondylolisthesis would be lumbar fusion and the indication for that would be chronic unrelenting low back pain, so at this time she needs no surgery for that either. Because of her osteoporosis, she would be high risk for complications anyway so it is best all around just to try to avoid this surgery if possible. I will follow up with her in 3 months just to check in on her. I told her if she is doing well she can just cancel the appointment. I sat down and reviewed all of her MRI and x-rays with her. Thank you for allowing us to care for your patient. The total time spent with this visit with this patient was 45 minutes reviewing history, physical exam, lumbar imaging review, and implementation of treatment plan or further diagnostic testing Terry Richter MD,PhD [facility] Coding Level of Care Code New Pt Level 4 (06615) Diagnoses Compression deformity of vertebra M43.9 Spondylolisthesis at L4-L5 level M43.16
[2025-09-14 14:33] VITALS: BMI 27.2
--- OUTSIDE RECORDS SUMMARY | 2025-09-14 16:16 | XMS_ITS | Patient Health Record ---
Author Organization [facility] Address [address] [place] [address] Care Team Providers Care Visitor Services Representative Name Role Phone Ana BAILON, Cecy Primary [...] Duration: 1 day 01/26/2022 Active Vitamin D3 75812 UNIT Orally Active Levothyroxine Sodium 112 MCG [...] Status Risk Notes Problem Colon cancer screening (530740038) Colon cancer screening (Z12.11) Active confirmed Problem Pre-procedure evaluation check (423882953) Encounter for other preprocedural examination (Z01.818) Active confirmed Plan Of Treatment Future Test Test Name Order Date COLONOSCOPY 04/05/2015 COLONOSCOPY 01/26/2022 Insurance Providers Payer Name Payer Address Payer Phone Subscriber Number Group Number Insured Name Patient Relationship to Insured Coverage Start Date Coverage End Date [facility] [address] [place], [place] [id number] DAYRON ARCE Self - patient is the insured Medical (General) History Medical History History ICD Code Colonoscopy 05/14, five-year followup for her personal history of colon polyps Hypothyroidism Hemochromatosis Osteoporosis Surgical History Surgery Date(Month/Year) back surgery breast cancer status-post lumpectomy and radiation therapy in 1996
--- OUTSIDE RECORDS SUMMARY | 2025-09-14 16:16 | XMS_ITS | Patient Health Record ---
Author Organization [employer] [facility] Address [address] [place] [address] Care Team Providers Care Retail Leader Name Role Phone ENRRIQUE FAN MD Primary Care Provider Mojgan Willson [phone] Allergies Allergen (clinical drug ingredient) Drug/Non Drug [...] Status Risk Notes Problem Postmenopausal atrophic vaginitis (41098558) Postmenopausal atrophic vaginitis (N95.2) Active confirmed Problem Age-related osteoporosis (512854966) Age-related osteoporosis without current pathological fracture (M81.0) Active confirmed Problem Hypothyroidism (36492159) Hypothyroidism, unspecified (E03.9) Active confirmed Problem Intraductal carcinoma in situ of left breast (3575479247982437) 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 Problem Hemochromatosis (059470941) Other hemochromatosis (E83.118) Active confirmed Problem Chronic interstitial cystitis (805593488) Interstitial cystitis (chronic) without hematuria (N30.10) Active confirmed Problem Fibrocystic breast changes (34844755) Diffuse cystic mastopathy of unspecified breast (N60.19) Active confirmed Problem Personal history of primary malignant neoplasm of breast (366117556) Personal history of malignant neoplasm of breast (Z85.3) Active confirmed Problem History of carcinoma in situ of breast (97468439774649048 ) Personal history of in-situ neoplasm of breast (Z86.000) Active confirmed Vital Signs Temperature 97.9 degrees Fahrenheit 08/24/2025 Blood pressure diastolic 74 mm Hg 08/24/2025 Height 5 ft 1.5 in in 08/24/2025 Blood pressure systolic 102 mm Hg 08/24/2025 Weight 148 lbs 08/24/2025 BMI 27.51 kg/m2 08/24/2025 Encounters Encounter Location Date Provider Diagnosis [address] [address] 08/24/2025 Mojgan Arora Encounter for gynecological examination [...] Name:Mojgan Padron serenityladan, 08/28/2026 02:40:00 PM, [address], [place], [address], Insurance Providers Payer Name Payer Address Payer Phone Subscriber Number Group Number Insured Name Patient Relationship to Insured Coverage Start Date Coverage End Date [employer] [address] [place] [address] [phone] [id number] DAYRON MORALES Self - patient is the [...]
== END 2025-09-14 15:17 | disposition home or self-care (01) ==
LOC: HO.HNS 13:51
PROVIDERS: PCP Internal Medicine; Referring Provider Internal Medicine; Visit Provider Physician Assistant
DX: M43.9 Deforming dorsopathy, unspecified (principal); M43.16 Spondylolisthesis, lumbar region
CPT/HCPCS: 99204

== ENCOUNTER 2025-10-20 10:02 | Outpatient (AMB) | payer BC, SELFPAY ==
--- OUTSIDE RECORDS SUMMARY | 2025-07-20 05:00 | XMS_ITS ---
Author Organization Total [employer] [facility] Address [address] [place] [address] [address] [place] [address] Care Team Providers Care Marketing Representative Name Role Phone MENG BAILON, ENRRIQUE Primary Care Provider Mojgan Willson Unavailable [phone] REASON FOR VISIT Annual ARMOURED CAR ESCORT Physical Encounters Encounter Location Date Provider Diagnosis [facility] [employer] [address] [place] [address] 07/20/2025 Mojgan Arora Plan Of Treatment Next Appt Details Provider Name:Mojgan samuel, 08/28/2026 02:40:00 PM, [address] [place] [address], [facility] [address], [place], [address], Progress Notes * EVI MORALESINEDOB:1954 (70 yo F)Acc No.[id number]:07/20/2025 PROGRESS NOTES Patient: DAYRON MORALES Appointment Provider: Sy Arora M.D. :1955 A ge:69 Y S ex:Female Date:07/20/2025 Address:[address] [place], [place] [id number] Pcp:ENRRIQUE FAN MD Subjective: * Chief Complaints: * 1 . Annual ARMOURED CAR ESCORT Physical. * Medical History: Objective: * Vitals: Assessment: Plan: * Treatment: * Images: Billing Information: * Visit Code: * Procedure Codes: * Electronic signature of Mitch Arora MD on 10/20/2025 at 10:05 AM EST Sign off status: Pending * Appointment Provider: Sy Arora M.D. Date: 0 07/20/2025 Generated for Owen guevara/Colleen/Jeff on: 1 12/20/2024 10:05 AM EST
--- OUTSIDE RECORDS SUMMARY | 2025-10-18 23:59 | XMS_ITS | Continuity of Care Document ---
Author Organization [facility] rgbanner Address [address] [place] [address] Sammy helga, [address] [place] [address]- Care Team Providers Care Licensed Retail Supervisor Name Role Phone Ana BAILON, Cecy Hyatt Primary Care Physician Encounter [facility] [place] Date(s): 09/18/25 - 10/18/25 [facility] [address] [place] [address] Drive [address] [place], [place] [address] Encounter Type: Triage Allergies, Adverse Reactions, Alerts Substance Criticality Severity Reaction Reaction Severity Status erythromycin hives rash Active sulfADIAZINE rash hives Active Bactrim rash Active Sudafed DM heart racing Active Medications Calcium 600 +D 1 tab, By Mouth, Daily, 0 Refills, Maintenance, 12/07/16 4:58:21 PM EST Start Date: 12/07/16 Status: Ordered Medication Dispense Status: Completed Total Allowed Fills: 1 Fills Dispensed: 0 cyclobenzaprine 5 mg oral tablet 1 tablet = 5 mg, By Mouth, 3 times a day, PRN muscle spasms Start Date: 08/27/25 Status: Ordered Medication Dispense Status: Completed Total Allowed Fills: 1 Fills Dispensed: 0 Labs Labs, See Instructions, # 1 each, Refills 0, Tot. Refills 0, Maintenance, Calcium level Albumin level to be drawn in approximately 1 week , 09/03/25 9:54:00 AM EDT, Supply Start Date: 09/03/25 Status: Ordered Medication Dispense Status: Completed Quantity: 1.0 Unit: each Total Allowed Fills: 1 Fills Dispensed: 0 levothyroxine 0.088 mg oral tablet 1 tablet = 88 mcg, By Mouth, Daily, # 30 tablet, 0 Refills, Maintenance, 08/27/25 3:58:00 PM EDT, Tablet, Partial fill upon patient request if the prescription is for a schedule II opioid drug. Start Date: 08/27/25 Status: Ordered Medication Dispense Status: Completed Quantity: 30.0 Unit: tablet Total Allowed Fills: 1 Fills Dispensed: 0 LORazepam 0.5 mg oral tablet 1 tablet = 0.5 mg, By Mouth, Daily, PRN as needed for anxiety, 0 Refills, Maintenance, 10/18/24 4:39:00 PM EST, Partial fill upon patient request if the prescription is for a schedule II opioid drug. 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 Confirmed 11/26/15 Active Postprocedural hypothyroidism Confirmed 12/11/14 Active Primary cancer of left upper lobe of lung Confirmed 09/13/24 Active Secondary hyperparathyroidism Confirmed 12/11/14 Active Vitamin D deficiency Confirmed 12/11/14 Active 110.7 mCi I-131 on 11/25/1998 2dx'd 1996, doing phlebotomy q 2-3 months Social History Social History Type Response Smoking Status Former smoker, quit more than 30 days ago entered on: 05/10/25 Sex Sex Representation Female (finding) Patient Care team information Care Team Personnel Name: Ilene OSPINA, Yessy Position: S RN Member Role: Primary Care Nurse Name: Ana BAILON , Cecy Hyatt Position: Reference Physician Member Role: PCP Address: [place] [address]- Telecom: Name: Frances Thacker RN Position: S RN Member Role: Primary Care Nurse Care Team Related Persons Name: DUKE MCARTHUR Name: BHARATH ARCE Name: MARIAN MONTEJO Insurance Providers Guarantor name: DAYRON ARCE Health Plan Information #: 1 Payer: [employer] CROSS PPO Payer Identifier: NA Member Number: [id number] Group Number: [id number] Subscriber Identifier: NA Relationship to Subscriber: self Coverage Type: NA Coverage Verification Date: NA Telecom: NA Address: [place] Health Plan Information #: 2 Payer: [address] Payer Identifier: [place] Member Number: [id number] Group Number: [id number] Subscriber Identifier: NA Relationship to Subscriber: self Coverage Type: NA Coverage Verification Date: NA Telecom: NA Address: NA
--- OUTSIDE RECORDS SUMMARY | 2025-10-19 23:59 | XMS_ITS | Continuity of Care Document ---
Author Organization [facility] Address [address] [place] [address] ve [address] [place] [address]- Care Team Providers Care Shovel Operator Name Role Phone Ana BAILON, Cecy Hyatt Primary Care Physician Encounter [facility] [place] Date(s): 09/19/25 - 10/19/[address] [place] [address]- Attending Physician: Deniz Higuera Admitting Physician: Deniz Higuera Referring Physician: tr ArYaw Encounter Type: Triage Allergies, Adverse Reactions, Alerts [...] Care team information Care Team Personnel Name: Yessy Odom RN Position: S RN Member Role: Primary Care Nurse Name: Ana BAILON , Cecy Hyatt Position: Reference Physician Member Role: PCP Address: [address] Telecom: Name: Frances Thacker RN Position: S RN Member Role: Primary Care Nurse Care Team Related Persons Name: DUKE MCARTHUR Name: BHARATH ARCE Name: MARIAN MONTEJO Insurance Providers Guarantor name: DAYRON RUFFRIEN Health Plan Information #: 1 Payer: [facility] Payer Identifier: NA Member Number: [id number] Group Number: [id number] Subscriber Identifier: NA Relationship to Subscriber: self Coverage Type: NA Coverage Verification Date: NA Telecom: NA Address: NA Health Plan Information #: 2 Payer: 0 MEDICARE SUPPL [id number] Payer Identifier: NA Member Number: [id number] Group Number: [id number] Subscriber Identifier: NA Relationship to Subscriber: self Coverage Type: NA Coverage Verification Date: NA Telecom: NA Address: NA
--- OUTSIDE RECORDS SUMMARY | 2025-10-20 10:05 | XMS_ITS | Data Portability ---
Author Organization [facility]heer[facility] Address [address] [place] [address] Assessment Encounter Date Assessment Date Assessment LastModified [...] discuss this. 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 She has been diagnosed with [...] obtained and reviewed by me today at [facility], demonstrating severe incongruent hallux valgus deformity with [...] Surgeries hallux valgus correction (SURG) 2023 024 [email or web address] Not available 4 15:40:08 Imaging XR, foot, [...] Name and Address Organization Details Recorded Time 22399 erythromy amy medicatio n Not available Not available Not available 01/31/20242021 4053 RxNorm Not Available [facility] 4 10:54:00 05281 Bactrim medicatio n Not available Not available Not available 01/31/20242021 83169 9 RxNorm Not Available [facility] 4 10:54:00 22751 Substance with sulfonami de structure and antibacte rial mechanism of action (substanc e) medicatio n Not available Not available Not available 01/31/20242021 82003 8003 SNOMED Not Available [facility] 10:54:00 Medications Name Sig Start Date [...] Updated DateTime 04/27/2024 157.48 cm 26.5 kg/m2 47577.89 g JUNO [facility] 04/27/2024 14:19:13 Social History None [...] ICD10 Code Diagnosis IMO Codes Diagnosis Note [id number] MD Marlene Armstrong [address] [place] [address] 04/27/2024 13:43:28 05/17/2024 09:27:05 Foot pain 26267813 M79.671 Acquired h allux rigidus 4733151 M20.20 M20.21 Acquired r ight hallux valgus 5571301654 36941 M20.11 Overriding toes 57532597 3 M20.5X9 Health Concerns Section Related Observation LastModified by Organization Detai ls LastModified Time None Recorded Concern Status LastModified by Organization Details LastModified Time None Recorded Advance Directives Directive None Recorded Payers Insurance Date Sequence Insurance Name Policy Number Policy Saravia Covered Member ID Saravia Member ID Guarantor Name 05/18/2024 1 [facility] [employer] [address] Daja Morataya [id number] Daja Morataya Notes Date Note Type Note Provider Name and Address Organization Details Recorded Time 04/27/2024 text/html ROS as noted in the HPI Master Samuel MD [address] [place] [address] [address], [place], [address], [facility] 04/27/2024 15:52:15 OBGyn Episode No OBEpisode recorded.
--- OUTSIDE RECORDS SUMMARY | 2025-10-20 10:05 | XMS_ITS | Patient Health Record ---
Author Organization [employer] [facility] Address [address] [place] [address] Care Team Providers Care Dielectric Tester Name Role Phone ENRRIQUE FAN MD Primary Care Provider Mojgan Willson [phone] Allergies Allergen (clinical drug ingredient) Drug/Non Drug [...] Status Risk Notes Problem Postmenopausal atrophic vaginitis (24727244) Postmenopausal atrophic vaginitis (N95.2) Active confirmed Problem Age-related osteoporosis (330076118) Age-related osteoporosis without current pathological fracture (M81.0) Active confirmed Problem Hypothyroidism (29264300) Hypothyroidism, unspecified (E03.9) Active confirmed Problem Intraductal carcinoma in situ of left breast (0646575872981337) 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 Problem Hemochromatosis (430409188) Other hemochromatosis (E83.118) Active confirmed Problem Chronic interstitial cystitis (349296370) Interstitial cystitis (chronic) without hematuria (N30.10) Active confirmed Problem Fibrocystic breast changes (74633519) Diffuse cystic mastopathy of unspecified breast (N60.19) Active confirmed Problem Personal history of primary malignant neoplasm of breast (813519266) Personal history of malignant neoplasm of breast (Z85.3) Active confirmed Problem History of carcinoma in situ of breast (41888493147645140 ) Personal history of in-situ neoplasm of breast (Z86.000) Active confirmed Vital Signs Temperature 97.9 degrees Fahrenheit 08/24/2025 Blood pressure diastolic 74 mm Hg 08/24/2025 Height 5 ft 1.5 in in 08/24/2025 Blood pressure systolic 102 mm Hg 08/24/2025 Weight 148 lbs 08/24/2025 BMI 27.51 kg/m2 08/24/2025 Encounters Encounter Location Date Provider Diagnosis [address] [address] 08/24/2025 Mojgan Arora Encounter for gynecological examination [...] Name:Mojgan Padron serenityladan, 08/28/2026 02:40:00 PM, [address], [address], [place], [address], Insurance Providers Payer Name Payer Address Payer Phone Subscriber Number Group Number Insured Name Patient Relationship to Insured Coverage Start Date Coverage End Date [employer] [place] [address] [place] [address] [phone] [id number] DAYRON MORALES Self - patient is the [...]
--- OUTSIDE RECORDS SUMMARY | 2025-10-20 10:06 | XMS_ITS | Patient Health Record ---
Author Organization [facility] Address [address] [place] [address] Care Team Providers Care Intake Man Name Role Phone Ana BAILON, Cecy Primary Care Provider Baldemar Lopez Jr Unavailable [phone] Allergies Allergen (clinical drug ingredient) Drug/Non Drug Allergy documented on EMR Reaction Allergy Type Onset Date Status sulfamethoxazole / trimethoprim Bactrim Unknown Drug Allergy Active erythromycin Erythromycin Unknown Drug Allergy A ctive Sulfa Unknown Drug Allergy Active Reason For Referral No Information Medications Medication SIG (Take, Route, Frequency, Duration) Notes Start Date End Date Status MiraLax (colon prep) 17 GM/SCOOP Powder mixed with Gatorade or Crystal Light Orally begin at 5:00 p.m. the day before the procedure; Duration: 1 day 01/26/2022 Active Vitamin D3 73966 UNIT Capsule Orally Active Levothyroxine Sodium 112 MCG Tablet TK 1 T PO QD Orally Active Shannan Allergy 180 MG Tablet 1 tablet Swallow whole with water; do not take with fruit juices. 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 [employer] Problems Problem Type SNOMED Code ICD Code Onset Dates Problem Status W/U Status Risk Notes Problem Colon cancer screening (187804159) Colon cancer screening (Z12.11) Active confirmed Problem Pre-procedure evaluation check (540805463) Encounter for other preprocedural examination (Z01.818) Active confirmed Plan Of Treatment Future Test Test Name Order Date COLONOSCOPY 04/05/2015 COLONOSCOPY 01/26/2022 Insurance Providers Payer Name Payer Address Payer Phone Subscriber Number Group Number Insured Name Patient Relationship to Insured Coverage Start Date Coverage End Date [facility] [address] [place], [place] [id number] DAYRON ARCE Self - patient is the insured Medical (General) History Medical History History ICD Code Colonoscopy 05/14, five-year followup for her personal history of colon polyps Hypothyroidism Hemochromatosis Osteoporosis Surgical History Surgery Date(Month/Year) back surgery breast cancer status-post lumpectomy and radiation therapy in 1996
--- NOTE | 2025-10-20 10:31 | MHC.OFFWIV ---
Intake Vital Signs 10/20/25 10:33 Height 5 ft 2 in Weight 152 lb BMI 27.8 BP 104/64 Blood Pressure Location Rt brachial Position Sitting Respiration 16 Pulse 82 Pulse Source Pulse Oximeter Pulse Oximetry (%) 96 Oxygen Delivery Method Room Air Intake Visit Reasons: EB-B/L ear /can not hear Intake Note: Pt is here today c/o bilateral ear blocked and H/A Patient Tobacco Use Status: Former Tobacco user Allergies erythromycin base Allergy (Intermediate, Verified 10/20/25 10:31) Rash Sulfa (Sulfonamide Antibiotics) Allergy (Intermediate, Verified 10/20/25 10:31) rash pseudoephedrine (From Sudafed) Allergy (Unknown, Verified 10/20/25 10:31) Palpitations HPI EB-B/L ear /can not hear HPI Details R > L ear discomfort and decreased hearing patient had right ear cerumen impaction [facility] Medical History (Updated 10/20/25 @ 10:58 by Paolo Bird MD) Compression deformity of vertebra Spondylolisthesis at L4-L5 level Adenocarcinoma of upper lobe of left lung Anxiety in acute stress reaction Hyperlipidemia Annual visit for general adult medical examination with abnormal findings COVID-19 vaccine series completed Osteoporosis Allergic rhinitis 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 History of Graves' disease History of breast cancer Hemochromatosis Hyperparathyroidism Hypothyroidism Vitamin D deficiency Osteoporosis Surgical History History of lung surgery History of back surgery H/O colonoscopy Hx of cataract extraction Hx of lumpectomy Family History Sister Hemochromatosis Mother Heart problem Hypertension Type 2 diabetes mellitus Hyperlipidemia Substance use disorder Mental health disorder Daughter Type 1 diabetes mellitus Father Hyperlipidemia Hypertension Type 2 diabetes mellitus Substance use disorder Daughter Mental health disorder Social History Household Members: Children Housing: House Are you a primary health care marketing specialist to a significant other at home: No Do you presently have visiting nurse or other home services: No Alcohol intake: current Alcohol intake frequency: a few times a month Patient Tobacco Use Status: Former Tobacco user Years Smoked: 40 yrs e-Cigarette/Vaping Use: Never Used service: No Current occupational status: employed Current occupation: [employer] Cognitive needs: No Hearing needs: No Vision needs: Yes Review of Systems Narrative see HPI Physical Exam Vital Signs: Last Vital Signs Pulse 82 10/20/25 10:33 Resp 16 10/20/25 10:33 BP 104/64 10/20/25 10:33 Pulse Ox 96 10/20/25 10:33 Oxygen Delivery Method Room Air 10/20/25 10:33 BMI result Body Mass Index 27.8 Const General: no acute distress and well developed Nutritional Appearance: well nourished Orientation/consciousness: patient oriented x3 HEENT Other: right ear cerumen impaction after irrigation, mild irritation of a right TM but no pus or effusion left TM normal Head: Yes normocephalic and Yes atraumatic Eyes General: appearance normal, both eyes and all related structures Pupils: Equal, round and reactive pupils present EOM: EOMs intact bilaterally Resp Effort & Inspection: normal respiratory effort Neuro General: patient oriented x3 and gait normal Cranial nerves: Yes Equal, round and reactive pupils present Psych Affect: normal affect Assessment & Plan Assessment & Plan (1) Cerumen impaction: Code(s): H61.20 - Impacted cerumen, unspecified ear Plan: cerumen impaction right worse than left s/p irrigation, patient notes that hearing is back to baseline can try Debrox drops or baby oil drop at home Medications: Refilled naproxen (Naprosyn) 500 mg PO BID 20 tabs 0RF Coding Level of Care Code Est Pt Level 3 (17783) Diagnoses Cerumen impaction H61.20
[2025-10-20 10:33] VITALS: BP 104/64; PULSE 82; RESP 16; O2SAT 96; BMI 27.8
== END 2025-10-20 11:06 | disposition home or self-care (01) ==
LOC: HO.HMCWIC 10:02
PROVIDERS: PCP Internal Medicine; Visit Provider Family Medicine
DX: H61.20 Impacted cerumen, unspecified ear (principal)

== ENCOUNTER 2025-10-29 09:27 | Outpatient (AMB) | payer BC, SELFPAY ==
--- NOTE | 2025-10-29 09:30 | MHC.OFFVIS ---
Vital Signs 10/29/25 09:32 Height 5 ft 2 in Weight 154 lb 8.705 oz BMI 28.3 BP 110/68 Blood Pressure Location Rt brachial Position Sitting Pulse 83 Pulse Source Pulse Oximeter Pulse Oximetry (%) 96 Oxygen Delivery Method Room Air Intake Visit Reasons: Hyperparathyroidism Intake Note: Patient present today for Hyperparathyroidism follow up. Patient had Parathyroidectomy 09/03/25, states she has been feeling more tired than usual. 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 Accompanied by: Self / Same As Patient Allergies erythromycin base Allergy (Intermediate, Verified 10/29/25 09:33) Rash Sulfa (Sulfonamide Antibiotics) Allergy (Intermediate, Verified 10/29/25 09:33) rash pseudoephedrine (From Sudafed) Allergy (Unknown, Verified 10/29/25 09:33) Palpitations Medication List - Last Reconciled 10/29/25 by Reagan Muniz MD [id number] 325 mg-12.5 mcg -2.75 mg (Citracal-D3 Maximum Plus) 1 tab PO DAILY 30 days cholecalciferol (vitamin D3) 50 mcg PO DAILY 30 days fexofenadine (Shannan Allergy) 60 mg PO BID 7 days levothyroxine (Synthroid) 88 mcg PO DAILY lorazepam 0.5 mg PO DAILY PRN naproxen (Naprosyn) 500 mg PO BID HPI Comments Details: 70 YO Female with PMHx Grave's Disease and Osteoporosis who is seen in F/U for Osteoporosis. First diagnosed in 2019 with her first screening BMD. She does have a history of Grave's disease s/p I131 ablation, now with hypothyroidism on Levothyroxine 112 mcg PO daily. Labs are in the hypothyroid range. She also had very high PTH levels in the past, and has had hypercalcemia off and on since 2003. We checked labs 06/05/2020 with Calcium 10.0, Alb 4.6, PTH 71, Vitamin D 47.5. Urine 24 hour Calcium was 81, and this was an adequate collection. Labs were repeated 08/07/2020 with Calcium 9.8, Albumin 4.4, PTH 68, Vitamin D 34.7. 24 hour urine calcium was assessed and was 59, with an adequate collection. She had an US of the thyroid which revealed what appeared to be a R sided parathyroid adenoma. We had a discussion regarding referral to Endocrine surgery for evaluation for hyperparathyroidism and potential surgical parathyroidectomy, vs attempting Fosamax therapy and reassess her BMD. She opted to attempt Fosamax therapy and this was started 06/2021, however she only used this for 3 weeks and then stopped it of her own accord. She reports no significant side effects of the medication, she stopped it due to life stressors. She then resumed this 06/2022 and remains on it now. No history of pathologic fracture or ONJ. Has 1 servings of dietary calcium per day in the form of milk, cheese or yogurt. Takes Citracal 1 tab PO daily. Taking Vitamin D 2000 IU daily. Denies ever using PPI, anticoagulant, antiepileptic or chronic glucocorticoid medication. Does no weight bearing exercise daily. Fracture history: Denies Height loss: Has lost 2 inches of height. 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 , breast fed for 1 year in total. History of Kidney stones: Denies Denies a family history of Osteoporosis or hip fracture. UTD on dental cleanings and sees dentist every 6 months. No planned upcoming dental work or extractions. DXA: 08/04/2022 FINDINGS: AP SPINE L1-L4: Current: BMD 0.813 g/cm2, Z-score -1.4, T-score -3.1, osteoporosis, 4.0% decrease from baseline (<5% change is not significant). Baseline: BMD 0.847 g/cm2. LEFT FEMUR, NECK: Current: BMD 0.951 g/cm2, Z-score 0.9, T-score -0.6, normal. Baseline: BMD 0.910 g/cm2. LEFT FEMUR, TOTAL: Current: BMD 0.959 g/cm2, Z-score 0.9, T-score -0.4, normal, 3.8% increase from baseline (<5% change is not significant). Baseline: BMD 0.924 g/cm2. LEFT FOREARM RADIUS 33%: BMD 0.632 g/cm2, Z-score -1.4, T-score -2.8, osteoporosis. Baseline: Not previously measured. Thyroid US: 06/11/2020 Right Thyroid Lobe: 2.3 x 0.8 x 1.4 cm, volume 1.4 mL. Parenchyma: The gland echotexture is heterogeneous. Thyroid vascularity is normal. Left Thyroid Lobe: 1.6 x 0.5 x 1.1 cm, volume 0.5 mL. Parenchyma: The gland echotexture is heterogeneous. Thyroid vascularity is normal. Isthmus: 0.1 cm in maximum AP dimension. RIGHT THYROID LOBE: No definitive thyroid nodules. However, there is a well-circumscribed, heterogeneously isoechoic, ovoid structure with peripheral hypoechoic rind posterior to the right thyroid lobe that may represent a lymph node, measuring 0.5 x 0.3 x 0.7 cm. ISTHMUS: No nodules. LEFT THYROID LOBE: No nodules. NODES: Other than the aforementioned nodule directly posterior to the right thyroid lobe, there are no enlarged. Thyroid lymph nodes. Labs: Laboratory Tests 07/17/23 07/17/23 07/17/23 06:35 10:16 10:16 Creatinine 0.77 Estimated GFR > 60 Albumin 4.5 N-Telopeptide X-linked 26 25-OH Vitamin D Total 47.2 TSH 0.90 Free T4 1.08 PTH Intact Calcium (PTH Intact) 07/17/23 10:16 Creatinine Estimated GFR Albumin N-Telopeptide X-linked 25-OH Vitamin D Total TSH Free T4 PTH Intact 117 H Calcium (PTH Intact) 9.6 She is status post parathyroidectomy Dr. Saha . Her levothyroxine dose was decreased to 100 mcg The patient is a 70-year-old individual presenting for a follow-up visit after a parathyroidectomy and for evaluation of persistent fatigue. The patient underwent a parathyroidectomy on September 20, where 3.5 glands were removed. Intraoperative PTH levels declined from 78 to 14. Pathology confirmed hypercellular parathyroid glands, and a biopsy of the remaining half of the left superior gland showed normal cellularity, which was left intact. A follow-up calcium level one week post-surgery was normal at 9.6, and the patient is currently taking one calcium pill per day. The patient denies any symptoms of hypocalcemia, such as perioral tingling or hand spasms. The patient reports experiencing persistent weakness and fatigue, which were present even before the surgery. The patient's primary care doctor suggested symptoms could last for three months post-operatively. Other relevant history includes hemochromatosis, for which the patient is followed by a operations section manager. The patient also had a COVID-19 infection on December 08, which caused a loss of taste that has since resolved. The patient's thyroid levels are stable on the current medication dose. The patient also has a history of osteoporosis, for which consideration of calcitriol is on hold to assess for bone remodeling after the parathyroidectomy. - Procedures - Status post-parathyroidectomy on September 20 with removal of 3.5 glands. - Labs - Intraoperative PTH: Declined from 78 to 14. - Postoperative calcium: Normal at 9.6 one week after surgery. - Thyroid levels: Reported as good and stable on current medication. - Pathology - The removed parathyroid glands were reported as hypercellular. - A biopsy of the left superior gland showed normal cellular parathyroid tissue. [facility] Medical History (Updated 10/29/25 @ 09:33 by KEANU Moss) Compression deformity of vertebra Spondylolisthesis at L4-L5 level Adenocarcinoma of upper lobe of left lung Anxiety in acute stress reaction Hyperlipidemia Annual visit for general adult medical examination with abnormal findings COVID-19 vaccine series completed Osteoporosis Allergic rhinitis 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 History of Graves' disease History of breast cancer Hemochromatosis Hyperparathyroidism Hypothyroidism Vitamin D deficiency Osteoporosis Surgical History (Updated 10/29/25 @ 09:33 by KEANU Moss) Hx of parathyroidectomy History of lung surgery History of back surgery H/O colonoscopy Hx of cataract extraction Hx of lumpectomy Family History Sister Hemochromatosis Mother Heart problem Hypertension Type 2 diabetes mellitus Hyperlipidemia Substance use disorder Mental health disorder Daughter Type 1 diabetes mellitus Father Hyperlipidemia Hypertension Type 2 diabetes mellitus Substance use disorder Daughter Mental health disorder Social History Household Members: Children Housing: House Are you a primary critical care unit manager to a significant other at home: No Do you presently have visiting nurse or other home services: No Alcohol intake: current Alcohol intake frequency: a few times a month Patient Tobacco Use Status: Former Tobacco user Years Smoked: 40 yrs e-Cigarette/Vaping Use: Never Used service: No Current occupational status: employed Current occupation: [employer] Cognitive needs: No Hearing needs: No Vision needs: Yes Physical Exam Vital Signs: Last Vital Signs Pulse 83 10/29/25 09:32 BP 110/68 10/29/25 09:32 Pulse Ox 96 10/29/25 09:32 Oxygen Delivery Method Room Air 10/29/25 09:32 BMI result Body Mass Index 28.3 Const Other: Healed scar status post parathyroidectomy. - Neurologic: Chvostek's sign is negative; no facial muscle twitching was observed with percussion. Assessment & Plan Assessment & Plan (1) Hyperparathyroidism: Comment: September 03, 2025 Code(s): E21.3 - Hyperparathyroidism, unspecified Category: Medical Plan: Status post parathyroidectomy with normalization of calcium and PTH according to Dr. Saha's was note. Will recheck calcium and PTH at [facility] ( [facility]) . Assuming above is normal, will recheck DEXA bone density about 7-8 months' time to see the effects of the parathyroidectomy. If patient's still remaining in the osteoporotic range, could then consider pharmacologic treatment 1. Status post-parathyroidectomy for hyperparathyroidism The patient is recovering from a successful surgery with a significant drop in intraoperative PTH and normal postoperative calcium. The remaining half gland was pathologically normal. The plan is to check calcium, albumin, PTH, and vitamin D levels to assess the function of the remaining parathyroid tissue. These labs will be drawn at [facility] reference lab ( [facility]) for accuracy. 2. Osteoporosis The patient has a known history of osteoporosis. The parathyroidectomy may lead to bone remodeling and improved bone density. The plan is to obtain a bone density scan in 8-9 months, around June, to evaluate for any changes. Based on the results, we will consider initiating medication to prevent fractures. 3. Chronic fatigue The patient's fatigue was present before surgery and has persisted. It is unlikely to be solely due to the parathyroid surgery. With normal thyroid function, other etiologies such as the patient's hemochromatosis or a post-COVID syndrome should be considered. The patient is advised to discuss this with the primary care and operations section manager, Dr. Guadalupe, and to increase physical activity. 4. Hypothyroidism The patient's thyroid levels are stable on the current medication. The patient can continue the current dose and transition thyroid monitoring to the primary care provider for annual checks. The patient had an opportunity to ask questions regarding treatment plan. The patient expressed understanding and agreement with the above treatment plan. Patient was informed and verbally consented to the use of an ambient scribe for clinic note documentation during this visit. (2) Hypothyroidism: Code(s): E03.9 - Hypothyroidism, unspecified Category: Medical Qualifiers: Hypothyroidism type: postablative Qualified Code(s): E89.0 - Postprocedural hypothyroidism Plan: Clinically and bybiochemically euthyroid on 88 mcg levothyroxine. Plan is to continue the current management. In terms of the hypothyroidism, patient returned to the care of her primary care provider and returned back to endocrinology as needed Orders: Orders Calcium Today E21.3 - Hyperparathyroidism, unspecified, M81.0 - Age-related osteoporosis without current pathological fracture Parathyroid Hormone Intact Today E21.3 - Hyperparathyroidism, unspecified, M81.0 - Age-related osteoporosis without current pathological fracture Albumin Level Today E21.3 - Hyperparathyroidism, unspecified, M81.0 - Age-related osteoporosis without current pathological fracture Vitamin D 25-OH Total Today E21.3 - Hyperparathyroidism, unspecified, M81.0 - Age-related osteoporosis without current pathological fracture XR DEXA axial skeleton 8 Months E21.3 - Hyperparathyroidism, unspecified, M81.0 - Age-related osteoporosis without current pathological fracture Coding Level of Care Code Est Pt Level 3 (82205) Diagnoses Hyperparathyroidism E21.3 Postablative hypothyroidism E89.0 Hypothyroidism type: postablative
[2025-10-29 09:32] VITALS: BP 110/68; PULSE 83; O2SAT 96; BMI 28.3
== END 2025-10-29 09:55 | disposition home or self-care (01) ==
LOC: HO.ENCR 09:27
PROVIDERS: PCP Internal Medicine; Visit Provider Internal Medicine Endocrinology, Diabetes & Metabolism
DX: E21.3 Hyperparathyroidism, unspecified (principal); E89.0 Postprocedural hypothyroidism
CPT/HCPCS: 99213